=== PATIENT | male | born 1950 | race Caucasian/White ===

== ENCOUNTER 2016-10-26 15:52 | Inpatient (IN) | payer OTHER ==
[~2016-10-26] VITALS: Ht 170.2 cm; Wt 98.5 kg
--- NOTE | ~2016-10-26 | O ---
[facility] [place] [address] OPERATIVE REPORT Name: TREY LOWRY Room #: 239-P [facility] IN M.R.#: [id number] Admission: 10/26/16 Attend Phys: Trey Dunham MD Discharge: Date of : 50 Report #: [id number] THIS REPORT FOR: //name// CC: John HU DATE OF SERVICE: 11/04/2016 DATE OF OPERATION: 11/04/2016 PREOPERATIVE DIAGNOSES: 1. Mediastinal adenopathy. 2. Interstitial pneumonitis. POSTOPERATIVE DIAGNOSES: 1. Mediastinal adenopathy. 2. Interstitial pneumonitis. 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 OPERATIVE PROCEDURES PERFORMED: 1. Mediastinoscopy. 2. Left thoracotomy with decortication of left lower lobe. 3. Biopsy of left lower lobe. SURGEON: Dr. Trey Dunham. CURING BIN OPERATOR: RODOLFO Dueñas ANESTHESIA: General. OPERATIVE INDICATIONS: The patient is a 66-year-old male with a prolonged complex history. The patient underwent decortication on the right side with findings consistent with an old hematoma/fibrothorax on that side. The patient has been slow to recover and has experienced persistent dyspnea on exertion. Repeat CT imaging has demonstrated evidence of progressive enlargement of mediastinal lymph nodes as well as a diffuse interstitial type pneumonitis present. The patient is subsequently brought to the operating now for further evaluation of these findings. Informed consent was obtained prior to proceeding with this procedure. OPERATIVE SUMMARY: The patient was brought to the operating room and placed on the OR table in supine position. After anesthesia was induced via the general endotracheal route and monitoring lines have been positioned, the patient was prepped and draped in a sterile fashion with chlorhexidine. We first made the incision low in the midline neck. We dissected down through the platysma and [address] [address] OPERATIVE REPORT Name: TREY LOWRY Room #: 239-P [facility] IN M.R.#: [id number] Admission: 10/26/16 Attend Phys: Trey Dunham MD Discharge: Date of : 50 Report #: [id number] subcutaneous tissues. We found the midline raphae, incised it and retracted the strap muscles laterally. The pretracheal fascia was incised and I was able to easily dissect bluntly with a finger into the right paratracheal space. A mediastinoscope was introduced and multiple lymph nodes from this site were biopsied. Once adequate hemostasis was achieved, the mediastinoscope was removed and the wound was closed in multiple layers with absorbable suture. Sterile dressing was applied. Drapes were removed. The patient was then placed in the right lateral decubitus position and prepped and draped in a sterile fashion again. We then made a small incision in the left chest wall, the eighth intercostal space in the posterior axillary line. I attempted to gain access to the pleural space; however, it was apparent this would not be fruitful. I then extended this incision to perform a partial thoracotomy. As we entered the left pleural space with difficulty, we found that we had actually entered into the space of a fibrous old organized fibrothorax. We ran into a chronic hematoma at the base and debrided all of this material and irrigated it. Underlying it was a very thick fibrous coating. This coating was incised and then meticulously dissected off of the left lower lobe. We also dissected it off the diaphragm as best as could be managed. The dissection was quite tedious and required extending the incision into a standard posterolateral thoracotomy. We did enter the pleural space through the seventh intercostal space and then also through the fifth intercostal space to continue the dissection more cephalad. The upper lobe did not appear to be involved, primarily it was the left lower lobe that was compressed. At the completion of the decortication, we placed two 32-[place] chest tubes and a 24 Lev drain in the left pleural space bringing them all out through separate stab incisions. The ribs were reapproximated with #1 PDS. The muscular layers were closed with #1 Vicryl, the subcutaneous with 2-0 Vicryl and the skin with a 3-0 Monocryl. The procedure was completed and the patient was taken to the postanesthesia care unit in stable condition. The operative blood loss approximately 300 mL. It should be noted that frozen section analysis of the lymph nodes demonstrated evidence of acute and chronic inflammation only. It also should be noted that once dissection of the lung was completed, I used a 15 blade and made a pulmonotomy to excise a small wedge shape section of the left lower lobe posteriorly. The site was oversewn with a 0 chromic suture. Once the procedure was completed, the wounds were closed. The patient was taken directly to the Intensive Care Unit in stable condition. <ELECTRONICALLY SIGNED> By: Trey Dunham MD 11/07/16 0744 [id number] [id number] Trey Dunham MD /nt
--- NOTE | ~2016-10-26 | CNG ---
[facility] [place] [address] CYTO-NONGYN REPORT PROCEDURE Name: TREY LOWRY Room #: 239-P ADM IN M.R.#: [id number] Admission: 10/26/16 Date of : 50 Discharge: Report #: [id number] Path Case #: [id number] CYTOPATHOLOGY REPORT COLLECTION DATE: 11/10/2016 RECEIVED DATE: 11/10/2016 SUBMITTING PHYS: Dr. Trey Dunham OTHER PHYS: Dr. Ayaan Reza CLINICAL HISTORY: SOA SPECIMEN(S) RECEIVED: A.Sputum Cytology * * * * * * * * * * * * FINAL DIAGNOSIS: Sputum cytology: - Few atypical cells identified. - Few atypical squamous metaplastic cells identified amongst bronchial epithelial cells, alveolar macrophages, and squamous cells. COMMENT: Suggest clinical correlation and repeat evaluation if clinically indicated. (JASPAL:; d/t: 11/11/16) PATHOLOGIST: Polo Underwood M.D. REPORT ELECTRONICALLY SIGNED BY: Polo Underwood M.D. DATE/TIME: 11/11/2016 13:46 * * * * * * * * * * * * GROSS PATHOLOGY: A. Sputum Cytology: The specimen is submitted unfixed, labeled "Trey Lowry". Received by the Cytology Department is 0.5 mL of mucoid material. One ThinPrep slide was prepared. ([facility] 11.10.2016) FIRE EQUIPMENT INSPECTOR HELPER(S): DELLA Zavala(ASCP) INITIAL CPT CODE(S): A; 01190 Professional services performed by [facility] at [facility] [address], [place] [address] Technical services performed by [facility] at [address] [place] [address]., [address], [place] [address]. [facility] [address] [place] [address] CYTO-NONGYN REPORT PROCEDURE Name: TREY LOWRY Room #: 239-P ADM IN M.R.#: [id number] Admission: 10/26/16 Date of : 50 Discharge: Report #: [id number] Path Case #: [id number] [facility] [address] [place] [address], [address] [place] [address] PHONE: [phone] DIRECTOR: Cesar Hannon M.D. * * * END OF REPORT * * *
--- NOTE | ~2016-10-26 | HC ---
[facility] [place] [address] CONSULTATION Name: LAVERN LOWRY Room #: 448-P [facility] IN M.R.#: [id number] Admission: 10/26/16 Attend Phys: Anselmo Bahena MD Discharge: Date of : 50 Report #: [id number] THIS REPORT FOR: //name// CC: Anselmo HU REASON FOR CONSULTATION: Chronic kidney disease. REASON FOR PRESENTATION: Shortness of breath. HISTORY OF PRESENT ILLNESS: This is a 66-year-old male patient with known past medical history of coronary artery disease; diastolic dysfunction, grade 2 with nirm-ld-xluixcfa aortic stenosis. He also has mild mitral stenosis. He was discharged from the hospital in August after having a loculated pleural effusion with empyema and underwent a video-assisted thoracoscopy and thoracotomy along with decortication. He is known to have chronic kidney disease with a baseline creatinine anywhere from 1.6 to 1.8. He is maintained on Lasix 60 mg twice a day. He visited with his local hospital in [place] after he started to have shortness of breath. This has progressively worsened over the last few days. He is also maintained on home oxygen. He had to increase the amount of his home oxygen because of the shortness of breath that was progressively worsening, associated with dyspnea on exertion. He did not notice any change in his weight. There was not any chest pain. There was not any change in his medications. He is strict with his salt intake. He realized that his O2 sat was on the low side and decided to present with the outside facility that transferred him to our facility for further evaluation and management. He continues to make appropriate amount of urine. I was consulted to manage his chronic kidney disease and his creatinine seems to be at his baseline. PAST MEDICAL HISTORY: 1. Diastolic grade 2 heart failure with almost normal ejection fraction. 2. Coronary artery disease. Status post CABG. 3. Chronic kidney disease. 4. Hyperlipidemia. 5. Hypertension. 6. Multiple coronary artery stents. 7. Peripheral arterial disease post fem-pop bypass. 8. Right endarterectomy. 9. Recent thoracotomy for empyema and decortications. SOCIAL HISTORY: He smokes cigar. He quit in 1979. No drug or alcohol abuse. He works at an [employer] store. ALLERGIES: AVANDIA. REVIEW OF SYSTEMS: GENERAL: No fever or chills. [facility] [address] [place] [address] CONSULTATION Name: LAVERN LOWRY Room #: 448-P [facility] IN M.R.#: [id number] Admission: 10/26/16 Attend Phys: Anselmo Bahena MD Discharge: Date of : 50 Report #: [id number] CARDIOVASCULAR: As per the history of present illness. PULMONARY: No cough, but significant shortness of breath. GASTROINTESTINAL: No nausea or vomiting. GENITOURINARY: No frequency. No urgency. MEDICATIONS: The patient's home medications include the followin. Levothyroxine. 2. Aspirin. 3. Norvasc. 4. Clonidine p.r.n. 5. Furosemide 60 twice a day. 6. Losartan. 7. Metoprolol. 8. Gabapentin. PHYSICAL EXAMINATION: GENERAL: He is alert and oriented. He is on 5 liters of oxygen with an O2 sat of 95 by nasal. VITAL SIGNS: Blood pressure 138/59. HEAD AND NECK: No jugular venous distention, no bruit, no thyromegaly. CHEST: Decreased air entry bilaterally, with minimal crackles. CARDIOVASCULAR: Regular with no rub detected. There is a systolic murmur at the apical area. ABDOMEN: Soft, nontender with no hepatosplenomegaly. LOWER EXTREMITIES: Chronic venous stasis changes. LABORATORY DATA: Laboratory values reviewed. His creatinine is at baseline at 1.8. BNP is elevated. Blood gas showed CO2 retention. White blood cell count is mildly elevated. ASSESSMENT, IMPRESSION AND PLAN: 1. Chronic kidney disease, at baseline. 2. Pulmonary edema. 3. Hypertension. 4. Coronary artery disease. 5. Status post decortication due to empyema recently. 6. Seems to be stable from the renal perspective. I will increase his diuretic regimen. He is known to have diastolic dysfunction and aortic stenosis along with mitral stenosis. He is currently maintained on appropriate medications including losartan and metoprolol. 7. Blood pressure seems to be under well control. 8. Strict input and output. 9. Low-salt diet. 10. Pulmonary workup in progress. 11. Follow electrolytes. [address] [address] CONSULTATION Name: LAVERN LOWRY Room #: 448-P [facility] IN M.R.#: [id number] Admission: 10/26/16 Attend Phys: Anselmo Bahena MD Discharge: Date of : 50 Report #: [id number] 12. Follow urine output. 13. Optimize his heart condition. <ELECTRONICALLY SIGNED> By: Yasmine Rider MD 10/30/16 0934 0801 1548 Yasmine Rider MD /nt
--- NOTE | ~2016-10-26 | CNG ---
[facility] [place] [address] CYTO-NONGYN REPORT PROCEDURE Name: TREY LOWRY Room #: 239-P ADM IN M.R.#: [id number] Admission: 10/26/16 Date of : 50 Discharge: Report #: [id number] Path Case #: [id number] CYTOPATHOLOGY REPORT COLLECTION DATE: 11/04/2016 RECEIVED DATE: 11/08/2016 SUBMITTING PHYS: Dr. Shruthi Iglesias OTHER PHYS: Dr. Ayaan Elizabeth CLINICAL HISTORY: OPONC/ ostomy, SOA See also [id number] SPECIMEN(S) RECEIVED: A.Sputum * * * * * * * * * * * * FINAL DIAGNOSIS: A. Sputum: - No malignant cells identified. Alveolar macrophages, few bronchial cells and mucoid debris identified. PATHOLOGIST: Jaki Evans M.D. REPORT ELECTRONICALLY SIGNED BY: Jaki Evans M.D. DATE/TIME: 11/09/2016 15:22 * * * * * * * * * * * * GROSS PATHOLOGY: A. Sputum Cytology: The specimen is submitted unfixed, labeled "Trey Lowry". Received by the Cytology Department is 2 mL of red fluid. One ThinPrep slide was prepared. ([facility] 11.08.2016) RESIDENTIAL COLLECTIONS(S): DELLA Zavala(ASCP) INITIAL CPT CODE(S): A; 12718 Professional services performed by [facility] at [facility] [address], [place] [address] Technical services performed by [facility] at [address] [place] [address]., [address], [place] [address]. [facility] [address] [place] [address] CYTO-NONGYN REPORT PROCEDURE Name: TREY LOWRY Room #: 239-P ADM IN M.R.#: [id number] Admission: 10/26/16 Date of : 50 Discharge: Report #: [id number] Path Case #: [id number] [address] [facility], [address] [place] [address] PHONE: [phone] DIRECTOR: Cesar Hannon M.D. * * * END OF REPORT * * *
--- NOTE | ~2016-10-26 | S ---
[facility] [place] [address] SURGICAL PATH RPT PROCEDURE Name: LAVERN LOWRY Room #: 448-P ADM IN M.R.#: [id number] Admission: 10/26/16 Date of : 50 Discharge: Report #: [id number] Path Case #: [id number] PATHOLOGY REPORT COLLECTION DATE: 10/28/2016 RECEIVED DATE: 10/28/2016 SUBMITTING PHYS: Dr. Omaira Troncoso OTHER PHYS: Dr. Ayaan Rider SPECIMEN(S) RECEIVED: A.Peripheral smear * * * * * * * * * * * * FINAL DIAGNOSIS: Peripheral blood smear: - Moderate normocytic anemia. (see comment) COMMENT: Overall, the peripheral blood has moderate normocytic anemia. There is a slight suggestion of rouleaux. WBC and platelet counts are within the normal reference ranges. The etiology of the findings is unclear based entirely on slide review. Potential causes of normocytic anemia include anemia of chronic disease, treated and/or compensated vitamin and mineral deficiencies, acute blood loss, dilutional, and primary bone marrow disorders. Rouleaux can be seen in chronic inflammatory states and increased immunoglobulin production. Correlation with clinical history and additional laboratory data is recommended. (LEONEL:; d/t: 10/28/16) PATHOLOGIST: Anitha Landeros M.D. REPORT ELECTRONICALLY SIGNED BY: Anitha Landeros M.D. DATE/TIME: 10/28/2016 23:10 * * * * * * * * * * * * MICROSCOPIC DESCRIPTION: CBC Data (10/28/16): WBC 8,900 /uL, RBC 2.91, hemoglobin 8.4 g/dL, hematocrit 26.0%, MCV 89.2 fL, MCH 29.0 pg, MCHC 32.5 g/dL, RDW 17.0%, and platelet count 279,000 /uL. Automated white blood cell differential: 68.8% segs, 13.5% lymphs, 10.5% monos, 6.5% eos, and 0.7% basos. Peripheral Blood Smear: Cytomorphological examination of the Serna's stained peripheral blood smear confirms the provided data. Red blood cells show moderate to severe normocytic anemia with no significant [address] [address] SURGICAL PATH RPT PROCEDURE Name: LAVERN LOWRY Room #: 448-P ADM IN M.R.#: [id number] Admission: 10/26/16 Date of : 50 Discharge: Report #: [id number] Path Case #: [id number] anisopoikilocytosis. No schistocytes or microspherocytes are seen. There is a slight suggestion of rouleaux. White blood cells are predominantly segmented neutrophils and are without significant dyspoiesis or significant left shift. Lymphocytes are predominantly small, round, and mature appearing with condensed chromatin and scant cytoplasm with admixed large granular lymphocytes. Monocytes are mature. Platelets are adequate in number and mainly normal in morphology with rare larger platelets noted. CLINICAL HISTORY: 66 year-old man with anemia. Morphologic review of the peripheral blood smear is requested by the patient's physician. INITIAL CPT CODE(S): A; NC Professional services performed by [facility] at [facility] [address], [place] [address] Technical services performed by [facility] at [address] [place] [address], [address] [address]. [facility] [address] [place] [address] PHONE: [phone] DIRECTOR: Cesar Hannon M.D. * * * END OF REPORT * * *
--- NOTE | ~2016-10-26 | HC ---
[facility] [place] [address] CONSULTATION Name: LAVERN LOWRY Room #: 448-P ADM IN M.R.#: [id number] Admission: 10/26/16 Attend Phys: Luisa Spencer MD Discharge: Date of : 50 Report #: [id number] THIS REPORT FOR: //name// CC: Luisa HU HISTORY OF PRESENT ILLNESS: The patient was admitted on 10/26/2016 for shortness of breath. The patient consulted today. Admitting physician is Dr. Ng. We are being consulted today for increased size and mediastinal adenopathy. The patient is known to our service, had recently underwent a right thoracotomy with decortication for empyema on 09/15/[address] Levi Mcclendon. The patient is still complaining of some shortness of breath and dyspnea on exertion and orthopnea. PAST MEDICAL HISTORY: Diastolic congestive heart failure, unknown ejection fraction, coronary artery disease, chronic kidney disease stage III, diabetes type 2, hypertension, hyperlipidemia, hypothyroidism. PAST SURGICAL HISTORY: Right thoracotomy with decortication as previously stated, coronary artery bypass grafting x 1 in 2002 followed by coronary catheterization in 2014 with stent placement and has had previous right fem-pop as well as a right carotid endarterectomy with a great toe I and D. SOCIAL HISTORY: The patient currently lives at home. He quit smoking cigars in 1979. He occasionally drinks wine. The patient works in an [employer] store. FAMILY HISTORY: Mother and father are both . Mother was 80. Complications of diabetes. Father was 63, [place]. ALLERGIES: LATEX. HOME MEDICATIONS: As follows: Clonidine, Lasix 20 mg, losartan 50 mg, metoprolol 50 mg, NovoLog, levothyroxine 150 mcg, aspirin 81 mg, gabapentin 300 mg, atorvastatin 80 mg, and amlodipine 10 mg. REVIEW OF SYSTEMS: CONSTITUTIONAL: The patient does complain of some fatigue and difficulty sleeping. HEENT: Denies any headache, dizziness or hearing loss. RESPIRATORY: Does complain of shortness of breath, dyspnea on exertion with orthopnea. Denies any wheezing. Has occasional cough. CARDIOVASCULAR: Denies chest pain, jaw pain, arm pain or murmurs. SKIN: Denies any rashes, psoriasis or eczema. ENDOCRINE: Denies cold feet, night sweats, lack of concentration. GASTROINTESTINAL: Denies nausea, vomiting, diarrhea. Does have issues with constipation. GENITOURINARY: Denies any urinary frequency, hematuria or dysuria. [facility] [address] [place] [address] CONSULTATION Name: LAVERN LOWRY Room #: 448-P [facility] IN M.R.#: [id number] Admission: 10/26/16 Attend Phys: Luisa Spencer MD Discharge: Date of : 50 Report #: [id number] NEUROLOGIC: Denies seizures or neuropathy. PSYCHOLOGICAL: Denies hallucination, depression or anxiety. MUSCULOSKELETAL: Denies joint pain, stiffness, swelling or claudication. IMMUNOLOGIC: Denies lupus, rheumatoid arthritis or celiac disease. PHYSICAL EXAMINATION: VITAL SIGNS: Blood pressure is 119/55, pulse of 61, respirations 22, temperature is 36.2, O2 sat of 94% at 8-1/2 liters via nasal cannula. GENERAL: The patient is well developed, well nourished, mildly obese, has normal speech and mentation. HEENT: Eyes are PERRLA. He is normocephalic. Gaze appearing conjugate in all positions. No evidence of nystagmus. CARDIOVASCULAR: Shows regular rate and rhythm. S1, S2. LUNGS: Shows some fine crackles throughout, diminished to right lower lobe and coarseness to left lower lobe. ABDOMEN: Soft, nontender. Bowel sounds present in all 4 quadrants. SKIN: Shows normal color, normal turgor. MUSCULOSKELETAL: Has 5/5 strength in all muscle groups. NEUROLOGIC: Cranial nerves 2-12 are examined and intact. PSYCHIATRIC: The patient is alert and oriented x 3. LABORATORY DATA: Sodium is 140, potassium is 5.1, chloride 102, CO2 is 40, BUN is 75, creatinine is 2.2. White blood cell count is 10.5, hemoglobin is 8.7, hematocrit 16.2 and platelets are 211. ASSESSMENT: 1. Mediastinal adenopathy. 2. The patient's recent empyema, status post right thoracotomy with decortication on 09/15/[address] Levi Mcclendon. 3. Chronic kidney disease. 4. Hypertension. PLAN: We have discussed with myself the plan of potential mediastinoscopy for diagnostic tissue, will be in later today and discuss in more detail and give final recommendation and possible planning and scheduling this gentleman. By: [id number] 2315 RODOLFO Encarnacion /nt
--- NOTE | ~2016-10-26 | HC ---
[facility] [place] [address] CONSULTATION Name: TREY LOWRY Room #: 215-P [facility] IN M.R.#: [id number] Admission: 10/26/16 Attend Phys: Trey Dunham MD Discharge: Date of : 50 Report #: [id number] THIS REPORT FOR: //name// CC: Trey HU HISTORY OF PRESENT ILLNESS: This is a 66-year-old white male who was recently hospitalized here on 09/09/2016, noted to have a loculated pleural effusion and underwent bronchoscopy with a right video-assisted thoracoscopy and a right thoracotomy with decortication on 09/15/2016. He was treated for acute on chronic diastolic heart failure. He was discharged home. He was on a couple of liters nasal prong O2. He initially was doing well, but then began having worsening shortness of breath. He was readmitted with acute on chronic congestive heart failure. He had respiratory failure, cardiology and pulmonary have been closely involved and he warranted mechanical ventilation in the intensive care unit. He was able to be extubated on 11/11/2016. He has been on 4 liters nasal prong O2. Nephrology has been involved as well as hematology with his anemia. He does have anemia of chronic disease. He was noted to have significant weakness, had been on high dose methylprednisolone as well as electrolyte abnormalities, chronic kidney disease and the anemia. We are seeing him in rehabilitation medicine consultation. Apparently, a surgical biopsy that was undertaken of his lung [facility] with results pending. PAST MEDICAL HISTORY: Includes coronary artery bypass grafting times 1, fem-pop bypass of the right lower extremity, and right carotid endarterectomy. MEDICATIONS: Please see the full medication listing. SOCIAL HISTORY: Lives in [place], [place]; has been working in an [employer] store, lives in a house with a ramp. He was on nasal prong O2 a couple liters premorbidly. He has a daughter lives in [place] that assist him. He may be able to stay with the daughter as well. REVIEW OF SYSTEMS: Did not offer any current complaints of chest pain, shortness of breath or abdominal discomfort. He notes some shortness of breath with limited activities. Does complain of generalized weakness. No focal extremity pain complaints. PHYSICAL EXAMINATION: GENERAL: A 66-year-old white male, in no obvious distress. The patient is alert and oriented. VITAL SIGNS: Last recorded temperature 98.4, pulse 66, respirations 20, blood pressure 147/63. HEENT: Appeared to be benign. Cranial nerves are grossly intact. He is currently on 4 liters nasal prong O2. EXTREMITIES: Functional range of motion of both upper extremities. Strength is grade 3+ to 4-/5. DTRs are trace to 1. Lower extremities, no focal calf [facility] [address] [place] [address] CONSULTATION Name: TREY LOWRY Room #: 215-P ADM IN M.R.#: [id number] Admission: 10/26/16 Attend Phys: Trey Dunham MD Discharge: Date of : 50 Report #: [id number] swelling, functional range of motion with strength a grade 4-/5. DTRs are trace to 1. He has been mod assist with sit to stand and had been ambulating 4 steps min assist with 5 liters. ASSESSMENT: A 66-year-old white male with the following problem list: 1. Medical complexity with generalized debilitation. He may have a critical illness myopathy with the prolonged mechanical ventilation, ICU stay, IV methylprednisolone, electrolyte abnormalities, and metabolic abnormalities. 2. Respiratory failure, acute on chronic since extubated on nasal prong O2. 3. Acute on chronic congestive heart failure. 4. Mediastinal adenopathy status post video-assisted thoracoscopy with decortication and biopsy. 5. Moderate aortic stenosis. 6. Coronary artery disease with history of coronary artery bypass grafting and coronary angioplasty. 7. Hypertension. 8. Hypercholesterolemia. 9. Peripheral vascular disease with history of femoral popliteal bypass and right carotid endarterectomy. 10. Acute on chronic renal insufficiency. 11. Diabetes mellitus type 2. 12. Anemia. 13. Hyponatremia. 14. Moderate protein-calorie malnutrition. PLAN: Therapies are continuing to work with him. Insurance will need to be checked regarding a short acute in-hospital inpatient rehabilitation stay. We will see how he does and follow along with you. Thank you for asking us to assist in this patient's care. <ELECTRONICALLY SIGNED> By: Max Macdonald MD 11/14/16 1648 [id number] Max Macdonald MD /nt
--- NOTE | ~2016-10-26 | S ---
[facility] [place] [address] SURGICAL PATH RPT PROCEDURE Name: TREY LOWRY Room #: 215-P ADM IN M.R.#: [id number] Admission: 10/26/16 Date of : 50 Discharge: Report #: [id number] Path Case #: [id number] PATHOLOGY REPORT COLLECTION DATE: 11/04/2016 RECEIVED DATE: 11/04/2016 SUBMITTING PHYS: Dr. Trey Dunham OTHER PHYS: Dr. Ayaan Spencer ADDENDUM REPORT (Order Date: 11/10/2016 00:00) ADDENDUM DIAGNOSIS: Patient Name: Trey Lowry: [id number] Special [place] [address], on case [id number], labeled with their number [id number], dated 11/09/2016. Diagnosis: Lung, left lower lobe, wedge biopsy ([id number]; 11/04/2016): Pleural scarring and underlying lung tissue showing extensive hemorrhage, probably traumatic, and marked mural vascular thickening, probably secondary (see below). Diagnosis Comment: Dear Dr. Landeros, I have reviewed the slides of Trey Lowry along with the records you provided. Briefly this patient is a 66-year-old man who has bilateral loculated effusions with some changes raising the possibility of asbestos-related disease. He has a history of chronic congestive heart failure and some pulmonary infiltrates that were thought possibly to be related to pulmonary edema. He has a history of coronary artery bypass. He is a former smoker. He had a decortication in August and has come back with increased dyspnea and lung infiltrates and a lung biopsy was taken along with a right paratracheal lymph node. The right paratracheal lymph node was sent to us for a second opinion. Sections of the left lower lobe wedge biopsy were sent for a second opinion. I cannot make any specific diagnosis for an interstitial lung disease here and it is not clear we have a good sample of what is going on in his lung away from the regions of pleural scarring and atelectasis. There appears to have been significant adhesions based on the pleural scarring that is present and I suspect that explains the extensive fresh hemorrhage that is present in the lung tissue. I take the hemorrhage to be artifact. The lung tissue does show appreciable mural vascular thickening with some elastosis and adventitial fibrosis and some vessels showing myointimal thickening. I suspect these are probably all local changes related to chronic atelectasis and/or pleural scarring in this region. Some of the changes could also be due to cardiac disease. The [place] [address] SURGICAL PATH RPT PROCEDURE Name: TREY LOWRY Room #: 215-P [facility] IN M.R.#: [id number] Admission: 10/26/16 Date of : 50 Discharge: Report #: [id number] Path Case #: [id number] pulmonary vascular disease, but that would be best assessed clinically. In summary, I am not able to identify any definite underlying interstitial lung disease although this is a suboptimal biopsy based on the adhesions and hemorrhage to address such a possibility. Thank you for the opportunity to review this case. Sincerely, Rodolfo Espinoza M.D. Electronically signed Specimen(s): A:Lung, left lower lobe, biopsy-([id number]; 11/04/2016; 3 slides) A complete copy of the report is on file. Professional services performed by [address] [address]. Technical services performed by [facility] [address] [place] [address], [address], [place] [address]. ADDENDUM COMMENT: ELECTRONICALLY SIGNED BY: Jaki Evans M.D. for Anitha Landeros M.D. DATE/TIME:11/15/2016 10:54 SPECIMEN(S) RECEIVED: A.Right paratracheal lymp nodes B.Left lower lung lobe biopsy * * * * * * * * * * * * FINAL DIAGNOSIS: A. "Right paratracheal lymp nodes," incisional biopsy: - Lymph nodes with mildly atypical lymphoplasmacytic hyperplasia; no diagnostic evidence of lymphoma or metastatic carcinoma. (see comment) B. "Left lower lung lobe biopsy," wedge biopsy: - Pending outside consultation. (see comment) COMMENT: Within specimen A, sections show fragments of lymph node with overall retained but mildly distorted lymph node architecture. There are expanded sinuses with benign appearing histiocytes. Small scattered well formed germinal centers containing polarized mantle/marginal zones are identified. There is an interfollicular expansion by mature appearing plasma cells. The plasma cells are without marked [facility] [address] [place] [address] SURGICAL PATH RPT PROCEDURE Name: TREY LOWRY Room #: 215-P ADM IN M.R.#: [id number] Admission: 10/26/16 Date of : 50 Discharge: Report #: [id number] Path Case #: [id number] atypia. The lymphocytes are predominantly small, round, and mature appearing with condensed chromatin and scant cytoplasm with admixed larger lymphoid cells within the germinal centers. No markedly atypical lymphoid cells, including Eliazar-Shaggy cells, are identified. No granulomas or other infiltrative processes including metastatic carcinoma are identified. To highlight the lymph node architecture and to identify cells in a tissue architectural context, properly controlled immunohistochemical stains are performed. (Block A1) CD20: highlights B-cells primarily in follicles PAX-5: highlights B-cells primarily in follicles CD3: stains interfollicular T-cells CD5: stains interfollicular T-cells; no B-cell co-expression CD10: stains the germinal centers BCL-6: stains the germinal centers BCL-2: the germinal centers are non-reactive CD23: highlights follicular dendritic cell meshwork Cycl[place] D-1: lacks diffuse nuclear staining CD43: highlights the T-cells; no B-cell co-expression MUM-1: stains the numerous sinus plasma cells CD138: stains the numerous sinus plasma cells AE1/AE3: non-reactive [place] and lambda in situ hybridization: plasma cells are polyclonal The left lower lobe lung biopsy was sent for outside consultation to the [facility] in [place], [place]. The findings will be reported as an addendum when available. Overall, the lymph nodes show mildly atypical lymphoplasmacytic hyperplasia. There is no diagnostic evidence of lymphoma or metastatic carcinoma. The lung biopsy is pending outside consultation. Clinical and radiographic correlation is recommended. The case is discussed preliminarily with Dr. Omaira Troncoso on 11/09/16 at 11:15 AM. (CLW:; d/t: 11/09/16) PATHOLOGIST: Anitha Landeros M.D. REPORT ELECTRONICALLY SIGNED BY: Anitha Landeros M.D. DATE/TIME: 11/10/2016 17:10 * * * * * * * * * * * * GROSS PATHOLOGY: A. The specimen is received fresh from the OR labeled with the patient's name and "right paratracheal lymph node" and consists of red villasenor fragments of tissue measuring an aggregate of 2.0 x 1.5 x 0.5 cm. Submitted entirely for frozen section as FSA1 and subsequently submitted for permanent section as A1. (IUV:pete; d/t: 11/04/2016) [address] [address] SURGICAL PATH RPT PROCEDURE Name: TREY LOWRY Room #: 215-P ADM IN .R.#: [id number] Admission: 10/26/16 Date of : 50 Discharge: Report #: [id number] Path Case #: [id number]. The specimen is received in formalin labeled "Trey Lowry, left lower lobe lung biopsy". Received is a segment of red-brown lung tissue measuring 2.1 x 2.1 x 1.1 cm in greatest dimensions. The surgical margin cannot be grossly identified. The specimen is serially sectioned and entirely submitted in cassettes B1 through B3. (CAA; 11/04/2016) FROZEN SECTION DIAGNOSIS: (Jaki Evans M.D.) FSA1, right paratracheal lymph nodes, biopsy: - No definite carcinoma seen. These findings are discussed with Dr. Spencer in OR5 at [facility], and a written report is placed on the patient's chart. IUV:pete; d/t: 11/04/2016) Testing performed by [facility] at [place] [address] [place] [address] CLINICAL HISTORY: History of interstitial lung disease ?undergoing wedge biopsy currently along with mediastinoscopy to rule out lung cancer INITIAL CPT CODE(S): A; 30037, 52712, 62806, 82001, 92162, 37937, 66394, 28401, 03319, 63832, 30981, 38065, 67745, 23906, 99066, 41801, 65516 B; 56711 Professional services performed by [facility] at [facility] [address], [place] [address] Technical services performed by [facility] at [address] [place] [address], [address], [place] [address]. [facility] [address] [place] [address] PHONE: [phone] DIRECTOR: Cesar Hannon M.D. * * * END OF REPORT * * *
--- NOTE | ~2016-10-26 | 2DMMODE ---
[facility] [place] [address] 2 D/M-MODE ECHOCARDIOGRAM Name: LAVERN LOWRY Room #: 239-P ADM IN M.R.#: [id number] Admission: 10/26/16 Attend Phys: Lavern Dunham, Discharge: Date of : 50 Date of Service: 11/04/16 180 Report #: [id number] THIS REPORT FOR: //name// APPROVED REPORT Study performed: 11/04/2016 14:04:23 EXAM: Limited 2D, Doppler, and color-flow Echocardiogram Patient Location: Bedside/Room 239 Blood Pressure: 136/64 mmHg HR: 74 bpm Rhythm: NSR Other Information Study Quality: Adequate/Patient in ICU post op on vent. Indications Abbreviated echo for LV function, PHTN. Hx: CHF, CABG, HTN, DM. (Complete echo done 09/10/2016) 2D Dimensions RVDd: 37.32 mm Tricuspid Valve TR Peak Burak.: 3.97 m/s RAP Estimate: 10.00 mmHg TR Peak Gr.: 62.95 mmHg RVSP: 73.00 mmHg Left Ventricle The left ventricle is normal size. There is normal LV segmental wall motion. There is concentric left ventricular hypertrophy. Left ventricular systolic function is normal. LVEF is 55-60%. Right Ventricle The right ventricle is normal size. The right ventricular systolic function is normal. Atria Left atrium is dilated. The right atrium size is normal. Aortic Valve Aortic valve moderately calcified. No Doppler [facility] [address] [place] [address] 2 D/M-MODE ECHOCARDIOGRAM Name: LAVERN LOWRY Room #: 239-P ADM IN M.R.#: [id number] Admission: 10/26/16 Attend Phys: Lavern Dunham, Discharge: Date of : 50 Date of Service: 11/04/161806 Report #: [id number] Mitral Valve Severe mitral annular calcification. Thickened and calcified leaflets. Trace to mild mitral regurgitation. Tricuspid Valve The tricuspid valve is normal in structure. There is moderate tricuspid regurgitation. The right atrial pressure is estimated at 10 mmHg. There is severe pulmonary hypertension with an estimated PAP of 73mmHg. Great Vessels IVC is normal in size and collapses <50% with inspiration. Pericardium There is no pericardial effusion. <Conclusion> Left ventricular systolic function is normal. There is normal LV segmental wall motion. LVEF 55-60%. Left atrium is dilated. Aortic valve moderately calcified. No Doppler Severe mitral annular calcification. Thickened and calcified leaflets. No Doppler There is severe pulmonary hypertension with an estimated PAP of 73mmHg. There is no pericardial effusion. <ELECTRONICALLY SIGNED> By: Cain Wang MD, [facility] 11/04/161806 06 1807 Cain Wang MD, FACC /INF
[~2016-10-26 15:52] MED LIST: AMLODIPINE BESY10 MG PO; ASPIRIN81 M2 PO; ATORVASTATIN CA40 MG PO; BRILINTA90 MG PO; CENTRUM SILVER1 EAC4 PO; CLONIDINE0.1 PO; COZAAR 50 MG TA50 M2 PO; LASIX 20 MG TAB20 MG PO; LEVOTHYROXINE 0.15MG PO; LOPRESSOR50 PO; NEURONTIN 300300 M1 PO; NOVOLOG MI100 UNIT/M SC; NOVOLOG100 UNIT/1
[2016-10-26 21:05] VITALS: BP 147/59
[2016-10-26 21:37] LABS: HEMATOCRIT 26.1 % (42.0-52.0); HEMOGLOBIN 8.4 gm/dL (14.0-18.0); MCH 28.8 pg (26.0-34.0); MCHC 32.3 g/dL (28.0-37.0); MCV 89.2 fL (80.0-100.0); RBC 2.93 mil/uL (4.50-6.00); RDW 17.1 % (10.5-14.5); WBC 11.7 thou/uL (4.0-11.0)
[2016-10-26 21:44] LABS: ANION GAP 0 mmol/L (7-16); BUN 57 mg/dL (7-18); CALCIUM 9.5 mg/dL (8.5-10.1); CHLORIDE 98 mmol/L (98-107); CO2 39 mmol/L (21-32); CREATININE 1.8 mg/dL (0.6-1.3); GLUCOSE 201 mg/dL (70-99); SODIUM 137 mmol/L (136-145)
[2016-10-26 21:52] LABS: TROPONIN-I < 0.04 ng/mL (<0.04-0.07)
[2016-10-26 23:07] LABS: ABG SAMPLE TYPE ARTERIAL; BE(vivo) 12.7 mmol/L (-2 to +3); HCO3 38.2 mmol/L (22.0-26.0); LACTATE 1.12 mmol/L (0.5-2.0); O2(CT) 12.2 mL/dL (15.0-23.0); O2Hb 91.7 % (92.0-98.0); PCO2 55.5 mmHg (35.0-45.0); PO2 69.6 mmHg (80.0-100.0); STICK SITE RRA; pH 7.456 (7.360-7.450); sO2 94.4 % (92.0-98.0); tCO2 39.9 mmol/L (24.0-30.0)
[2016-10-26 23:20] VITALS: BP 149/68
[2016-10-27 00:02] VITALS: BP 142/74
[2016-10-27] MEDS ORDERED: NEURONTIN 300300 M1 PO (01:57)
[2016-10-27] MEDS ORDERED: CENTRUM SILVER1 EAC4 PO (01:58)
[2016-10-27 03:00] VITALS: BP 138/59
[2016-10-27 06:49] LABS: MAGNESIUM 2.3 mg/dL (1.8-2.4); NT-PRO BRAIN NAT PEPTIDE 3986 pg/mL (<300); TROPONIN-I < 0.04 ng/mL (<0.04-0.07)
[2016-10-27 08:00] VITALS: BP 143/64
[2016-10-27 08:25] LABS: HEMOGLOBIN 8.2 gm/dL (14.0-18.0)
[2016-10-27 08:29] LABS: HEMATOCRIT 24.8 % (42.0-52.0); MCH 29.3 pg (26.0-34.0); MCV 88.7 fL (80.0-100.0); PLATELET COUNT 261 thou/uL (150-400); RDW 17.3 % (10.5-14.5); WBC 10.4 thou/uL (4.0-11.0)
[2016-10-27 08:30] LABS: MANUAL DIFF YES
[2016-10-27 09:27] LABS: ABSOLUTE NEUTROPHILS 6.9 thou/uL (1.4-8.2); TOTAL CELL COUNT 100
[2016-10-27 09:29] LABS: ANISOCYTOSIS 1+; POLYCHROMASIA OCCASIONAL
[2016-10-27 11:20] LABS: % SATURATION 9 % (20-39); IRON 19 ug/dL (65-175); TIBC 212 ug/dL (250-450); UIBC 193 ug/dL
[2016-10-27 11:33] LABS: FOLIC ACID 31.7 ng/mL (8.6-58.9)
[2016-10-27 16:00] VITALS: BP 114/49
[2016-10-27 19:50] VITALS: BP 112/48
[2016-10-28 04:55] VITALS: BP 127/52
[2016-10-28 04:58] LABS: ALBUMIN 2.2 g/dL (3.4-5.0); CALCIUM 8.7 mg/dL (8.5-10.1); CREATININE 2.3 mg/dL (0.6-1.3); PHOSPHORUS 4.7 mg/dL (2.5-4.9); POTASSIUM 4.4 mmol/L (3.5-5.1)
[2016-10-28 08:01] VITALS: BP 133/48
[2016-10-28 09:04] LABS: ABSOLUTE NEUTROPHILS 6.1 thou/uL (1.4-8.2); ABSOLUTE RETIC COUNT 0.1219 10^6/uL; BASOPHILS 0.7 % (0.0-2.0); EOSINOPHILS 6.5 % (0.0-3.0); HEMOGLOBIN 8.4 gm/dL (14.0-18.0); LYMPHOCYTES 13.5 % (24.0-44.0); MCHC 32.5 g/dL (28.0-37.0); MCV 89.2 fL (80.0-100.0); MONOCYTES 10.5 % (1.0-8.0); OBSERVED RETIC COUNT 4.19 % (0.6-2.6); PLATELET COUNT 279 thou/uL (150-400); POLYS 68.8 % (36.0-66.0); RBC 2.91 mil/uL (4.50-6.00); WBC 8.9 thou/uL (4.0-11.0)
[2016-10-28 09:05] LABS: MANUAL DIFF NO
[2016-10-28 11:29] LABS: DIRECT BILIRUBIN 0.3 mg/dL (<0.1-0.3); TOTAL BILIRUBIN 0.8 mg/dL (<0.1-1.0)
[2016-10-28 11:53] VITALS: BP 106/44
[2016-10-28 14:11] LABS: TESTOSTERONE* 282 ng/dL (348-1197)
[2016-10-28 16:05] VITALS: BP 113/46
[2016-10-28 19:14] VITALS: BP 121/59
[2016-10-29 05:29] LABS: HEMATOCRIT 23.1 % (42.0-52.0); HEMOGLOBIN 7.5 gm/dL (14.0-18.0); MCH 29.1 pg (26.0-34.0); MCHC 32.6 g/dL (28.0-37.0); MCV 89.4 fL (80.0-100.0); RBC 2.58 mil/uL (4.50-6.00); WBC 8.8 thou/uL (4.0-11.0)
[2016-10-29 05:41] LABS: ALBUMIN 2.2 g/dL (3.4-5.0); ANION GAP < 0 mmol/L (7-16); BUN 63 mg/dL (7-18); CALCIUM 8.7 mg/dL (8.5-10.1); CHLORIDE 97 mmol/L (98-107); CO2 43 mmol/L (21-32); CREATININE 2.2 mg/dL (0.6-1.3); GLUCOSE 237 mg/dL (70-99); PHOSPHORUS 4.1 mg/dL (2.5-4.9); POTASSIUM 4.6 mmol/L (3.5-5.1); SODIUM 139 mmol/L (136-145)
[2016-10-29 08:00] VITALS: BP 148/73
[2016-10-29 12:00] VITALS: BP 118/58
[2016-10-29 16:00] VITALS: BP 119/58
[2016-10-29 20:00] VITALS: BP 119/56
[2016-10-30 04:07] VITALS: BP 118/56
[2016-10-30 08:00] VITALS: BP 126/52
[2016-10-30 12:44] LABS: ALBUMIN 2.2 g/dL (3.4-5.0); ALKALINE PHOSPHATASE 85 U/L (46-116); ANION GAP < 0 mmol/L (7-16); BUN 57 mg/dL (7-18); CALCIUM 8.7 mg/dL (8.5-10.1); CHLORIDE 97 mmol/L (98-107); CO2 42 mmol/L (21-32); GLUCOSE 283 mg/dL (70-99); POTASSIUM 4.6 mmol/L (3.5-5.1); SGOT 14 U/L (15-37); SGPT 14 U/L (30-65); SODIUM 138 mmol/L (136-145); TOTAL BILIRUBIN 0.6 mg/dL (<0.1-1.0); TOTAL PROTEIN 7.1 g/dL (6.4-8.2)
[2016-10-30 16:00] VITALS: BP 120/48
[2016-10-31 05:00] VITALS: BP 119/54
[2016-10-31 05:47] LABS: HEMATOCRIT 25.1 % (42.0-52.0); MCH 28.8 pg (26.0-34.0); MCV 90.1 fL (80.0-100.0); RBC 2.78 mil/uL (4.50-6.00); RDW 17.2 % (10.5-14.5); WBC 11.3 thou/uL (4.0-11.0)
[2016-10-31 06:00] LABS: ALBUMIN 2.5 g/dL (3.4-5.0); CALCIUM 9.2 mg/dL (8.5-10.1); CREATININE 2.5 mg/dL (0.6-1.3); PHOSPHORUS 4.5 mg/dL (2.5-4.9)
[2016-10-31 06:11] LABS: ABSOLUTE RETIC COUNT 0.1128 10^6/uL; OBSERVED RETIC COUNT 4.02 % (0.6-2.6)
[2016-10-31 09:04] VITALS: BP 133/61
[2016-10-31 12:40] VITALS: BP 117/55
[2016-10-31 16:57] VITALS: BP 112/57
[2016-10-31 18:07] LABS: A/G RATIO 0.8 (0.7-1.7); ALPHA 1 0.3 g/dL (0.0-0.4); ALPHA 2 0.9 g/dL (0.4-1.0); GAMMA 1.3 g/dL (0.4-1.8); M-SPIKE Not Observed g/dL (Not Observed)
[2016-10-31 19:57] VITALS: BP 125/61
[2016-11-01] VITALS (7 sets, daily range): BP systolic 116–144; BP diastolic 47–86
[2016-11-01 06:09] LABS: ALBUMIN 2.5 g/dL (3.4-5.0); CALCIUM 8.9 mg/dL (8.5-10.1); CREATININE 2.2 mg/dL (0.7-1.3); PHOSPHORUS 3.3 mg/dL (2.5-4.9)
[2016-11-01 06:50] LABS: ABG SAMPLE TYPE ARTERIAL; BE(vivo) 12.4 mmol/L (-2 to +3); HCO3 39.3 mmol/L (22.0-26.0); LACTATE 1.04 mmol/L (0.5-2.0); O2(CT) 10.6 mL/dL (15.0-23.0); O2Hb 89.7 % (92.0-98.0); PCO2 68.6 mmHg (35.0-45.0); PO2 65.5 mmHg (80.0-100.0); STICK SITE R.BRACHIAL; pH 7.376 (7.360-7.450); sO2 91.6 % (92.0-98.0); tCO2 41.4 mmol/L (24.0-30.0)
[2016-11-02 04:55] VITALS: BP 107/39
[2016-11-02 06:05] LABS: WBC 11.9 thou/uL (4.0-11.0)
[2016-11-02 06:08] LABS: HEMATOCRIT 20.1 % (42.0-52.0); MCH 29.4 pg (26.0-34.0); MCHC 32.8 g/dL (28.0-37.0); MCV 89.6 fL (80.0-100.0); PLATELET COUNT 221 thou/uL (150-400); RBC 2.24 mil/uL (4.50-6.00); RDW 17.5 % (10.5-14.5)
[2016-11-02 06:09] LABS: MANUAL DIFF YES
[2016-11-02 06:10] LABS: HEMOGLOBIN 6.6 gm/dL (14.0-18.0)
[2016-11-02 06:29] LABS: ALBUMIN 2.3 g/dL (3.4-5.0); ANION GAP < 0 mmol/L (7-16); BUN 71 mg/dL (7-18); CALCIUM 8.9 mg/dL (8.5-10.1); CHLORIDE 101 mmol/L (98-107); CO2 40 mmol/L (21-32); CREATININE 2.2 mg/dL (0.7-1.3); GLUCOSE 146 mg/dL (74-106); PHOSPHORUS 3.8 mg/dL (2.5-4.9); POTASSIUM 5.1 mmol/L (3.5-5.1); SODIUM 140 mmol/L (136-145)
[2016-11-02 07:06] LABS: POLYCHROMASIA SLIGHT; TOTAL CELL COUNT 100
[2016-11-02 07:07] LABS: ANISOCYTOSIS 1+
[2016-11-02 07:09] LABS: HYPOCHROMASIA 2+
[2016-11-02 08:00] VITALS: BP 126/53
[2016-11-02 09:19] VITALS: BP 114/41; BP 122/54
[2016-11-02 14:18] VITALS: BP 116/49; BP 119/50; BP 123/52
[2016-11-02 19:33] LABS: HEMATOCRIT 28.8 % (42.0-52.0)
[2016-11-02 19:46] LABS: HEMOGLOBIN 9.3 gm/dL (14.0-18.0)
[2016-11-02 20:01] VITALS: BP 144/57
[2016-11-03 03:29] VITALS: BP 126/46
[2016-11-03 06:34] LABS: HEMATOCRIT 26.2 % (42.0-52.0); HEMOGLOBIN 8.7 gm/dL (14.0-18.0); MCH 29.3 pg (26.0-34.0); MCV 88.7 fL (80.0-100.0); RBC 2.96 mil/uL (4.50-6.00); RDW 18.1 % (10.5-14.5); WBC 10.5 thou/uL (4.0-11.0)
[2016-11-03 07:05] LABS: ANION GAP < 0 mmol/L (7-16); BUN 75 mg/dL (7-18); CALCIUM 9.1 mg/dL (8.5-10.1); CHLORIDE 102 mmol/L (98-107); CO2 40 mmol/L (21-32); CREATININE 2.2 mg/dL (0.7-1.3); GLUCOSE 118 mg/dL (74-106); POTASSIUM 5.1 mmol/L (3.5-5.1); SODIUM 140 mmol/L (136-145)
[2016-11-03 08:00] VITALS: BP 119/55
[2016-11-03 09:06] LABS: NT-PRO BRAIN NAT PEPTIDE 2687 pg/mL (<300)
[2016-11-03 12:00] VITALS: BP 121/51
[2016-11-03 16:00] VITALS: BP 122/48
[2016-11-03 20:00] VITALS: BP 132/55
[2016-11-04 04:10] VITALS: BP 114/89
[2016-11-04 07:52] VITALS: BP 117/51
[2016-11-04 08:15] VITALS: BP 134/64
[2016-11-04 08:20] VITALS: BP 136/64
[2016-11-04 14:14] LABS: ABG SAMPLE TYPE ARTERIAL; BE(vivo) 7.8 mmol/L (-2 to +3); HCO3 34.5 mmol/L (22.0-26.0); LACTATE 1.16 mmol/L (0.5-2.0); O2(CT) 15.5 mL/dL (15.0-23.0); O2Hb 98.1 % (92.0-98.0); PCO2 59.6 mmHg (35.0-45.0); PO2 279.3 mmHg (80.0-100.0); STICK SITE LINE; sO2 99.6 % (92.0-98.0); tCO2 36.3 mmol/L (24.0-30.0)
[2016-11-04 14:15] LABS: TIDAL VOLUME 450 ml
[2016-11-04 18:04] LABS: HEMATOCRIT 27.8 % (42.0-52.0); HEMOGLOBIN 9.3 gm/dL (14.0-18.0); MCH 29.7 pg (26.0-34.0); MCHC 33.3 g/dL (28.0-37.0); RBC 3.12 mil/uL (4.50-6.00); RDW 16.6 % (10.5-14.5); WBC 10.5 thou/uL (4.0-11.0)
[2016-11-04 18:17] LABS: ALBUMIN 2.3 g/dL (3.4-5.0); MAGNESIUM 2.1 mg/dL (1.8-2.4); POTASSIUM 5.3 mmol/L (3.5-5.1); TOTAL BILIRUBIN 1.2 mg/dL (<0.1-1.0); TOTAL PROTEIN 6.3 g/dL (6.4-8.2)
[2016-11-05 04:54] LABS: ABG SAMPLE TYPE ARTERIAL; BE(vivo) 4.9 mmol/L (-2 to +3); HCO3 30.8 mmol/L (22.0-26.0); LACTATE 2.34 mmol/L (0.5-2.0); O2(CT) 12.5 mL/dL (15.0-23.0); O2Hb 94.8 % (92.0-98.0); PCO2 53.1 mmHg (35.0-45.0); PO2 91.4 mmHg (80.0-100.0); STICK SITE LINE; pH 7.381 (7.360-7.450); sO2 96.7 % (92.0-98.0); tCO2 32.4 mmol/L (24.0-30.0)
[2016-11-05 04:55] LABS: TIDAL VOLUME 450 ml
[2016-11-05 05:11] LABS: HEMATOCRIT 25.7 % (42.0-52.0); HEMOGLOBIN 8.5 gm/dL (14.0-18.0); MCH 29.8 pg (26.0-34.0); MCHC 33.1 g/dL (28.0-37.0); MCV 90.3 fL (80.0-100.0); PLATELET COUNT 150 thou/uL (150-400); RBC 2.84 mil/uL (4.50-6.00); RDW 17.4 % (10.5-14.5); WBC 9.8 thou/uL (4.0-11.0)
[2016-11-05 05:18] LABS: MANUAL DIFF YES
[2016-11-05 05:19] LABS: CALCIUM 8.1 mg/dL (8.5-10.1); CREATININE 2.1 mg/dL (0.7-1.3); TOTAL BILIRUBIN 0.7 mg/dL (<0.1-1.0); TOTAL PROTEIN 6.1 g/dL (6.4-8.2)
[2016-11-05 05:33] LABS: POTASSIUM 4.3 mmol/L (3.5-5.1)
[2016-11-05 08:24] LABS: ABSOLUTE NEUTROPHILS 9.2 thou/uL (1.4-8.2); TOTAL CELL COUNT 100
[2016-11-05 09:45] LABS: ABG SAMPLE TYPE ARTERIAL; BE(vivo) 3.2 mmol/L (-2 to +3); HCO3 31.3 mmol/L (22.0-26.0); LACTATE 1.37 mmol/L (0.5-2.0); O2(CT) 12.3 mL/dL (15.0-23.0); O2Hb 86.3 % (92.0-98.0); PO2 60.9 mmHg (80.0-100.0); sO2 87.2 % (92.0-98.0); tCO2 33.4 mmol/L (24.0-30.0)
[2016-11-05 09:46] LABS: PCO2 68.9 mmHg (35.0-45.0); Pressure Support 6 cm H20; STICK SITE LINE; pH 7.275 (7.360-7.450)
[2016-11-05 19:37] VITALS: BP 108/57
[2016-11-05 20:00] VITALS: BP 112/57
[2016-11-05 21:00] VITALS: BP 125/56
[2016-11-05 22:00] VITALS: BP 122/63
[2016-11-06] VITALS (12 sets, daily range): BP systolic 119–144; BP diastolic 51–68
[2016-11-06 05:09] LABS: ALBUMIN 1.9 g/dL (3.4-5.0); CALCIUM 8.3 mg/dL (8.5-10.1); CREATININE 1.6 mg/dL (0.7-1.3); PHOSPHORUS 3.3 mg/dL (2.5-4.9); POTASSIUM 4.8 mmol/L (3.5-5.1)
[2016-11-06 06:21] LABS: HEMOGLOBIN 8.6 gm/dL (14.0-18.0); MCH 29.3 pg (26.0-34.0); MCHC 31.9 g/dL (28.0-37.0); MCV 91.8 fL (80.0-100.0); RBC 2.94 mil/uL (4.50-6.00); RDW 18.5 % (10.5-14.5); WBC 11.5 thou/uL (4.0-11.0)
[2016-11-07 00:01] VITALS: BP 130/50
[2016-11-07 02:59] VITALS: BP 130/50
[2016-11-07 05:13] LABS: ALBUMIN 1.8 g/dL (3.4-5.0); CALCIUM 8.3 mg/dL (8.5-10.1); CREATININE 1.4 mg/dL (0.7-1.3); PHOSPHORUS 3.2 mg/dL (2.5-4.9); POTASSIUM 4.7 mmol/L (3.5-5.1)
[2016-11-07 08:00] VITALS: BP 126/51
[2016-11-07 16:00] VITALS: BP 123/55
[2016-11-07 17:01] LABS: ABG SAMPLE TYPE ARTERIAL; BE(vivo) 3.8 mmol/L (-2 to +3); HCO3 31.3 mmol/L (22.0-26.0); O2(CT) 10.2 mL/dL (15.0-23.0); O2Hb 74.3 % (92.0-98.0); PCO2 64.7 mmHg (35.0-45.0); PO2 43.3 mmHg (80.0-100.0); Pressure Support 10 cm H20; STICK SITE LINE; pH 7.302 (7.360-7.450); sO2 72.8 % (92.0-98.0); tCO2 33.3 mmol/L (24.0-30.0)
[2016-11-08 00:01] VITALS: BP 105/48
[2016-11-08 05:15] LABS: ABG SAMPLE TYPE ARTERIAL; BE(vivo) 2.1 mmol/L (-2 to +3); HCO3 28.8 mmol/L (22.0-26.0); LACTATE 1.03 mmol/L (0.5-2.0); O2(CT) 11.3 mL/dL (15.0-23.0); O2Hb 91.6 % (92.0-98.0); PCO2 57.5 mmHg (35.0-45.0); PO2 71.8 mmHg (80.0-100.0); sO2 92.8 % (92.0-98.0); tCO2 30.6 mmol/L (24.0-30.0)
[2016-11-08 05:17] LABS: STICK SITE LINE; TIDAL VOLUME 450 ml; pH 7.318 (7.360-7.450)
[2016-11-08 05:47] LABS: HEMATOCRIT 24.7 % (42.0-52.0); HEMOGLOBIN 7.9 gm/dL (14.0-18.0); MCH 29.6 pg (26.0-34.0); MCHC 31.8 g/dL (28.0-37.0); MCV 93.1 fL (80.0-100.0); RBC 2.65 mil/uL (4.50-6.00); RDW 17.7 % (10.5-14.5); WBC 6.9 thou/uL (4.0-11.0)
[2016-11-08 06:01] LABS: ALBUMIN 1.7 g/dL (3.4-5.0); CALCIUM 8.4 mg/dL (8.5-10.1); CREATININE 1.6 mg/dL (0.7-1.3); MAGNESIUM 2.4 mg/dL (1.8-2.4); PHOSPHORUS 4.2 mg/dL (2.5-4.9); POTASSIUM 5.1 mmol/L (3.5-5.1)
[2016-11-08 08:00] VITALS: BP 150/62
[2016-11-08 12:49] VITALS: BP 108/53
[2016-11-09 04:59] LABS: HEMATOCRIT 22.4 % (42.0-52.0); HEMOGLOBIN 7.2 gm/dL (14.0-18.0); MCHC 32.3 g/dL (28.0-37.0); WBC 6.1 thou/uL (4.0-11.0)
[2016-11-09 05:00] LABS: MCH 29.7 pg (26.0-34.0); RBC 2.44 mil/uL (4.50-6.00); RDW 17.8 % (10.5-14.5)
[2016-11-09 05:10] LABS: ALBUMIN 1.6 g/dL (3.4-5.0); CALCIUM 8.6 mg/dL (8.5-10.1); CREATININE 1.6 mg/dL (0.7-1.3); PHOSPHORUS 3.3 mg/dL (2.5-4.9); POTASSIUM 4.5 mmol/L (3.5-5.1)
[2016-11-09 09:22] LABS: ABG SAMPLE TYPE ARTERIAL; BE(vivo) 0.8 mmol/L (-2 to +3); HCO3 27.7 mmol/L (22.0-26.0); O2(CT) 10.8 mL/dL (15.0-23.0); O2Hb 90.4 % (92.0-98.0); PCO2 57.6 mmHg (35.0-45.0); Pressure Support 8 cm H20; STICK SITE LINE; sO2 92.3 % (92.0-98.0); tCO2 29.5 mmol/L (24.0-30.0)
[2016-11-09 11:14] VITALS: BP 108/64; BP 137/43
[2016-11-09 14:27] VITALS: BP 144/81; BP 151/53; BP 159/53
[2016-11-09 18:18] VITALS: BP 149/61
[2016-11-09 23:45] VITALS: BP 127/59
[2016-11-10] VITALS (24 sets, daily range): BP systolic 100–165; BP diastolic 44–108
[2016-11-10 04:26] LABS: HEMATOCRIT 29.7 % (42.0-52.0); MCHC 32.5 g/dL (28.0-37.0); MCV 89.2 fL (80.0-100.0); PLATELET COUNT 242 thou/uL (150-400); RBC 3.33 mil/uL (4.50-6.00); RDW 18.6 % (10.5-14.5); WBC 5.9 thou/uL (4.0-11.0)
[2016-11-10 04:50] LABS: ALBUMIN 1.8 g/dL (3.4-5.0); CALCIUM 8.5 mg/dL (8.5-10.1); CREATININE 1.5 mg/dL (0.7-1.3); MAGNESIUM 2.3 mg/dL (1.8-2.4); POTASSIUM 4.9 mmol/L (3.5-5.1); TOTAL BILIRUBIN 1.1 mg/dL (<0.1-1.0); TOTAL PROTEIN 6.5 g/dL (6.4-8.2)
[2016-11-10 04:52] LABS: HEMOGLOBIN 9.6 gm/dL (14.0-18.0); MANUAL DIFF YES
[2016-11-10 05:26] LABS: ABG SAMPLE TYPE ARTERIAL; BE(vivo) 4.7 mmol/L (-2 to +3); HCO3 33.7 mmol/L (22.0-26.0); LACTATE 1.08 mmol/L (0.5-2.0); O2(CT) 14.6 mL/dL (15.0-23.0); O2Hb 94.7 % (92.0-98.0); PCO2 77.2 mmHg (35.0-45.0); PO2 89.9 mmHg (80.0-100.0); STICK SITE LINE; pH 7.258 (7.360-7.450); sO2 95.2 % (92.0-98.0); tCO2 36.1 mmol/L (24.0-30.0)
[2016-11-10 05:27] LABS: TIDAL VOLUME 450 ml
[2016-11-10 06:00] LABS: ABSOLUTE NEUTROPHILS 5.4 thou/uL (1.4-8.2); ANISOCYTOSIS 2+; MACROCYTES 1+; MICROCYTES 1+; POLYCHROMASIA OCCASIONAL; TOTAL CELL COUNT 100
[2016-11-10 07:13] LABS: ABG SAMPLE TYPE ARTERIAL; BE(vivo) 3.3 mmol/L (-2 to +3); HCO3 30.1 mmol/L (22.0-26.0); LACTATE 1.14 mmol/L (0.5-2.0); O2(CT) 14.6 mL/dL (15.0-23.0); O2Hb 97.2 % (92.0-98.0); PCO2 57.6 mmHg (35.0-45.0); PO2 118.5 mmHg (80.0-100.0); pH 7.336 (7.360-7.450); tCO2 31.9 mmol/L (24.0-30.0)
[2016-11-10 07:14] LABS: STICK SITE LINE; TIDAL VOLUME 450 ml
[2016-11-10 10:14] LABS: ABG SAMPLE TYPE ARTERIAL; LACTATE 1.17 mmol/L (0.5-2.0); O2(CT) 13.2 mL/dL (15.0-23.0); O2Hb 85.2 % (92.0-98.0); PCO2 68.9 mmHg (35.0-45.0); PO2 51.9 mmHg (80.0-100.0); pH 7.311 (7.360-7.450); sO2 82.2 % (92.0-98.0); tCO2 36.1 mmol/L (24.0-30.0)
[2016-11-10 10:15] LABS: Pressure Support 8 cm H20; STICK SITE LINE
[2016-11-11] VITALS (21 sets, daily range): BP systolic 98–146; BP diastolic 52–101
[2016-11-11 04:37] LABS: HEMATOCRIT 30.8 % (42.0-52.0); MCHC 32.5 g/dL (28.0-37.0); MCV 89.3 fL (80.0-100.0); RBC 3.44 mil/uL (4.50-6.00); RDW 17.8 % (10.5-14.5); WBC 10.5 thou/uL (4.0-11.0)
[2016-11-11 04:58] LABS: CALCIUM 8.9 mg/dL (8.5-10.1); CREATININE 1.6 mg/dL (0.7-1.3); PHOSPHORUS 2.1 mg/dL (2.5-4.9); POTASSIUM 4.5 mmol/L (3.5-5.1)
[2016-11-11 09:19] LABS: ABG SAMPLE TYPE ARTERIAL; BE(vivo) 8.7 mmol/L (-2 to +3); HCO3 36.3 mmol/L (22.0-26.0); LACTATE 1.45 mmol/L (0.5-2.0); O2(CT) 14.3 mL/dL (15.0-23.0); O2Hb 88.6 % (92.0-98.0); PO2 58.7 mmHg (80.0-100.0); pH 7.357 (7.360-7.450); sO2 88.4 % (92.0-98.0); tCO2 38.3 mmol/L (24.0-30.0)
[2016-11-11 09:20] LABS: PCO2 66.1 mmHg (35.0-45.0); Pressure Support 8 cm H20; STICK SITE R.RADIAL
[2016-11-12] VITALS (14 sets, daily range): BP systolic 131–159; BP diastolic 50–105
[2016-11-12 04:05] LABS: HEMATOCRIT 29.2 % (42.0-52.0); HEMOGLOBIN 9.4 gm/dL (14.0-18.0); MCH 28.5 pg (26.0-34.0); MCHC 32.1 g/dL (28.0-37.0); MCV 88.7 fL (80.0-100.0); RBC 3.29 mil/uL (4.50-6.00); RDW 17.7 % (10.5-14.5)
[2016-11-12 04:15] LABS: ALBUMIN 1.9 g/dL (3.4-5.0); CALCIUM 8.6 mg/dL (8.5-10.1); CREATININE 1.4 mg/dL (0.7-1.3); PHOSPHORUS 2.2 mg/dL (2.5-4.9); POTASSIUM 3.7 mmol/L (3.5-5.1)
[2016-11-12 05:08] LABS: ABG SAMPLE TYPE ARTERIAL; BE(vivo) 9.7 mmol/L (-2 to +3); HCO3 35.2 mmol/L (22.0-26.0); LACTATE 1.05 mmol/L (0.5-2.0); O2(CT) 13.4 mL/dL (15.0-23.0); O2Hb 88.8 % (92.0-98.0); PCO2 52.3 mmHg (35.0-45.0); PO2 56.7 mmHg (80.0-100.0); pH 7.446 (7.360-7.450); sO2 90.2 % (92.0-98.0); tCO2 36.8 mmol/L (24.0-30.0)
[2016-11-12 05:09] LABS: STICK SITE R.RADIAL
[2016-11-13 04:21] VITALS: BP 148/66
[2016-11-13 05:36] LABS: HEMATOCRIT 33.5 % (42.0-52.0); HEMOGLOBIN 10.7 gm/dL (14.0-18.0); MCH 28.5 pg (26.0-34.0); MCV 89.1 fL (80.0-100.0); RBC 3.76 mil/uL (4.50-6.00); RDW 17.6 % (10.5-14.5); WBC 14.2 thou/uL (4.0-11.0)
[2016-11-13 05:51] LABS: ALBUMIN 2.3 g/dL (3.4-5.0); CALCIUM 8.5 mg/dL (8.5-10.1); CREATININE 1.4 mg/dL (0.7-1.3); PHOSPHORUS 3.5 mg/dL (2.5-4.9)
[2016-11-13 07:25] VITALS: BP 173/76
[2016-11-13 11:25] VITALS: BP 126/51
[2016-11-13 15:15] VITALS: BP 140/61
[2016-11-13 19:51] VITALS: BP 147/61
[2016-11-14 03:58] VITALS: BP 136/64
[2016-11-14 04:37] LABS: HEMATOCRIT 29.4 % (42.0-52.0); HEMOGLOBIN 9.5 gm/dL (14.0-18.0); MCH 28.6 pg (26.0-34.0); MCHC 32.3 g/dL (28.0-37.0); MCV 88.4 fL (80.0-100.0); RBC 3.33 mil/uL (4.50-6.00); RDW 17.5 % (10.5-14.5); WBC 14.6 thou/uL (4.0-11.0)
[2016-11-14 04:50] LABS: ALBUMIN 1.9 g/dL (3.4-5.0); CALCIUM 7.9 mg/dL (8.5-10.1); CREATININE 1.2 mg/dL (0.7-1.3); PHOSPHORUS 2.7 mg/dL (2.5-4.9); POTASSIUM 3.9 mmol/L (3.5-5.1)
[2016-11-14 07:30] VITALS: BP 147/63
[2016-11-14 11:30] VITALS: BP 143/50; BP 161/62
[2016-11-14 15:40] VITALS: BP 129/55
[2016-11-14 19:36] VITALS: BP 155/62
[2016-11-15 04:01] VITALS: BP 138/54
[2016-11-15 04:49] LABS: CALCIUM 8.1 mg/dL (8.5-10.1); CREATININE 1.2 mg/dL (0.7-1.3); PHOSPHORUS 3.1 mg/dL (2.5-4.9); POTASSIUM 3.9 mmol/L (3.5-5.1)
[2016-11-15 08:21] VITALS: BP 135/62
[2016-11-15 11:05] VITALS: BP 130/59
[2016-11-15] MEDS ORDERED: AMBIEN 10 MG TA10 MG PO (12:42)
[2016-11-15] MEDS ORDERED: PREDNISONE 20 M20 M1 PO (12:42)
[2016-11-15] MEDS ORDERED: MIRALAX17 GM PO (12:42)
[2016-11-15] MEDS ORDERED: TORSEMIDE5 MG PO (12:42)
[2016-11-15] MEDS ORDERED: LANTUS100 UNIT/M SUBQ (12:44)
[2016-11-15] MEDS ORDERED: HUMALOG100 UNIT/1 SUBQ ×2 (12:44)
[2016-11-15 16:27] VITALS: BP 119/52
== END 2016-11-15 19:03 | DRG 163 ==
LOC: 4S 15:52 → ICU 15:52 → 4S 11-02 09:21 → ICU 11-04 13:45 → 2N 11-12 16:46
PROVIDERS: Family Medicine; Hospitalist; Internal Medicine Hematology & Oncology; Internal Medicine Nephrology; Internal Medicine Pulmonary Disease; Nurse Practitioner; Nurse Practitioner Acute Care; Physician Assistant; Thoracic Surgery (Cardiothoracic Vascular Surgery)
PROC: 5A1955Z Respiratory Ventilation, Greater than 96 Consecutive Hours (ICD-10-PCS; principal; 2016-11-04)
PROC: 0BBJ4ZX Excision of Left Lower Lung Lobe, Percutaneous Endoscopic Approach, Diagnostic (ICD-10-PCS; 2016-11-04)
PROC: 0BDP0ZZ Extraction of Left Pleura, Open Approach (ICD-10-PCS; 2016-11-04)
PROC: 02HV33Z Insertion of Infusion Device into Superior Vena Cava, Percutaneous Approach (ICD-10-PCS; 2016-11-09)
PROC: B548ZZA Ultrasonography of Superior Vena Cava, Guidance (ICD-10-PCS; 2016-11-09)
PROC: 5A09357 Assistance with Respiratory Ventilation, Less than 24 Consecutive Hours, Continuous Positive Airway Pressure (ICD-10-PCS; 2016-11-15)
DX: J96.21 Acute and chronic respiratory failure with hypoxia (principal); I50.33 Acute on chronic diastolic (congestive) heart failure; I13.0 Hypertensive heart and chronic kidney disease with heart failure and stage 1 through stage 4 chronic kidney disease, or unspecified chronic kidney disease; N17.9 Acute kidney failure, unspecified; E44.0 Moderate protein-calorie malnutrition; E87.0 Hyperosmolality and hypernatremia; J96.22 Acute and chronic respiratory failure with hypercapnia; N18.3 Chronic kidney disease, stage 3 (moderate); I25.10 Atherosclerotic heart disease of native coronary artery without angina pectoris; I35.0 Nonrheumatic aortic (valve) stenosis; E78.00 Pure hypercholesterolemia, unspecified; R59.0 Localized enlarged lymph nodes; J84.89 Other specified interstitial pulmonary diseases; G47.33 Obstructive sleep apnea (adult) (pediatric); E11.22 Type 2 diabetes mellitus with diabetic chronic kidney disease; D63.8 Anemia in other chronic diseases classified elsewhere; E11.51 Type 2 diabetes mellitus with diabetic peripheral angiopathy without gangrene; E11.65 Type 2 diabetes mellitus with hyperglycemia; E83.39 Other disorders of phosphorus metabolism; Z95.1 Presence of aortocoronary bypass graft; Z95.5 Presence of coronary angioplasty implant and graft; Z79.899 Other long term (current) drug therapy; Z79.82 Long term (current) use of aspirin; Z68.34 Body mass index [BMI] 34.0-34.9, adult
CPT/HCPCS: 10078; 10081; 10100; 27000; 47405; 50011; 50101; 50386; 50403; 50417; 50455; 50497; 50662; 51301; 51467; 52265; 54118; 56524; 56525; 56526; 56527; 56531; 56805; 62110; 62900; 65105; 83006; 85076

== ENCOUNTER 2016-11-15 12:45 | Inpatient (IN) | payer OTHER ==
[~2016-11-15] VITALS: Ht 170.2 cm; Wt 98.3 kg
--- NOTE | ~2016-11-15 | H ---
[facility] [place] [address] HISTORY AND PHYSICAL Name: LAVERN LOWRY Room #: 510-P [facility] IN M.R.#: [id number] Admission: 11/15/16 Attend Phys: Max Macdonald MD Discharge: 11/25/16 Date of : 50 Report #: [id number] THIS REPORT FOR: //name// CC: Max HU DATE OF SERVICE: 11/16/2016 HISTORY OF PRESENT ILLNESS: The patient is a 66-year-old white male, recently hospitalized, 09/09/2016, with a loculated pleural effusion and underwent colonoscopy with video-assisted thoracoscopy and a right thoracotomy with decortication, 09/15/2016. He was treated for cmlke-ay-rimjepq diastolic heart failure. He was discharged home. He was on a couple of liters nasal prong O2. Initially, he was doing well, but then he began having worsening shortness of breath. He was readmitted to the acute hospital with mxhyd-zf-nubnybf congestive heart failure. He had respiratory failure. Cardiology and pulmonary were closely involved and he warranted mechanical ventilation in the intensive care unit. He was able to be extubated on 11/11/2016. Nephrology was involved as well as hematology with his anemia. He does have anemia of chronic disease. He was noted to have significant weakness, had been on high doses of methylprednisolone as well as electrolyte abnormalities, chronic kidney disease and anemia. He was noted to have significant generalized weakness and diagnostically, he was felt to meet criteria for critical illness myopathy. He has now been admitted for acute in-hospital inpatient rehabilitation. PAST MEDICAL HISTORY: Includes coronary artery bypass grafting times 1, fem-pop bypass of the right lower extremity and right carotid endarterectomy. MEDICATIONS: Please see the full medication listing. SOCIAL HISTORY: He lives in [place], [place]. 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 Lives in a house with a ramp. He was on nasal prong O2 a couple liters premorbidly. His daughter lives in [place] as well and she assists him. He may be able to stay with the daughter as well. REVIEW OF SYSTEMS: No current complaints of chest pain, shortness of breath or abdominal discomfort. Some generalized shortness of breath with limited activities. Complains of generalized weakness, upper and lower body. No focal extremity pain complaints. PHYSICAL EXAMINATION: GENERAL: A 66-year-old white male, in no obvious distress. He is alert and oriented. VITAL SIGNS: Last recorded temperature 97.7, pulse 54, respirations 20 and blood pressure 118/54. He is alert, pleasant. HEENT: Appear to be benign. [address] [address] HISTORY AND PHYSICAL Name: LAVERN LOWRY Room #: 510-P [facility] IN M.R.#: [id number] Admission: 11/15/16 Attend Phys: Max Macdonald MD Discharge: 11/25/16 Date of : 50 Report #: [id number] NEUROLOGIC: Cranial nerves are grossly intact. Facies are symmetric. CHEST: Some diffuse decreased breath sounds throughout. Dressing in place over a prior surgical site. CARDIAC EXAMINATION: Sounded regular rate and rhythm. ABDOMEN: Obese. Bowel sounds positive. Nontender. GENITOURINARY AND RECTAL EXAMINATION: Deferred. EXTREMITIES: He has functional range of motion of both upper extremities with strength to grade 4-/5. DTRs are trace to 1. Lower extremities, no focal calf swelling. Functional range of motion with strength to grade 4-/5. DTRs are trace to 1. He is needing assistance with basic functional mobility skills, standby assistance with basic transfers. He is ambulating short distances. He is needing assistance with basic dressing activities. He is continuing on a nectar-thickened liquid diet per speech therapy. ASSESSMENT: 1. Critical illness myopathy. He had prolonged mechanical ventilation, ICU stay, IV methylprednisolone, electrolyte abnormalities and metabolic abnormalities. 2. Medical complexity with generalized debilitation. 3. Respiratory failure, acute on chronic. 4. Fpctp-pw-qttsxiy congestive heart failure. 5. Mediastinal adenopathy, status post video-assisted thoracoscopy with decortication and biopsy. 6. Moderate aortic stenosis. 7. Coronary artery disease with history of coronary artery bypass grafting and coronary angioplasty. 8. Hypertension. 9. Hypercholesterolemia. 10. Peripheral vascular disease with history of fem-pop bypass and right carotid endarterectomy. 11. Cedks-em-lsqcbjo renal insufficiency. 12. Diabetes mellitus type 2. 13. Exogenous obesity. PLAN: The patient is admitted for acute in-hospital inpatient rehabilitation. From a post-admission physician evaluation perspective, there are no relevant changes since the pre-admission screening. Please see the above review of prior and current medical and functional conditions and comorbidities. Please see the patient's prior and current functional status. As far as risk of complications, he does have multiple medical comorbidities as noted above. Initial plan of care involves the interdisciplinary acute inpatient rehabilitation program with a goal of maximizing his functional independence so that he can hopefully return back to his prior living situation. The goal would be either to return to the prior living situation or possibly to move in with his daughter. Prognosis is reasonably good with estimated length of stay probably fairly short as he is [facility] [address] [place] [address] HISTORY AND PHYSICAL Name: LAVERN LOWRY Room #: 510-P [facility] IN M.R.#: [id number] Admission: 11/15/16 Attend Phys: Max Macdonald MD Discharge: 11/25/16 Date of : 50 Report #: [id number] progressing. Potential barriers would include his multiple medical comorbidities and decreased functional status. <ELECTRONICALLY SIGNED> By: Max Macdonald MD 11/29/16 1518 0851 1023 Max Macdonald MD /nt
--- NOTE | ~2016-11-15 | PLAN ---
[facility] [place] [address] REHAB UNIT PLAN OF CARE Name: LAVERN LOWRY Room #: 510-P DIS IN M.R.#: [id number] Admission: 11/15/16 Attend Phys: Max Macdonald MD Discharge: 11/25/16 Date of : 50 Report #: [id number] THIS REPORT FOR: //name// CC: Max CORTEZ The patient is seen back today in followup. He is in no distress. Last recorded temperature 36.9, pulse 63, respirations 12, and blood pressure 122/49. The patient is alert and pleasant. HEENT Appeared to be benign. Cranial nerves are grossly intact. Facies are symmetric. No focal calf swelling. Transfers are contact guard. Gait contact guard 250 feet without a device. In occupational therapy, lower body dressing is min assist. Upper body dressing is setup. In speech therapy, he has mild comprehensive deficits, mild expressive deficits. He does have evidence of dysphagia and is on a mechanical soft nectar thickened liquid diet. As far as pulmonary, he is currently on 3.5 liters. ASSESSMENT: 1. Critical illness myopathy. 2. Medical complexity with generalized debilitation. 3. Respiratory failure, acute on chronic. 4. Acute on chronic congestive heart failure. 5. Mediastinal adenopathy status post video-assisted thoracoscopy with decortication and biopsy. 6. Moderate aortic stenosis. 7. Coronary artery disease with history of coronary artery bypass grafting and coronary angioplasty. 8. Hypertension. 9. Hypercholesterolemia. 10. Peripheral vascular disease with history of fem-pop bypass and right carotid endarterectomy. 11. Acute on chronic renal insufficiency. 12. Diabetes mellitus type 2. PLAN: The overall plan of care is based on the preadmission screen, post-admission physician evaluation and information garnered from therapy assessments. 1. Estimated length of stay should be fairly short. He indicated he premorbidly was on nasal prong O2 at night. 2. Medical prognosis is reasonably good. 3. Anticipated interventions includes the interdisciplinary acute inpatient rehabilitation program. 4. Anticipated functional outcomes would be for the patient to become modified independent with transfers, mobility and ADLs and to improve as far as his swallowing and cognition, so that he can return back to the home setting. 5. Discharge destination would be back to the home setting. He may be able to stay with his daughter post-discharge. 6. Expected therapy by discipline includes PT and OT and speech 1 [place] [address] REHAB UNIT PLAN OF CARE Name: LAVERN LOWRY Room #: 510-P DIS IN M.R.#: [id number] Admission: 11/15/16 Attend Phys: Max Macdonald MD Discharge: 11/25/16 Date of : 50 Report #: [id number] each five days a week throughout the duration of the acute inpatient rehabilitation stay. <ELECTRONICALLY SIGNED> By: Max Macdonald MD 11/29/16 1523 0834 1202 Max Macdonald MD /inge
--- NOTE | ~2016-11-15 | HC ---
[facility] [place] [address] CONSULTATION Name: LAVERN LOWRY Room #: 510-P [facility] IN M.R.#: [id number] Admission: 11/15/16 Attend Phys: Max Macdonald MD Discharge: 11/25/16 Date of : 50 Report #: [id number] THIS REPORT FOR: //name// CC: Max HU DATE OF SERVICE: 11/19/2016 neurobehavioral status exam. ATTENDING PHYSICIAN: Max Macdonald M.D. OPERATING TABLE ASSEMBLER: Oscar Watts, PhD. CLINICAL PRESENTATION: The patient is a 66-year-old male admitted to the rehabilitation unit at [facility] for evaluation and treatment of a pleural effusion. He underwent a colonoscopy with a video-assisted thoracoscopy with a right thoracotomy and decortication on 09/15/2016. He was initially treated for fsvoj-xj-kpxmcxk diastolic heart failure. He was discharged home on 2 liters of oxygen and doing well before an exacerbation of his congestive heart failure leading to his shortness of breath that required hospitalization. He required mechanical ventilation and was monitored in intensive care until 11/11/2016. His assessment on admission to rehab was critical illness myopathy, medical complexity with generalized debilitation, respiratory failure qalav-at-zrceywd, tishl-tx-ymkbswx congestive heart failure, mediastinal adenopathy status post video-assisted thoracoscopy with a decortication and biopsy, moderate aortic stenosis, coronary artery disease with history of coronary artery bypass grafting and coronary angioplasty, hypertension, hypercholesterolemia, peripheral vascular disease with history of fem-pop bypass and right carotid endarterectomy, bxznc-as-vwbsfkz renal insufficiency, diabetes mellitus type 2 and exogenous obesity. A complete description of his medical condition and history can be found in his medical record. Neuropsychological consultation was requested to provide assistance in the assessment of cognitive and emotional status and to provide recommendations and services. Prior to this most recent admission, the patient was living independently in his own home. He has had assistance from his daughter and son in law, who live nearby. The patient is from his second marriage. He was for 38 years. She in 06/2015. The patient is a high school graduate. He had been employed in selling automotive parts prior to this most recent deterioration in his medical condition. The patient has 4 children. TECHNIQUES UTILIZED: Clinical interview, review of medical records, staff [address] [address] CONSULTATION Name: LAVERN LOWRY Room #: 510-P [facility] IN M.R.#: [id number] Admission: 11/15/16 Attend Phys: Max Macdonald MD Discharge: 11/25/16 Date of : 50 Report #: [id number] consultation and behavioral observation, mini mental status exam 2 standard version, family interview - daughter and son-in-law, clock drawing and a calibrated ideational fluency assessment (letter and category). EXAMINATION FINDINGS: The patient was alert and cooperative with the assessment. He accurately described events surrounding his admission. It was a complicated initial hospitalization, but he was able to identify the barton elements to problems requiring treatment. He does not present with aphasia. There is no report of auditory or visual hallucinations. His thoughts are logical and goal oriented. He reports his symptoms to include sleep disturbance, tiredness and fatigue and difficulty with breathing. Subtle difficulty with memory is described. There are no reported problems with appetite or word finding. His performance on the MMSE 2 brief version is within normal limits with a raw score of 14/16 and a T score of 43. Performance on the standard version of the MMSE 2 is within normal limits with a raw score of 29/30 and a T score of 57. Letter fluency is in the fzoe-cn-coisaidx range of impairment with a raw score of 11 and a T score of 32. Category fluency is within normal limits with a raw score of 38 and a T of 47. Overall, verbal fluency is in the pixb-aw-gyjggsfj range of impairment with a T score of 56. Impairment in letter and total verbal fluency often suggests a higher level executive dysfunction. Difficulty in generative speech that requires active organization of information. While his performance in a brief mental status exam is within normal limits, he did have difficulty with immediate recall remembering only 1 of 3 items. Suggested is a deficit in immediate recall that would require increased assessment. DIAGNOSTIC IMPRESSION: Neurocognitive disorder, due to medical etiology, extent to be determined, likely in the mild range. RECOMMENDATIONS: The patient would benefit from a more thorough neuropsych assessment upon discharge to clarify the severity of cognitive deficits. At this time, he should have increased assistance from his daughter, both to provide help with the management of medication as well as nutrition. Driving should be delayed following a more thorough assessment of neurocognitive functioning. His mood is positive and euthymic. However, he has diminished insight into the severity of cognitive deficits. At discharge, continued help with planning and problem solving will be necessary. [facility] [address] [place] [address] CONSULTATION Name: LAVERN LOWRY Room #: 510-P DIS IN M.R.#: [id number] Admission: 11/15/16 Attend Phys: Max Macdonald MD Discharge: 11/25/16 Date of : 50 Report #: [id number] Thank you very much for allowing me to provide the consultation on this patient. <ELECTRONICALLY SIGNED> By: Oscar Watts, PhD 11/26/16 1543 1540 0037 Oscar Watts, PhD /nt
[~2016-11-15 12:45] MED LIST changes: +AMBIEN 10 MG TA10 MG PO; +HUMALOG100 UNIT/1 SUBQ; +LANTUS100 UNIT/M SUBQ; +MIRALAX17 GM PO; +PREDNISONE 20 M20 M1 PO; +TORSEMIDE5 MG PO
[2016-11-15 18:55] VITALS: BP 141/68
[2016-11-15 21:00] VITALS: BP 134/55
[2016-11-16 05:08] LABS: HEMOGLOBIN 9.6 gm/dL (14.0-18.0); MCH 28.7 pg (26.0-34.0); MCHC 32.1 g/dL (28.0-37.0); MCV 89.6 fL (80.0-100.0); RBC 3.35 mil/uL (4.50-6.00); RDW 17.5 % (10.5-14.5); WBC 18.1 thou/uL (4.0-11.0)
[2016-11-16 05:28] LABS: CALCIUM 8.2 mg/dL (8.5-10.1); CREATININE 1.5 mg/dL (0.7-1.3); PHOSPHORUS 3.6 mg/dL (2.5-4.9); POTASSIUM 4.3 mmol/L (3.5-5.1)
[2016-11-16 05:32] VITALS: BP 118/54
[2016-11-16 07:32] VITALS: BP 138/63
[2016-11-16 08:00] VITALS: BP 125/65
[2016-11-16 11:30] VITALS: BP 135/65
[2016-11-16 15:36] VITALS: BP 135/55
[2016-11-16 20:00] VITALS: BP 146/63
[2016-11-17 06:03] VITALS: BP 123/51
[2016-11-17 12:12] VITALS: BP 150/54
[2016-11-17 16:00] VITALS: BP 144/50
[2016-11-17 21:00] VITALS: BP 148/65
[2016-11-18 03:20] VITALS: BP 122/49
[2016-11-18 06:19] LABS: HEMATOCRIT 28.8 % (42.0-52.0); HEMOGLOBIN 9.4 gm/dL (14.0-18.0); MCH 29.3 pg (26.0-34.0); MCHC 32.5 g/dL (28.0-37.0); MCV 90.3 fL (80.0-100.0); RBC 3.19 mil/uL (4.50-6.00); RDW 18.8 % (10.5-14.5); WBC 18.2 thou/uL (4.0-11.0)
[2016-11-18 06:31] LABS: ALBUMIN 1.9 g/dL (3.4-5.0); CALCIUM 7.9 mg/dL (8.5-10.1); CREATININE 1.4 mg/dL (0.7-1.3); PHOSPHORUS 3.1 mg/dL (2.5-4.9); POTASSIUM 4.8 mmol/L (3.5-5.1)
[2016-11-18 15:52] VITALS: BP 134/53
[2016-11-18 21:08] VITALS: BP 138/58
[2016-11-19 05:34] VITALS: BP 137/57
[2016-11-19 05:56] LABS: ALBUMIN 2.2 g/dL (3.4-5.0); CALCIUM 7.6 mg/dL (8.5-10.1); CREATININE 1.3 mg/dL (0.7-1.3); PHOSPHORUS 3.2 mg/dL (2.5-4.9)
[2016-11-19 08:00] VITALS: BP 154/59
[2016-11-19 16:00] VITALS: BP 147/58
[2016-11-19 21:02] VITALS: BP 141/48; BP 141/58
[2016-11-20 04:30] VITALS: BP 155/56
[2016-11-20 08:53] VITALS: BP 137/64
[2016-11-20 16:15] VITALS: BP 147/62
[2016-11-20 20:40] VITALS: BP 147/65
[2016-11-21 03:51] VITALS: BP 151/60
[2016-11-21 04:09] LABS: HEMATOCRIT 34.6 % (42.0-52.0); HEMOGLOBIN 10.9 gm/dL (14.0-18.0); MCH 28.8 pg (26.0-34.0); MCHC 31.5 g/dL (28.0-37.0); MCV 91.6 fL (80.0-100.0); RBC 3.78 mil/uL (4.50-6.00); RDW 22.4 % (10.5-14.5); WBC 17.7 thou/uL (4.0-11.0)
[2016-11-21 04:17] LABS: ALBUMIN 2.3 g/dL (3.4-5.0); CALCIUM 8.1 mg/dL (8.5-10.1); CREATININE 1.3 mg/dL (0.7-1.3); PHOSPHORUS 3.1 mg/dL (2.5-4.9); POTASSIUM 4.7 mmol/L (3.5-5.1)
[2016-11-21 16:00] VITALS: BP 117/57
[2016-11-21 19:55] VITALS: BP 158/73
[2016-11-22 02:55] VITALS: BP 134/56
[2016-11-22 06:30] VITALS: BP 132/64
[2016-11-22 12:07] VITALS: BP 128/60
[2016-11-22 15:37] VITALS: BP 126/62
[2016-11-22 20:33] VITALS: BP 127/46
[2016-11-23 04:21] VITALS: BP 137/68
[2016-11-23 07:10] LABS: HEMATOCRIT 36.8 % (42.0-52.0); HEMOGLOBIN 11.8 gm/dL (14.0-18.0); MCH 29.6 pg (26.0-34.0); MCHC 32.2 g/dL (28.0-37.0); MCV 91.9 fL (80.0-100.0); RDW 23.7 % (10.5-14.5); WBC 14.9 thou/uL (4.0-11.0)
[2016-11-23 07:21] LABS: CALCIUM 7.8 mg/dL (8.5-10.1); CREATININE 1.4 mg/dL (0.7-1.3); POTASSIUM 4.6 mmol/L (3.5-5.1)
[2016-11-23 09:35] VITALS: BP 154/65
[2016-11-23 16:06] VITALS: BP 128/61
[2016-11-24 05:26] VITALS: BP 168/70
[2016-11-24 06:35] LABS: ALBUMIN 2.3 g/dL (3.4-5.0); CALCIUM 7.7 mg/dL (8.5-10.1); CREATININE 1.4 mg/dL (0.7-1.3); PHOSPHORUS 4.3 mg/dL (2.5-4.9); POTASSIUM 4.4 mmol/L (3.5-5.1)
[2016-11-24] MEDS ORDERED: LOPRESSOR50 PO (11:25)
[2016-11-24] MEDS ORDERED: PAIN & FEVER325 MG PO (11:25)
[2016-11-24] MEDS ORDERED: DUONEB 2.5-0.5 M3 ML INH (11:25)
[2016-11-24] MEDS ORDERED: MIRALAX17 GM PO (11:25)
[2016-11-24] MEDS ORDERED: NEURONTIN 300300 M1 PO (11:25)
[2016-11-24] MEDS ORDERED: AMLODIPINE BESY10 MG PO (11:25)
[2016-11-24] MEDS ORDERED: LANTUS100 UNIT/M SUBQ (11:25)
[2016-11-24] MEDS ORDERED: FLONASE 0.05%50 MCG NASAL (11:25)
[2016-11-24] MEDS ORDERED: HUMALOG100 UNIT/1 SUBQ (11:25)
[2016-11-24] MEDS ORDERED: PEPCID20 MG PO (11:25)
[2016-11-24] MEDS ORDERED: ALDACTONE25 MG PO (11:30)
[2016-11-24 16:00] VITALS: BP 124/45
[2016-11-24 16:04] VITALS: BP 168/70
[2016-11-24 21:40] VITALS: BP 130/54
[2016-11-25 06:07] LABS: ALBUMIN 2.2 g/dL (3.4-5.0); CALCIUM 7.9 mg/dL (8.5-10.1); CREATININE 1.4 mg/dL (0.7-1.3); PHOSPHORUS 3.4 mg/dL (2.5-4.9); POTASSIUM 4.8 mmol/L (3.5-5.1)
[2016-11-25 06:33] VITALS: BP 144/66
[2016-11-25] MEDS ORDERED: ALDACTONE25 MG PO (10:20)
[2016-11-25] MEDS ORDERED: LASIX 40 MG TAB40 M2 PO (10:21)
[2016-11-25] MEDS ORDERED: PREDNISONE 10 M10 MG PO (11:22)
[2016-11-25] MEDS ORDERED: NOVOLOG MI100 UNIT/M SC (11:51)
[2016-11-25 15:25] VITALS: BP 168/70
[2016-11-25 16:13] VITALS: BP 136/61
== END 2016-11-25 20:35 | disposition home health service (06) | DRG 91 ==
PROVIDERS: Hospitalist; Internal Medicine Hematology & Oncology; Internal Medicine Pulmonary Disease; Physical Medicine & Rehabilitation
DX: G72.81 Critical illness myopathy (principal); I50.33 Acute on chronic diastolic (congestive) heart failure; J96.21 Acute and chronic respiratory failure with hypoxia; J96.22 Acute and chronic respiratory failure with hypercapnia; N17.9 Acute kidney failure, unspecified; I13.0 Hypertensive heart and chronic kidney disease with heart failure and stage 1 through stage 4 chronic kidney disease, or unspecified chronic kidney disease; E87.0 Hyperosmolality and hypernatremia; E44.0 Moderate protein-calorie malnutrition; R53.81 Other malaise; I35.0 Nonrheumatic aortic (valve) stenosis; I25.10 Atherosclerotic heart disease of native coronary artery without angina pectoris; E78.00 Pure hypercholesterolemia, unspecified; N18.9 Chronic kidney disease, unspecified; E11.22 Type 2 diabetes mellitus with diabetic chronic kidney disease; G31.84 Mild cognitive impairment of uncertain or unknown etiology; R59.0 Localized enlarged lymph nodes; E66.09 Other obesity due to excess calories; D64.9 Anemia, unspecified; K12.1 Other forms of stomatitis; E11.51 Type 2 diabetes mellitus with diabetic peripheral angiopathy without gangrene; G47.33 Obstructive sleep apnea (adult) (pediatric); K05.10 Chronic gingivitis, plaque induced; D72.829 Elevated white blood cell count, unspecified; K59.00 Constipation, unspecified; Z95.5 Presence of coronary angioplasty implant and graft; Z68.33 Body mass index [BMI] 33.0-33.9, adult; Z95.1 Presence of aortocoronary bypass graft
CPT/HCPCS: 10112

== ENCOUNTER 2016-12-01 11:19 | Inpatient (IN) | payer OTHER ==
[~2016-12-01] VITALS: Ht 170.2 cm; Wt 97.6 kg
--- NOTE | ~2016-12-01 | HC ---
[facility] [place] [address] CONSULTATION Name: LAVERN LOWRY Room #: 306-P ADM IN M.R.#: [id number] Admission: 12/01/16 Attend Phys: Levi Mcclendon MD Discharge: Date of : 50 Report #: [id number] THIS REPORT FOR: //name// CC: Levi HU DATE OF SERVICE: 12/02/2016 INFECTIOUS DISEASE CONSULTATION DATE OF ADMISSION: 12/01/2016 DATE OF CONSULTATION: 12/02/2016 ATTENDING PHYSICIAN: Dr. Levi Mcclendon. CONSULTING PHYSICIAN: Dr. Tu Iglesias. REASON FOR EVALUATION: Left-sided thoracotomy wound dehiscence. HISTORY OF PRESENT ILLNESS: Chart reviewed, patient examined. This is a 66-year-old white male with fairly extensive medical history, does have known diabetes mellitus complicated by vasculopathy, has known coronary artery disease, has cardiomyopathy and hypertension who was admitted in transfer was found to have wound dehiscence of note, August 2016 and markedly a pleural effusion, possible empyema, underwent thoracoscopy, did have a biopsy as well, which was otherwise nondiagnostic. Did undergo decortication later in the month as well. He had experienced some increasing dyspnea. He noted in spite of fairly good appetite has lost up to 30 pounds as well. He is seen postop. He underwent operative debridement of the site. He then has bilateral wound VACs in place. He has been empirically started on vancomycin as well as cefepime. He is not encephalopathic. Denies significant amount of pain at this point. ALLERGIES: Listed to AVYAWIA. CURRENT MEDICATIONS: Include prednisone, famotidine, hydrocodone, fentanyl, insulin, nicardipine, ondansetron, losartan, aspirin, spironolactone, amlodipine, vancomycin, gabapentin, furosemide, metoprolol, cefepime, p.r.n. analgesics, antiemetics, zolpidem. PAST MEDICAL HISTORY: Diabetes mellitus complicated by vasculopathy included peripheral vascular disease, coronary artery disease, carotid disease, hypertension, and hypothyroidism. SOCIAL HISTORY: Former smoker. No ethanol. [address] [address] CONSULTATION Name: LAVERN LOWRY Room #: 306-P [facility] IN M.R.#: [id number] Admission: 12/01/16 Attend Phys: Levi Mcclendon MD Discharge: Date of : 50 Report #: [id number] FAMILY HISTORY: Noncontributory. REVIEW OF SYSTEMS: As above. PHYSICAL EXAMINATION: GENERAL: Pleasant, alert, cooperative, in mild distress, appears somewhat chronically ill, undernourished. He is not encephalopathic. VITAL SIGNS: Temperature 97.8, pulse 50, respirations 20 and blood pressure 130/63. SKIN: Warm, dry, no rashes. HEENT: Otherwise unremarkable, nasal cannula oxygen in place. NECK: Supple. LUNGS: Diminished breath sounds. HEART: Regular. Borderline bradycardic, I do not appreciate a murmur. ABDOMEN: Soft, nontender, nondistended. EXTREMITIES: No cyanosis. GENITOURINARY: Deferred. RECTAL: Deferred. LABORATORY DATA: Urinalysis unremarkable. Operative cultures pending. Did have few gram-positive cocci, many PMN. Electrolytes: Sodium 138, potassium 4.2, chloride 101, bicarbonate is 34, BUN and creatinine 65 and 1.4. LFTs unremarkable. Albumin of 25, total protein 5.5. Estimated GFR of 51. Chest x-ray ____ thickening lower hemithoraces. CBC: White count of 11.3, H and H 12.7 and 38.9, platelets of 128. ASSESSMENT AND PLAN: Post thoracotomy wound dehiscence suspected complicated infection does have gram-positive cocci on Gram stain. We will continue broad-spectrum antimicrobial empiric therapy pending the results. Does have bilateral wound VAC in place at this point, not overtly toxic. We will monitor expectantly. Certainly at risk for nosocomial related infectious complications including pneumonitis. At this point he should have adequate antibacterial coverage. We will monitor expectantly. <ELECTRONICALLY SIGNED> By: Bigg Casillas MD 12/04/16 0737 1558 2227 Bigg Casillas MD /nt
--- NOTE | ~2016-12-01 | EKG ---
[place] [address] [facility] [place] [address] ELECTROCARDIOGRAM REPORT Name: LAVERN LOWRY Room #: 459-P ADM IN M.R.#: [id number] Admission: 12/01/16 Attend Phys: Ayaan Ng Discharge: Date of : 50 Report #: [id number] THIS REPORT FOR: //name// [facility] Test Date: 2016-12-01 Test Time: 14:41:27 Pat Name: LAVERN LOWRY Department: Room: 459 P Gender: M Fly Winder: ANURADHA : 1950 Requested By: Trista Norris Order Number: [id number] MD: Cain Wang Measurements Intervals [place] Rate: 49 P: 20 GA: 126 QRS: -14 QRSD: 95 T: 33 QT: 487 QTc: 440 Interpretive Statements Sinus bradycardia Abnormal R-wave progression, early transition Nonspecific T abnormalities Baseline wander in lead(s) V3 No previous ECG available for comparison Electronically Signed On 12-02-2016 8:01:57 CDT by Cain Wang [email or web address] <ELECTRONICALLY SIGNED> By: Cain Wang MD, [facility] 12/02/16 0801 1441 144 Cain Wang MD, [facility] /EPI
--- NOTE | ~2016-12-01 | HC ---
[facility] [place] [address] CONSULTATION Name: LAVERN LOWRY Room #: 306-P ADM IN M.R.#: [id number] Admission: 12/01/16 Attend Phys: Levi Mcclendon MD Discharge: Date of : 50 Report #: [id number] THIS REPORT FOR: //name// CC: Levi HU DATE OF SERVICE: 12/02/2016 PERSONAL PHYSICIAN: Dr. Mcclendon. CHIEF COMPLAINT: Left thoracic dehiscent wound. HISTORY OF PRESENT ILLNESS: This is a 66-year-old white male who was transferred from [facility] to [facility] after he had a left thoracotomy wound dehiscence. The patient had the thoracotomy performed recently and then was discharged approximately 25 of November with home health. Patient's daughter states that home health nurses have been coming out on a regular basis and never noticed any type of dehiscence. They have also visited the wound care center in [place] and had not been noticed any dehiscence as well. It was until yesterday morning she changed the dressing and noticed there was a very large open wound in the left scapular region, she called the hospital and they recommend they go to the Emergency Department. The patient was then transferred to [facility] for further care. The patient's daughter also noticed that the drainage tubes on the left lower region have also been having increased amount of drainage. We have been asked to assist in the care of the wound at this time. The plan for now according to the daughter is the patient is going to go back to surgery with Dr. Mcclendon later today for debridement and possible wound VAC placement. PAST MEDICAL HISTORY: Congestive heart failure with an EF of approximately 60%. History of coronary artery disease, chronic kidney disease, generalized debility, hyperlipidemia, hypothyroidism, recurrent pleural effusions. PAST SURGICAL HISTORY: The patient had coronary artery bypass grafting x 1 vessel in 2002, cardiac catheterization in 2014 with a stent placement, bilateral thoracotomies, previous right carotid endarterectomy and a right fem-pop bypass. CURRENT MEDICATIONS: Multiple, I reviewed the patient's medication list. DRUG ALLERGIES: AVANDIA. SOCIAL HISTORY: The patient has a remote history of smoking, quit back in 1979. The patient still lives independently with his daughter. FAMILY HISTORY: Not pertinent to current medical condition. [address] [address] CONSULTATION Name: LAVERN LOWRY Room #: 306-P [facility] IN M.R.#: [id number] Admission: 12/01/16 Attend Phys: Levi Mcclendon MD Discharge: Date of : 50 Report #: [id number] REVIEW OF SYSTEMS: CONSTITUTIONAL: The patient denies fevers or chills. NEUROLOGIC: The patient overall generalized weakness, but no isolated weakness in arms or legs. EYES: No complaints. ENT: No complaints. CARDIAC: The patient denies chest pain, palpitations or peripheral edema. RESPIRATORY: Patient denies shortness breath, cough or wheezes. GASTROINTESTINAL: The patient denies nausea, vomiting, abdominal pain. GENITOURINARY: The patient denies urgency or frequency. MUSCULOSKELETAL: No complaints. SKIN: The patient has a dehiscent left scapula surgical thoracotomy wound with three drainage tube site wounds. PHYSICAL EXAMINATION: VITAL SIGNS: Stable. The patient is afebrile. GENERAL: This is an alert and oriented x 3, slightly pale white male who appears chronically ill. HEENT: Normocephalic, atraumatic. Mucous membranes are dry. Pupils are round. Sclerae white. NECK: Without JVD or masses. LUNGS: Slight diminished breath sounds heard throughout. On the back, there is a large surgical wound dehiscent in the left scapula region. Please see a wound care nurses notes for exact measurements, is fairly clean and granulating, has a moderate amount of serosanguineous drainage, there is no significant odor. In the left lower flank area, there are 3 separate drain sites, which track approximately spanning anywhere from 7-10 cm superiorly with a moderate amount of serosanguineous drainage also without odor. The periwound site is intact without significant erythema, warmth or signs of cellulitis. HEART: Regular, without murmur. ABDOMEN: Soft, otherwise nontender. EXTREMITIES: The patient moves all extremities without difficulty. NEUROLOGIC: Cranial nerves 2-12 are grossly intact. Motor and sensory grossly intact. LABORATORY DATA: White count 11.3, hemoglobin 12.7. Albumin is low at 1.7. IMPRESSION: 1. Dehiscent left thoracotomy surgical wound. 2. Surgical drain tube sites x3, left lower flank. 3. Severe protein calorie malnutrition with albumin of 1.7. 4. Generalized debility. PLAN: Dr. Mcclendon will take the patient back to surgery today with the hopes of being able to place the wound VAC over this site, possibly in the lower site as [facility] [address] [place] [address] CONSULTATION Name: LAVERN LOWRY Room #: 306-P ADM IN M.R.#: [id number] Admission: 12/01/16 Attend Phys: Levi Mcclendon MD Discharge: Date of : 50 Report #: [id number] well. We will continue to follow the patient for his wound. Also make sure the patient gets adequate physical and occupational therapy for his strengthening. Also make sure, we maximize the patient's oral supplementation of protein and other supplements for healing. I appreciate the ability to consult. We will continue to follow him. <ELECTRONICALLY SIGNED> By: Aidan Bueno MD 12/07/16 0825 1026 0026 Aidan Bueno MD /nt
--- NOTE | ~2016-12-01 | O ---
[facility] [place] [address] OPERATIVE REPORT Name: LAVERN LOWRY Room #: 306-P [facility] IN M.R.#: [id number] Admission: 12/01/16 Attend Phys: Levi Mcclendon MD Discharge: 12/08/16 Date of : 50 Report #: [id number] THIS REPORT FOR: //name// CC: Levi HU DATE OF SERVICE: 12/02/2016 PREOPERATIVE DIAGNOSIS: Infected left thoracotomy incision. OPERATION: Irrigation and debridement of left chest wound with placement of wound VAC. SURGEON: Levi Mcclendon MD [employer]: [employer]ose[employer]. ANESTHESIA: General. INDICATION: The patient is a 66-year-old known to me from previous hospitalization. 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 I performed the right side several months ago and Dr. Dunham performed the left side, approximately 1 month prior to reexploration. Unfortunately, the patient has developed cellulitis and drainage from the left thoracotomy incision and it appeared in the office that this would be best explored and debrided under general anesthesia. FINDINGS AND TECHNIQUE: After general anesthesia was established, the patient was positioned with left side up. Exposure was obtained by opening the left thoracotomy wound. The extent of the wound was opened in length, approximately 12 cm ultimately and with the wound was approximately 3 cm wide and debridement was done sharply with scalpel to include skin edges, subcutaneous fat and fascia. The wound was irrigated after sharp debridement with a Pulsavac. The wound extended down to the chest wall and in fact there were some areas where there was exposed lung. No area of the intrathoracic chest was debrided to any significant degree, however. There were also 3 chest tube sites that were separate. I thought the best way to handle the cellulitis related to these wounds was to connect them. This created an incision approximately 8 cm long and 1.5 cm wide. This incision extended through skin and subcutaneous fat and fascia and there was sharp debridement done of the wound edges that were necrotic or infected. [address] [address] OPERATIVE REPORT Name: LAVERN LOWRY Room #: 306-P [facility] IN M.R.#: [id number] Admission: 12/01/16 Attend Phys: Levi Mcclendon MD Discharge: 12/08/16 Date of : 50 Report #: [id number] This area was also irrigated with a Pulsavac. When all of the areas were cleansed, a wound VAC was applied. Each of the areas received its own black sponge and Y connector was sought to allow us to use only one suction device. The Y connector was not available and 2 suction devices were used. The patient tolerated the procedure well and was taken to the recovery area in good condition with the expectation that he would be discharged when the wound VAC was organized properly. By: [id number] Levi Mcclendon MD /nt
[~2016-12-01 11:19] MED LIST changes: +ALDACTONE25 MG PO; +DUONEB 2.5-0.5 M3 ML INH; +FLONASE 0.05%50 MCG NASAL; +LASIX 40 MG TAB40 M2 PO; +PAIN & FEVER325 MG PO; +PEPCID20 MG PO; +PREDNISONE 10 M10 MG PO
[2016-12-01 14:50] LABS: HEMATOCRIT 38.9 % (42.0-52.0); HEMOGLOBIN 12.7 gm/dL (14.0-18.0); MCH 30.3 pg (26.0-34.0); MCHC 32.5 g/dL (28.0-37.0); MCV 93.1 fL (80.0-100.0); PLATELET COUNT 128 thou/uL (150-400); RBC 4.18 mil/uL (4.50-6.00); RDW 24.6 % (10.5-14.5); WBC 11.3 thou/uL (4.0-11.0)
[2016-12-01 14:56] LABS: MANUAL DIFF YES
[2016-12-01 14:58] LABS: CALCIUM 8.1 mg/dL (8.5-10.1); CREATININE 1.4 mg/dL (0.7-1.3)
[2016-12-01 15:01] LABS: PROTIME 10.4 Seconds (9.3-11.4)
[2016-12-01 15:09] LABS: ALBUMIN 2.7 g/dL (3.4-5.0); TOTAL BILIRUBIN 0.6 mg/dL (<0.1-1.0); TOTAL PROTEIN 6.1 g/dL (6.4-8.2); TROPONIN-I 0.06 ng/mL (<0.04-0.07)
[2016-12-01 15:19] LABS: ABSOLUTE NEUTROPHILS 10.2 thou/uL (1.4-8.2); ANISOCYTOSIS 2+; POLYCHROMASIA OCCASIONAL; TOTAL CELL COUNT 100
[2016-12-01 19:38] VITALS: BP 130/61
[2016-12-02] VITALS (8 sets, daily range): BP systolic 105–152; BP diastolic 47–63
[2016-12-02 06:23] LABS: ALBUMIN 2.5 g/dL (3.4-5.0); CALCIUM 7.9 mg/dL (8.5-10.1); CREATININE 1.4 mg/dL (0.7-1.3); MAGNESIUM 2.4 mg/dL (1.8-2.4); POTASSIUM 4.2 mmol/L (3.5-5.1); TOTAL BILIRUBIN 0.6 mg/dL (<0.1-1.0); TOTAL PROTEIN 5.5 g/dL (6.4-8.2)
[2016-12-02 13:23] LABS: URINE BILIRUBIN NEGATIVE (Negative); URINE BLOOD NEGATIVE (Negative); URINE COLOR YELLOW; URINE GLUCOSE-RANDOM* TRACE (Negative); URINE KETONES NEGATIVE (Negative); URINE LEUKOCYTES-REFLEX NEGATIVE (Negative); URINE PROTEIN (DIPSTICK) NEGATIVE (Negative); URINE UROBILINOGEN 0.2 E.U./dl (0.2-1.0)
[2016-12-03] VITALS (19 sets, daily range): BP systolic 101–124; BP diastolic 45–96
[2016-12-03 04:20] LABS: HEMATOCRIT 31.2 % (42.0-52.0); MCH 30.8 pg (26.0-34.0); MCHC 32.8 g/dL (28.0-37.0); PLATELET COUNT 78 thou/uL (150-400); RBC 3.32 mil/uL (4.50-6.00); RDW 23.6 % (10.5-14.5); WBC 6.9 thou/uL (4.0-11.0)
[2016-12-03 04:21] LABS: HEMOGLOBIN 10.2 gm/dL (14.0-18.0); MANUAL DIFF YES
[2016-12-03 04:32] LABS: ALBUMIN 1.7 g/dL (3.4-5.0); CALCIUM 7.4 mg/dL (8.5-10.1); CREATININE 1.2 mg/dL (0.7-1.3); PHOSPHORUS 3.3 mg/dL (2.5-4.9); POTASSIUM 4.6 mmol/L (3.5-5.1)
[2016-12-03 04:37] LABS: ABSOLUTE NEUTROPHILS 6.4 thou/uL (1.4-8.2); TOTAL CELL COUNT 100
[2016-12-03 04:38] LABS: ANISOCYTOSIS 2+; LARGE PLATELETS FEW; MACROCYTES 1+; MICROCYTES 1+
[2016-12-04 00:06] VITALS: BP 123/52
[2016-12-04 04:05] VITALS: BP 122/51
[2016-12-04 05:12] LABS: HEMATOCRIT 31.7 % (42.0-52.0); HEMOGLOBIN 10.5 gm/dL (14.0-18.0); MCV 93.9 fL (80.0-100.0); RBC 3.38 mil/uL (4.50-6.00); RDW 23.8 % (10.5-14.5); WBC 6.3 thou/uL (4.0-11.0)
[2016-12-04 07:29] VITALS: BP 130/49
[2016-12-04 16:44] VITALS: BP 119/51
[2016-12-04 19:35] VITALS: BP 135/56
[2016-12-05 04:06] VITALS: BP 118/50
[2016-12-05 07:39] VITALS: BP 145/70
[2016-12-05 08:03] VITALS: BP 135/57
[2016-12-05 17:45] VITALS: BP 154/59
[2016-12-05 20:00] VITALS: BP 127/60
[2016-12-06 04:00] VITALS: BP 112/56
[2016-12-06 07:51] VITALS: BP 132/67
[2016-12-06 07:56] VITALS: BP 100/59
[2016-12-06 11:16] LABS: HEMATOCRIT 34.2 % (42.0-52.0); HEMOGLOBIN 11.4 gm/dL (14.0-18.0); MCH 30.8 pg (26.0-34.0); MCHC 33.3 g/dL (28.0-37.0); MCV 92.6 fL (80.0-100.0); RBC 3.7 mil/uL (4.50-6.00); RDW 23.4 % (10.5-14.5)
[2016-12-06 16:35] VITALS: BP 97/44
[2016-12-06 20:00] VITALS: BP 86/46
[2016-12-07 04:00] VITALS: BP 130/59
[2016-12-07 07:45] VITALS: BP 93/58
[2016-12-07 16:06] VITALS: BP 104/48
[2016-12-07 19:30] VITALS: BP 113/54
[2016-12-08 04:21] VITALS: BP 126/59
[2016-12-08 08:11] VITALS: BP 120/48
[2016-12-08] MEDS ORDERED: ROCEPHIN 11 GM/1001 IV (09:22)
[2016-12-08 11:46] VITALS: BP 120/48
[2016-12-08 12:30] VITALS: BP 120/48
[2016-12-08 15:56] VITALS: BP 108/46
== END 2016-12-08 18:03 | disposition home health service (06) | DRG 901 ==
LOC: 4W 11:19 → 3N 12:41 → 4W 14:24 → ICU 12-02 15:04 → 3N 12-03 18:29
PROVIDERS: Hospitalist; Nurse Practitioner; Physician Assistant
PROC: 0JB60ZZ Excision of Chest Subcutaneous Tissue and Fascia, Open Approach (ICD-10-PCS; principal; 2016-12-02)
PROC: 02H633Z Insertion of Infusion Device into Right Atrium, Percutaneous Approach (ICD-10-PCS; 2016-12-02)
PROC: B244ZZZ Ultrasonography of Right Heart (ICD-10-PCS; 2016-12-02)
DX: T81.30XA Disruption of wound, unspecified, initial encounter (principal); E43 Unspecified severe protein-calorie malnutrition; I13.0 Hypertensive heart and chronic kidney disease with heart failure and stage 1 through stage 4 chronic kidney disease, or unspecified chronic kidney disease; I50.30 Unspecified diastolic (congestive) heart failure; J90 Pleural effusion, not elsewhere classified; E11.51 Type 2 diabetes mellitus with diabetic peripheral angiopathy without gangrene; I25.10 Atherosclerotic heart disease of native coronary artery without angina pectoris; E03.9 Hypothyroidism, unspecified; E78.5 Hyperlipidemia, unspecified; K21.9 Gastro-esophageal reflux disease without esophagitis; R53.81 Other malaise; J44.9 Chronic obstructive pulmonary disease, unspecified; G47.33 Obstructive sleep apnea (adult) (pediatric); N18.3 Chronic kidney disease, stage 3 (moderate); E11.22 Type 2 diabetes mellitus with diabetic chronic kidney disease; Z82.49 Family history of ischemic heart disease and other diseases of the circulatory system; Z68.33 Body mass index [BMI] 33.0-33.9, adult; Z95.1 Presence of aortocoronary bypass graft; Z87.891 Personal history of nicotine dependence; Z88.8 Allergy status to other drugs, medicaments and biological substances; Z83.3 Family history of diabetes mellitus
CPT/HCPCS: 10045; 10078; 10096; 27000; 47405; 50010; 50101; 50366; 50417; 50643; 53078; 62110; 62900; 70005

== ENCOUNTER → 2016-12-19 | Outpatient (CLI) | payer OTHER ==
[~2016-12-19] MED LIST changes: +ROCEPHIN 11 GM/1001 IV
== END ==
LOC: HYPER 07:08
DX: T81.31XA Disruption of external operation (surgical) wound, not elsewhere classified, initial encounter (principal); E11.22 Type 2 diabetes mellitus with diabetic chronic kidney disease; I13.0 Hypertensive heart and chronic kidney disease with heart failure and stage 1 through stage 4 chronic kidney disease, or unspecified chronic kidney disease; N18.9 Chronic kidney disease, unspecified; I50.9 Heart failure, unspecified; I25.10 Atherosclerotic heart disease of native coronary artery without angina pectoris; E78.5 Hyperlipidemia, unspecified; E03.9 Hypothyroidism, unspecified; K21.9 Gastro-esophageal reflux disease without esophagitis; J44.9 Chronic obstructive pulmonary disease, unspecified; Z79.4 Long term (current) use of insulin; Z87.891 Personal history of nicotine dependence; Z72.89 Other problems related to lifestyle; Y83.8 Other surgical procedures as the cause of abnormal reaction of the patient, or of later complication, without mention of misadventure at the time of the procedure; Y92.89 Other specified places as the place of occurrence of the external cause

== ENCOUNTER 2016-12-24 19:41 | Inpatient (IN) | payer OTHER ==
[~2016-12-24] VITALS: Ht 167.6 cm; Wt 99.7 kg
--- NOTE | ~2016-12-24 | EKG ---
[address] [place] [address] ELECTROCARDIOGRAM REPORT Name: LAVERN LOWRY Room #: 453-P ADM IN M.R.#: [id number] Admission: 12/24/16 Attend Phys: Marlon Villaseñor MD Discharge: Date of : 50 Report #: [id number] THIS REPORT FOR: //name// [facility] Test Date: 2016-12-25 Test Time: 02:32:08 Pat Name: LAVERN LOWRY Department: Room: 453 P Gender: M Director Hair: hever : 1950 Requested By: Rika Troncoso Order Number: [id number] MD: Cain Wang Measurements Intervals [place] Rate: 84 P: 52 SC: 117 QRS: -8 QRSD: 82 T: 118 QT: 349 QTc: 413 Interpretive Statements Sinus rhythm Borderline short SC interval LVH with secondary repolarization abnormality Compared to ECG 12/01/2016 14:41:27 No significant change was found Electronically Signed On 12-25-2016 14:05:43 CDT by Cain Wang [email or web address] <ELECTRONICALLY SIGNED> By: Cain Wang MD, [facility] 12/25/16 1405 1 1 Cain Wang MD, [facility] /EPI
--- NOTE | ~2016-12-24 | HC ---
[facility] [place] [address] CONSULTATION Name: LAVERN LOWRY Room #: 453-P [facility] IN M.R.#: [id number] Admission: 12/24/16 Attend Phys: Marlon Villaseñor MD Discharge: 12/27/16 Date of : 50 Report #: [id number] THIS REPORT FOR: //name// CC: Marlon HU DATE OF SERVICE: 12/25/2016 TYPE OF REPORT: Infectious disease consultation. ATTENDING PHYSICIAN: Marlon Villaseñor M.D. REASON FOR CONSULTATION: Follow up left chest wound, my antibiotic management. HISTORY OF PRESENT ILLNESS: The patient is a 66-year-old white man readmitted to [facility] with increasing shortness of breath and fluid retention and worsening renal function. The patient usually requiring 2 liters of oxygen at home and here up lately requiring 4. At present, he is having cough and moving bronchial secretions. No nausea, vomiting or diarrhea. PAST MEDICAL HISTORY: 1. Peripheral vascular disease requiring bypass grafting and carotid endarterectomy. 2. Congestive heart failure, diastolic dysfunction. 3. Coronary artery disease. 4. Diabetes mellitus. 5. Hypothyroidism. 6. History of right thoracotomy decortication in August 2016 and left thoracotomy decortication in October 2016. 7. Dehiscent left chest wound requiring vacuum device, on treatment with Rocephin 1 g daily. SOCIAL HISTORY: See H and P. FAMILY HISTORY: See H and P. REVIEW OF SYSTEMS: As above and see H and P. PHYSICAL EXAMINATION: GENERAL: Obese man, not toxic looking, with cough and moving bronchial secretions. VITAL SIGNS: Temperature 98.9, pulse 88, respirations 18, BP 174/64, height 5 feet 6 inches, weight 210 pounds and O2 saturation 94% on 2 liters nasal cannula. HEENMT: Within range. NECK: Supple. No thyromegaly. [facility] [address] [place] [address] CONSULTATION Name: LAVERN LOWRY Room #: 453-P [facility] IN ..#: [id number] Admission: 12/24/16 Attend Phys: Marlon Villaseñor MD Discharge: 12/27/16 Date of : 50 Report #: [id number] LUNGS: Few rhonchi. Left chest wound with a vacuum device. HEART: S1 and S2. No gallop or murmur. ABDOMEN: Obese and soft. No masses or megaly. EXTREMITIES: Mild pretibial edema. GENITALIA: Deferred. RECTAL: Deferred. LABORATORY DATA: Sodium 140, potassium 5.6, BUN 89 and creatinine 1.7. Note is made, the patient has chronic kidney disease with creatinine between 53 and 72 mg/dL. Prior to this admission, creatinine 1.7 mg/dL. During last hospitalization on December 03, the creatinine was 1.2. WBC 13.4; hemoglobin 9.2 and platelets decreased at 140,000. Note is made that the patient was thrombocytopenic on November 23 through December 06 before. The white blood cell count differential reveals 78% segmented neutrophils. Urinalysis essentially negative. During previous hospitalization, cultures were obtained of chest, sputum and incision and they all revealed skin kevin are pending are essentially of no significant pathogens isolated. MEDICATIONS: The patient is currently on treatment with famotidine, polyethylene glycol, aspirin, amlodipine, metoprolol, atorvastatin, subcutaneous heparin, hydrocodone, furosemide, Atrovent inhalation treatments, Rocephin 1 g IV daily, glucose p.r.n., ondansetron p.r.n. and has received sodium polystyrene sulfonate one time. ASSESSMENT: 1. Nonhealing left chest wound with vacuum device. 2. History of left thoracotomy for loculated pleural effusion and history of wound infection requiring irrigation and debridement of chest wound and placement of vacuum device on 12/01/2016. 3. Diabetes mellitus. 4. Congestive heart failure. 5. Acute kidney injury, on chronic kidney disease. 6. Hyperkalemia. 7. Thrombocytopenia, question etiology. SUGGESTIONS: Recommend sputum culture, ESR and CRP. Discontinue Rocephin. Meropenem 500 IV every [address] Villaseñor, thank you for requesting our suggestions in the care of your patient. <ELECTRONICALLY SIGNED> By: Cl Swan MD 12/28/16 1122 [id number] 02 Cl Swan MD /nt
--- NOTE | ~2016-12-24 | HC ---
[facility] [place] [address] CONSULTATION Name: LAVERN LOWRY Room #: 453-P [facility] IN ..#: [id number] Admission: 12/24/16 Attend Phys: Marlon Villaseñor MD Discharge: 12/27/16 Date of : 50 Report #: [id number] THIS REPORT FOR: //name// CC: Marlon HU DATE OF SERVICE: 12/27/2016 PERSONAL PHYSICIAN: Marlon Villaseñor MD CHIEF COMPLAINT: Left thoracotomy and flank wounds. HISTORY OF PRESENT ILLNESS: This is a 66-year-old white male who was recently hospitalized for persistent pneumothorax and need for surgical debridement of the left thoracotomy wound. This has been done and the patient was placed on a wound VAC treatment, of which the patient was doing well. However, the patient was at his nursing facility, in the past couple of days he was having increasing weight again, shortness of breath and increasing lower extremity edema. The patient was brought back to the hospital and was admitted for IV diuresis. I have been asked to assist in the care of his surgical wounds at this time. The patient states he has been tolerating the wound VAC therapy to the wounds without difficulty. The patient denies any other associated complaints. PAST MEDICAL HISTORY: Significant for recurrent congestive heart failure, renal failure, hyperkalemia, the previous thoracotomy, coronary artery disease with previous bypass grafting, and stent placement. CURRENT MEDICATIONS: Multiple, I reviewed the patient's medication list. DRUG ALLERGIES: AVANDIA. SOCIAL HISTORY: The patient does not smoke; however, history of smoking cigars several years ago. The patient does not do drugs or alcohol. FAMILY HISTORY: The patient resides with his daughter. REVIEW OF SYSTEMS: CONSTITUTIONAL: The patient denies fevers or chills. NEUROLOGIC: The patient has overall generalized weakness, but no isolated weakness in arms or legs. EYES: No complaints. ENT: No complaints. CARDIAC: The patient denies chest pain, palpitations, but does have increased peripheral edema, which is improved over the past 24 hours. RESPIRATORY: The patient had dyspnea on exertion and some cough, but this is improved. [facility] [address] [address] CONSULTATION Name: LAVERN LOWRY Room #: 453-P [facility] IN M.R.#: [id number] Admission: 12/24/16 Attend Phys: Marlon Villaseñor MD Discharge: 12/27/16 Date of : 50 Report #: [id number] GASTROINTESTINAL: The patient denies nausea, vomiting, abdominal pain or diarrhea. GENITOURINARY: The patient denies urgency or frequency. MUSCULOSKELETAL: No complaints. SKIN: There is a left thoracotomy incision as well as left flank chest tube wound. PHYSICAL EXAMINATION: VITAL SIGNS: Stable. The patient is afebrile. GENERAL: This is an alert and oriented x3 pleasant white male, who is absolutely in no distress. HEENT: Normocephalic, atraumatic. Mucous membranes are moist. Pupils are round. Sclerae are white. NECK: Without JVD or masses. LUNGS: Diminished breath sounds heard throughout, more diminished on the left than the right, occasional scattered wheeze. EXTREMITIES: On the back, left thoracotomy wound is fairly clean, granulating approximately 70% granulation tissue, 30% yellowish slough. The area of previous exposure of the pleural cavity is markedly diminished. There is minimal serosanguineous drainage without odor, no signs of cellulitis or periwound infection. Evaluation of left lower flank chest tube wounds are clean, granulating without signs of infection. There is minimal serosanguineous drainage without odor. Periwound is otherwise intact. There is no tunneling, tracking or undermining. HEART: Regular, without murmur. ABDOMEN: Soft, otherwise nontender. EXTREMITIES: The patient has trace to 1+ edema with distal neurovascular is intact. Bilateral heels are intact. NEUROLOGIC: Cranial nerves 2-12 are grossly intact. Motor and sensory grossly intact. LABORATORY VALUES: White count 9.4 and hemoglobin 8.8. IMPRESSION: 1. Left thoracotomy wound, overall improving. 2. Left flank chest tube wounds, overall improving. 3. Diabetes mellitus with elevated glucose. 4. Acute exacerbation of chronic congestive heart failure. 5. Hypertension. PLAN: At this time, I think the patient is responding well to the wound VAC therapy. We will continue this in his rehab facility, which is approximately [address] of [place]. The patient has followup appointment to see me in 2 weeks. We will continue the wound VAC until that time with home health nurses following the patient. I have encouraged the patient to maximize his oral supplementation of protein for maximizing his healing. Also, encouraged the [address] [place] [address] CONSULTATION Name: LAVERN LOWRY Room #: 453-P [facility] IN M.R.#: [id number] Admission: 12/24/16 Attend Phys: Marlon Villaseñor MD Discharge: 12/27/16 Date of : 50 Report #: [id number] patient to maximize his physical and occupational therapy at his rehab facility for strengthening. We will continue the patient's all other current medications. I appreciate the ability to consult. <ELECTRONICALLY SIGNED> By: Aidan Bueno MD 12/28/16 1826 [id number] [id number] Aidan Bueno MD /nt
[2016-12-25 01:12] LABS: POTASSIUM 5.4 mmol/L (3.5-5.1)
[2016-12-25 01:46] LABS: TROPONIN-I 0.07 ng/mL (<0.04-0.07)
[2016-12-25 03:59] LABS: URINE BILIRUBIN NEGATIVE (Negative); URINE BLOOD NEGATIVE (Negative); URINE COLOR YELLOW; URINE GLUCOSE-RANDOM* NEGATIVE (Negative); URINE KETONES NEGATIVE (Negative); URINE NITRITE NEGATIVE (Negative); URINE PROTEIN (DIPSTICK) NEGATIVE (Negative); URINE UROBILINOGEN 0.2 E.U./dl (0.2-1.0)
[2016-12-25 04:00] VITALS: BP 172/64
[2016-12-25 06:44] LABS: ABSOLUTE NEUTROPHILS 10.4 thou/uL (1.4-8.2); BASOPHILS 0.3 % (0.0-2.0); EOSINOPHILS 0.2 % (0.0-3.0); HEMATOCRIT 27.9 % (42.0-52.0); HEMOGLOBIN 9.2 gm/dL (14.0-18.0); LYMPHOCYTES 11.8 % (24.0-44.0); MCHC 33.1 g/dL (28.0-37.0); MCV 93.6 fL (80.0-100.0); MONOCYTES 9.6 % (1.0-8.0); PLATELET COUNT 140 thou/uL (150-400); POLYS 78.1 % (36.0-66.0); RBC 2.98 mil/uL (4.50-6.00); RDW 21.1 % (10.5-14.5); WBC 13.4 thou/uL (4.0-11.0)
[2016-12-25 06:48] LABS: MANUAL DIFF NO
[2016-12-25 06:59] LABS: CALCIUM 8.8 mg/dL (8.5-10.1); CREATININE 1.7 mg/dL (0.7-1.3); POTASSIUM 5.6 mmol/L (3.5-5.1); TROPONIN-I 0.07 ng/mL (<0.04-0.07)
[2016-12-25 08:25] VITALS: BP 116/65
[2016-12-25 11:46] VITALS: BP 137/55
[2016-12-25 15:11] VITALS: BP 130/55
[2016-12-25 18:47] LABS: TROPONIN-I 0.07 ng/mL (<0.04-0.07)
[2016-12-25 19:53] VITALS: BP 134/51
[2016-12-26 04:35] VITALS: BP 122/49
[2016-12-26 05:23] LABS: HEMOGLOBIN 9.4 gm/dL (14.0-18.0); MCH 31.2 pg (26.0-34.0); MCHC 33.6 g/dL (28.0-37.0); MCV 92.9 fL (80.0-100.0); RBC 3.01 mil/uL (4.50-6.00); RDW 21.6 % (10.5-14.5); WBC 9.9 thou/uL (4.0-11.0)
[2016-12-26 05:38] LABS: ALBUMIN 2.1 g/dL (3.4-5.0); CALCIUM 8.2 mg/dL (8.5-10.1); CREATININE 1.6 mg/dL (0.7-1.3); TOTAL BILIRUBIN 0.4 mg/dL (<0.1-1.0); TOTAL PROTEIN 5.7 g/dL (6.4-8.2)
[2016-12-26 05:41] LABS: POTASSIUM 6.2 mmol/L (3.5-5.1)
[2016-12-26 07:53] VITALS: BP 114/55
[2016-12-26 12:24] VITALS: BP 121/51
[2016-12-26 15:43] VITALS: BP 125/49
[2016-12-26 19:40] VITALS: BP 120/50
[2016-12-27 03:35] VITALS: BP 132/55
[2016-12-27 07:22] LABS: HEMATOCRIT 26.1 % (42.0-52.0); HEMOGLOBIN 8.8 gm/dL (14.0-18.0); MCH 31.5 pg (26.0-34.0); MCHC 33.6 g/dL (28.0-37.0); MCV 93.6 fL (80.0-100.0); RBC 2.79 mil/uL (4.50-6.00); RDW 21.8 % (10.5-14.5); WBC 9.4 thou/uL (4.0-11.0)
[2016-12-27 07:30] LABS: CALCIUM 7.6 mg/dL (8.5-10.1); CREATININE 1.7 mg/dL (0.7-1.3)
[2016-12-27 07:42] VITALS: BP 121/52
[2016-12-27 10:38] VITALS: BP 121/52
[2016-12-27 12:19] VITALS: BP 105/48
[2016-12-27] MEDS ORDERED: KEFLEX500 MG PO (13:35)
[2016-12-27 17:07] VITALS: BP 121/52
[2016-12-27] MEDS ORDERED: PREDNISONE10 MG PO (17:32)
== END 2016-12-27 18:10 | disposition home health service (06) | DRG 871 ==
LOC: 4W 19:41
PROVIDERS: Hospitalist; Nurse Practitioner Family
DX: A41.9 Sepsis, unspecified organism (principal); I50.33 Acute on chronic diastolic (congestive) heart failure; J96.21 Acute and chronic respiratory failure with hypoxia; I13.0 Hypertensive heart and chronic kidney disease with heart failure and stage 1 through stage 4 chronic kidney disease, or unspecified chronic kidney disease; N17.9 Acute kidney failure, unspecified; T81.89XA Other complications of procedures, not elsewhere classified, initial encounter; I25.10 Atherosclerotic heart disease of native coronary artery without angina pectoris; E03.9 Hypothyroidism, unspecified; E87.5 Hyperkalemia; D69.6 Thrombocytopenia, unspecified; E78.5 Hyperlipidemia, unspecified; I35.0 Nonrheumatic aortic (valve) stenosis; D72.829 Elevated white blood cell count, unspecified; E11.51 Type 2 diabetes mellitus with diabetic peripheral angiopathy without gangrene; E78.00 Pure hypercholesterolemia, unspecified; I27.2 Other secondary pulmonary hypertension; D64.9 Anemia, unspecified; E11.22 Type 2 diabetes mellitus with diabetic chronic kidney disease; N18.9 Chronic kidney disease, unspecified; Z95.1 Presence of aortocoronary bypass graft; Z98.62 Peripheral vascular angioplasty status; Z88.1 Allergy status to other antibiotic agents; Z87.891 Personal history of nicotine dependence; Z79.4 Long term (current) use of insulin; Z79.82 Long term (current) use of aspirin; Z79.899 Other long term (current) drug therapy; Z91.19 Patient's noncompliance with other medical treatment and regimen
CPT/HCPCS: 10047

== ENCOUNTER 2016-12-31 16:57 | Inpatient (IN) | payer OTHER ==
[~2016-12-31] VITALS: Ht 170.2 cm; Wt 100.8 kg
--- NOTE | ~2016-12-31 | HC ---
[facility] [place] [address] CONSULTATION Name: LAVERN LOWRY Room #: 246-P [facility] IN M.R.#: [id number] Admission: 12/31/16 Attend Phys: Ayaan Ng Discharge: Date of : 50 Report #: [id number] THIS REPORT FOR: //name// CC: SELENA Hampton DATE OF SERVICE: 01/01/2017 NEPHROLOGY CONSULTATION REASON FOR CONSULTATION: Elevated creatinine and elevated potassium. HISTORY OF PRESENT ILLNESS: This is a 66-year-old male who is admitted to [facility] for the sixth time so far this year. In fact, he was just discharged home 4 days ago after his most recent hospitalization. All those hospitalizations are very well documented in numerous notes. We have seen him on a couple of those hospitalizations for his chronic kidney disease and volume management. His main problems have been chronic dyspnea and progressive pulmonary issues. He has had bilateral thoracotomies. He has had mediastinoscopy, decortication of his lungs, he has had lung biopsies. Volume has always been a difficult problem. He tends to get easily volume overloaded. We have progressively worked on getting him diuresed. His volume status continues to be very tenuous. He has had times when he has gone home, rapidly gained a large amount of fluid back again and required increasing amounts of diuresis. From a kidney standpoint, he runs a baseline creatinine of about 1.4-1.6, sometimes higher than that. He has had several episodes of acute kidney injury where his creatinine level has gone up over 2. At this time, his creatinine has gone up over 3. He has had extensive renal workup. He has had an extensive immunologic workup, which has been negative for ANCA, QUEENIE and anti-GBM. He has shown no evidence of paraprotein disorders. He has [id number]-[id number] proteinuria. He has longstanding diabetes and hypertension, which have required recurring treatments. At this point, he states he has had no difficulty voiding urine, his urine has looked its normal self, he denies hematuria. He says his weight at home has actually gone down about 4 pounds since he got discharged to home. He has been somewhat weak. He has had increasing dyspnea. The main thing that drove this admission is that he said his oxygen heater at home ran low or ran out and he was unable to get enough oxygen, which he wears chronically at home anyway. He states he has been taking his medications as ordered. He denies taking any nonsteroidals. PAST MEDICAL HISTORY: Longstanding diabetes and hypertension. He has chronic kidney disease with creatinine level of 1.4-1.6. He has coronary artery disease. He had previous coronary artery bypass graft surgery in 2003, stent in 2014. He has had previous right carotid endarterectomy and right fem-pop [facility] [address] [place] [address] CONSULTATION Name: LAVERN LOWRY Room #: 246-P [facility] IN M.R.#: [id number] Admission: 12/31/16 Attend Phys: Ayaan Ng Discharge: Date of : 50 Report #: [id number] bypass. He has had the thoracotomies and decortications. He has had a wound on the left chest after one of the thoracotomies and he has had ongoing therapy for that including wound VAC. That wound VAC is still in place. MEDICATIONS ON ADMISSION: Include losartan 50 mg daily, furosemide 40 mg b.i.d., spironolactone 25 mg daily, amlodipine 10 mg daily, metoprolol 50 mg b.i.d., aspirin 81 mg daily, atorvastatin 40 mg daily, cephalexin 500 mg b.i.d., famotidine 20 mg b.i.d., fluticasone inhaler, gabapentin 300 mg t.i.d., 70/30 insulin, DuoNeb inhaler, levothyroxine 0.15 mg daily, multivitamin daily, MiraLax, prednisone 10 mg daily and Ambien 5 mg at bedtime. ALLERGIES AND ADVERSE REACTIONS: INCLUDE AVANDIA. FAMILY HISTORY: Is positive for diabetes and heart disease, no renal disease. SOCIAL HISTORY: The patient is a . He lives in [place], [place]. He is retired. Most recently he has been living in the home of his daughter in between his numerous hospitalizations. Former smoker, currently a nonsmoker. REVIEW OF SYSTEMS: Chronically dyspneic. Chronic cough. Again, he still has the wound VAC in place. He denies chest pain. Unaware of palpitations. He says he brings up some sputum, not particularly purulent. He is unaware of fevers, chills or sweats. Denies nausea or vomiting. No recent change in bowel habits. Again, no difficulty voiding urine, no hematuria. No dysuria. He has chronic lower extremity edema but it has been better. Again, his weight has been down about 4-6 pounds since he got discharged a few days ago. He is unaware of lightheadedness or dizziness. Unaware of fevers, chills or sweats. PHYSICAL EXAMINATION: GENERAL: Chronically, ill-appearing male, awake, alert and responsive at this time. VITAL SIGNS: Blood pressure is 134/60, heart rate is 64, respiratory rate 24, oxygen saturation 97%, temperature 97.8 degrees Fahrenheit. HEENT: Shows pupils are equal and reactive. Sclerae nonicteric. Oral mucosa is somewhat dry. NECK: Shows no JVD, no bruits are audible. CHEST: Shows rhonchi bilaterally with very shallow respirations. CARDIOVASCULAR: Has a regular rate and rhythm. ABDOMEN: Mildly protuberant, bowel sounds are present, no abdominal wall edema. I cannot palpate organomegaly or masses, no tenderness. EXTREMITIES: Show 1+ bilateral lower extremity edema with numerous old skin changes and appear to be from chronic edema venous stasis changes. No upper extremity edema. LABORATORY DATA: Sodium 136, potassium 5.4, chloride 97, bicarbonate 32, BUN 163, creatinine 3.3, glucose 386, total bilirubin 0.3, calcium 8.5, total [facility] [address] [place] [address] CONSULTATION Name: LAVERN LOWRY Room #: 246-P [facility] IN ..#: [id number] Admission: 12/31/16 Attend Phys: Ayaan Ng Discharge: Date of : 50 Report #: [id number] protein 6.2, albumin 2.3. White count 6.7, hemoglobin 8.6, hematocrit 26.6, platelets 130,000. No urinalysis drawn. Blood gas, pH 7.36, pCO2 of 54 and pO2 of 74. ASSESSMENT: 1. Acute kidney injury on top of chronic kidney disease. The acute changes are due to volume depletion. He has gotten some normal saline bag. Blood pressure is good at this point. He chronically has such a narrow window of volume status. I am going to back off his additional IV fluids at this time. We will hold his diuretics and his losartan at the moment. Eventually we will want to get him back on those for long-term management, although he may require some dosage adjustment. Labs are clearly prerenal at this time. We will get urine studies to confirm. 2. Chronic kidney disease, stage 3, baseline creatinine level of 1.4-1.6. I expect him to get back to that range, extensive previous renal workup, none of that needs to be repeated. 3. Hyperkalemia mild. Again, we will hold losartan and spironolactone at this time. This should correct fairly readily. 4. Chronic respiratory failure with chronic hypoxemia, multiple recent thoracotomies, lung decortications. 5. Coronary artery disease, previous bypass, previous stents, no current symptoms related to that. 6. Diabetes mellitus, longstanding. Sugars are high and they need to come down. Some of his potassium changes will correct once that is accomplished. 7. Chronic anemia. PLAN: 1. He has already gotten some IV fluid. I will stop the additional fluids at this time. 2. Continue to hold furosemide, spironolactone and losartan. Again, we will restart these in some combination once things stabilize. 3. Repeat labs in the morning. 4. Improve glycemic control. 5. We will follow along in the care of this patient. <ELECTRONICALLY SIGNED> By: Will Weaver MD 01/02/17 1011 [id number] Pepe William MD /nt
--- NOTE | ~2016-12-31 | HC ---
[facility] [place] [address] CONSULTATION Name: LAVERN LOWRY Room #: 236-P [facility] IN M.R.#: [id number] Admission: 12/31/16 Attend Phys: Ayaan Ng Discharge: Date of : 50 Report #: [id number] THIS REPORT FOR: //name// CC: SELENA Hampton MD DATE OF SERVICE: 01/01/2017 DATE OF SERVICE: 01/01/2017. REFERRING PROVIDER: Mark Hampton M.D. REASON FOR CONSULTATION: Pulmonary infiltrates hypoxemic respiratory failure. CHIEF COMPLAINT: Shortness of breath and hypoxemia. HISTORY OF PRESENT ILLNESS: Our group was asked to see the patient in consultation while hospitalized at [facility] recently discharged and had a prolonged hospital stay for persistent pulmonary infiltrates, pleural effusions, felt to be partly related to congestive heart failure; however, he underwent a left thoracotomy and surgical lung biopsy that was nondiagnostic in September and has had some ongoing wound dehiscence with poor wound healing on the left side chest and currently has a wound VAC in place. Recently hospitalized for worsening similar complaints, was discharged home on antibiotics and diuresis. The patient has increasing shortness of breath, checked his oximetry at home and noted on his 2 liters nasal cannula, oxygen saturation is were in the 80s, presented to [facility] and subsequently placed on BiPAP, for refractory hypoxemia and respiratory failure and transferred here for further management. Of note, he was also hypercapnic with a PaCO2 in the 60s, but appeared decompensated on BiPAP at that time, chest x-ray, there again showed the bilateral chronic pleural effusions and some diffuse infiltrates. CT scan was not performed, most recent CT was done in the early October at [facility], which revealed mediastinal lymphadenopathy and some chronic loculated bilateral pleural effusions that were small. Currently he has had some ongoing as mentioned, cough, unable to clear sputum. ALLERGIES: Include AVANDIA. PAST MEDICAL HISTORY: 1. History of persistent ground glass pulmonary infiltrates and pleural effusions status post left thoracotomy with surgical lung biopsy as described in HPI September of this year that is nondiagnostic after review by [facility], may have been due to inadequate specimen by the report. 2. Persistent mediastinal lymphadenopathy. 3. History of diastolic congestive heart failure. [address] [address] CONSULTATION Name: LAVERN LOWRY Room #: 236-P [facility] IN .R.#: [id number] Admission: 12/31/16 Attend Phys: Ayaan Ng Discharge: Date of : 50 Report #: [id number] 4. Atherosclerotic coronary artery disease. 5. Diabetes mellitus type 2. 6. Hypertension. 7. Hypothyroidism. 8. Hyperlipidemia. 9. Peripheral vascular disease status post right leg femoral popliteal artery bypass. 10. History of right carotid endarterectomy. SOCIAL HISTORY: The patient is an ex-smoker. No significant alcohol consumption. Has been living independently. FAMILY HISTORY: Negative for any significant pulmonary disease. OUTPATIENT MEDICATIONS: 1. Include prednisone 10 mg daily. 2. Keflex. 3. Ambien p.r.n. 4. DuoNeb q. 6 hours. 5. Tylenol p.r.n. 6. Flonase, Pepcid 20 mg twice daily, metoprolol 50 mg twice daily, amlodipine 10 mg daily, gabapentin 300 mg t.i.d. REVIEW OF SYSTEMS: CONSTITUTIONAL: Denies any fevers, chills or sweats. ENT: No upper respiratory congestion, rhinorrhea or dysphagia noted. CARDIOVASCULAR: Known history of coronary artery disease and peripheral vascular disease. Denies any chest pain or palpitations. GASTROINTESTINAL: Denies any nausea, vomiting, diarrhea, constipation or abdominal pain, hematemesis, hematochezia. GENITOURINARY: No dysuria, no frequency or hematuria. INTEGUMENT: Denies any new rash. MUSCULOSKELETAL: Has some increased lower extremity edema reported. No new arthralgias reported. PHYSICAL EXAMINATION: VITAL SIGNS: Afebrile, pulse 60, respiratory rate 20, blood pressure 119/48, oxygen saturation 99% on 6 liters nasal cannula at this time. GENERAL: This is an elderly male, alert, speaking full sentences, in no distress. HEENT: Somewhat dry oropharynx, some dental loss, Mallampati 2 airway. NECK: Supple. No lymphadenopathy. Jugular venous pressure does not appear significantly elevated. LUNGS: diffuse coarse expiratory rhonchi noted throughout with some scattered inspiratory crackles. CARDIOVASCULAR: Heart was regular, I could not appreciate any murmurs or [facility] [address] [place] [address] CONSULTATION Name: LAVERN LOWRY Room #: 236-P [facility] IN M..#: [id number] Admission: 12/31/16 Attend Phys: Ayaan Ng Discharge: Date of : 50 Report #: [id number] gallops. ABDOMEN: Soft, nontender. There are no masses or hepatolienomegaly appreciated. EXTREMITIES: Revealed some chronic venous stasis changes of the lower extremities with 2+ left greater than right, bilateral lower extremity edema with only minimal upper extremity edema. Peripheral pulses were strong in the radial artery somewhat diminished in the dorsalis pedis and posterior tibial pulses. LABORATORY DATA: White blood cell count 6.7, hemoglobin 8.6, hematocrit 27, platelet count 130. Sodium 136, potassium 5.4, chloride 97, bicarbonate 32, BUN is 163, creatinine 3.3, glucose 386, albumin 2.3. Liver enzymes normal. Arterial blood gases at this institution not performed. IMAGING STUDIES: Here not performed yet. IMPRESSION: 1. Persistent pulmonary infiltrates of unclear etiology, has had elevated CRP in the past, most recent sedimentation rate normal, failing outpatient therapy with antibiotics given his congestive cough, would be concerned about a lower respiratory infection, consider further imaging with CT and compared to prior may require further workup again with possible fiberoptic bronchoscopy with biopsies, possibly even an endobronchial ultrasound to sample mediastinal lymph nodes, would collect sputum for cultures and blood cultures at this time and ask infectious disease service to reevaluate patient from either from Dr. Cristian Hopson. 2. Hypoxemic respiratory failure, acute on chronic, seems to be doing better with current therapy. 3. Acute on chronic hypercapnic respiratory failure. The patient is not on any nocturnal positive pressure ventilation, might consider nocturnal BiPAP for further evaluation to see should be of benefit. 4. Acute renal failure appears to be prerenal based on laboratories last infection, Nephrology to further evaluate. 5. Coronary artery disease. 6. History of hypertension. 7. Diabetes mellitus type 2. 8. Anemia. SUGGESTIONS: As outlined above, sputum and blood cultures. We will add IPV for airway clearance in addition a flutter valve. CT imaging of the chest. No contrast, lower extremity venous Dopplers, consider repeat echocardiogram to evaluate for any signs of right ventricular dysfunction associated with possible acute pulmonary embolism, patient not eligible for IV conscious for CT of the chest at this time due to acute renal failure, but consider ventilation perfusion scan. Additional recommendations to follow. [facility] [address] [place] [address] CONSULTATION Name: LAVERN LOWRY Room #: 236-P ADM IN M.R.#: [id number] Admission: 12/31/16 Attend Phys: Ayaan Ng Discharge: Date of : 50 Report #: [id number] Total critical care time 40 minutes, not including procedures. Discussed with the patient and respiratory therapy, and nursing. <ELECTRONICALLY SIGNED> By: Jake Jackson MD 01/05/17 1133 0747 1021 Jake Jackson MD /nt
--- NOTE | ~2016-12-31 | HC ---
[facility] [place] [address] CONSULTATION Name: LAVERN LOWRY Room #: 246-P [facility] IN M.R.#: [id number] Admission: 12/31/16 Attend Phys: Ayaan Ng Discharge: Date of : 50 Report #: [id number] THIS REPORT FOR: //name// CC: SELENA Hampton REASON FOR CONSULTATION: I was asked to evaluate concerning cough and left chest wound. HISTORY OF PRESENT ILLNESS: The patient is a 66-year-old with presentation of cough and shortness of breath that occurred relatively quickly in the last 24 hours. He has had cough with minimal sputum production. He has been treated for recurrent congestive heart failure. Evaluated in August where he had a loculated pleural effusion on the left. This was suspected organizing hemothorax. He underwent a right thoracotomy with decortication. Subsequently, developed infection at that site, which required further irrigation and debridement of the left chest wound. The wound was left open with a Hemovac in place. Cultures remain negative. He was treated with broad antibiotic coverage including ceftriaxone for an extended period of time. He has been hospitalized subsequently with respiratory compromise and edema. Was actually dismissed on 12/27 where his cultures had revealed normal kevin. He was on cephalexin prior to his acute presentation now. No fever, chills or sweats. No nausea, vomiting, diarrhea, dysuria or frequency. REVIEW OF SYSTEMS: Otherwise, unremarkable. ALLERGIES: AVANDIA. MEDICATIONS: As noted on his SEP, which were reviewed. Now off antibiotics. PAST MEDICAL HISTORY, FAMILY HISTORY AND SOCIAL HISTORY: Unchanged from his previous consultations. PHYSICAL EXAMINATION: VITAL SIGNS: He is afebrile, hemodynamically stable. GENERAL: He was alert and cooperative, on 6 liters of oxygen per nasal cannula. He had intermittent nonproductive cough. HEENT: Unremarkable. CHEST: Coarse throughout. Left chest wound with a wound VAC in place. HEART: Regular. ABDOMEN: Soft and nontender. EXTREMITIES: Minimal peripheral edema. LABORATORY STUDIES: BNP was 1612. Ultrasound of the lower extremities was negative for DVT. Hemoglobin 8.6, white count 6.7 and platelet count 130,000. Differential unremarkable. Sodium 136, potassium 5.4, bicarbonate of 32 and creatinine 3.3. [address] [address] CONSULTATION Name: LAVERN LOWRY Room #: 246-P [facility] IN .R.#: [id number] Admission: 12/31/16 Attend Phys: Ayaan Ng Discharge: Date of : 50 Report #: [id number] Liver function tests normal. ABG on 6 liters showed a pO2 of 73, pCO2 of 53, pH 7.36 and lactate 1.2. IMPRESSION AND PLAN: 1. Acute renal failure with pulmonary edema: He has a bronchitic cough, but I do not think this is pneumonia with no fever and no leukocytosis. His chest x-ray performed at the outside hospital showed bilateral pleural effusions and pulmonary vascular congestion. I would recommend observation off antibiotics pending cultures. Obtain sputum culture and continue with diuresis as outlined by Nephrology. Follow his creatinine. We will reevaluate his left chest wound at the time of his next dressing change. <ELECTRONICALLY SIGNED> By: Cristian Hopson MD 01/02/17 0807 1127 0059 Cristian Hopson MD /nt
--- NOTE | ~2016-12-31 | HC ---
[facility] [place] [address] CONSULTATION Name: LAVERN LOWRY Room #: 236-P [facility] IN M.R.#: [id number] Admission: 12/31/16 Attend Phys: Ayaan Ng Discharge: Date of : 50 Report #: [id number] THIS REPORT FOR: //name// CC: Ayaan HU DATE OF SERVICE: 01/02/2017 HISTORY OF PRESENT ILLNESS: This is a 66-year-old male patient whom we have followed on the wound care service in the past. He has a history of surgical wound to the left posterior chest wall secondary to previous thoracotomy and tube thoracostomies. He has been recently readmitted with increasing shortness of breath. We have been asked to see him with regard to ongoing wound care. The patient is sitting up in a chair. He is conversant and appears to be in no acute distress at this time. The patient's past medical history with acute renal failure, history of previous thoracotomy, previous pleural effusion that led to pleurodesis and subsequent thoracotomy and chest tube placement. He has been managed with a wound VAC in the past, had developed some increasing slough and was managed with topical Dakin solution recently. He denies any significant pain in those areas at this time. PAST MEDICAL HISTORY: Positive for acute renal failure, hyperkalemia, history of thoracotomy. ALLERGIES: Include AVANDIA. MEDICATIONS: Include cephalexin, zolpidem, prednisone, DuoNeb, Flonase nasal spray, Pepcid, Lopressor, amlodipine, Neurontin, insulin, Lasix, spironolactone, losartan. FAMILY HISTORY: Positive for heart disease and diabetes. SOCIAL HISTORY: The patient is a former smoker. REVIEW OF SYSTEMS: CONSTITUTIONAL: The patient denies fevers or chills. ENT: The patient . CARDIOVASCULAR: The patient complains of mild shortness of breath. Denies cough, sputum production. GASTROINTESTINAL: Denies nausea and abdominal pain. ORTHOPEDIC AND SKIN: The patient is aware of the surgical wounds to his left hemithorax. Other systems are negative. PHYSICAL EXAMINATION: VITAL SIGNS: At this time include temperature 97.9, pulse 56, respiration is 16, blood pressure 120/55. [facility] [address] [place] [address] CONSULTATION Name: LAVERN LOWRY Room #: 236-P [facility] IN [facility].#: [id number] Admission: 12/31/16 Attend Phys: Ayaan Ng Discharge: Date of : 50 Report #: [id number] GENERAL: This is a chronically ill-appearing male patient who appears to be in no distress. HEENT: Head normocephalic. NECK: Supple. LUNGS: Diminished. ABDOMEN: Obese, nontender. Examination of the left posterior and lateral thorax demonstrates two distinct surgical wounds, the most inferior of which is horizontally opposed with minimal undermining. Please see wound care nursing notes for specific measurements. The base is relatively clean and granulating. There is a little bit of serous drainage noted at this time. He does not appear to be overtly infected. The larger surgical wound more towards midline and superior to the other surgical wound is a bit larger. There is undermining and tunneling. I am able to see into the pleural space at the very depth. There is a mix of fibrin and granulation tissue with approximately 30% of the wound surface being covered with fibrin. There is ____ serous drainage, no odor and does not overtly infected. CLINICAL IMPRESSION: Surgical wounds to the left posterior and lateral chest wall, status post thoracotomy. RECOMMENDATION: At this point in time, we will resume wound VAC. We will use a silver foam based dressing were placed at 125 mmHg on continuous setting. We will place a Vaseline gauze in the area that were ____ able to be seen in the depth of the larger wound in order to protect those areas from the foam itself. We will change the dressing Monday, Monday, Monday and as needed. We will continue to follow the patient here in the hospital. I appreciate being asked to see him in consultation. <ELECTRONICALLY SIGNED> By: Donaldo Thibodeaux MD 01/04/17 1756 1152 2328 Donaldo Thibodeaux MD /nt
--- NOTE | ~2016-12-31 | O ---
[facility] [place] [address] OPERATIVE REPORT Name: LAVERN LOWRY Room #: 236-P [facility] IN M.R.#: [id number] Admission: 12/31/16 Attend Phys: Ayaan Ng Discharge: Date of : 50 Report #: [id number] THIS REPORT FOR: //name// CC: Ayaan HU CLINICAL HISTORY: This 66-year-old white male who was admitted with pneumonia and respiratory failure. The patient now is more obtunded, hypoxic in need for emergent intubation. DESCRIPTION OF PROCEDURE: The patient was given Diprivan for sedation. A GlideScope was utilized to evaluate the upper airway. The vocal cords were seen. A 7.5 ET tube was then introduced through the vocal cords. There was some resistance. GlideScope and ET tube was then withdrawn. The patient was then again bagged to maintain adequate saturation with each bagging, saturation did improve to low 90%. Then, a curved blade laryngoscope was then used. The vocal cords were again visualized. ET tube was then placed above the vocal cords. I again experienced resistance. Laryngoscope and ET tube was then withdrawn and patient was again bagged. A flexible fiberoptic bronchoscope was then introduced to the right naris without difficulty. The vocal cords were visualized. The upper airway appears to be patent without evidence of tracheal stenosis or granulation tissue. A third attempt with a MAC curved blade was used. The ET tube was then introduced with some resistance. The ET tube was secured at approximately 23 cm at the lip. The Capnograph suggests ET tube in the airway. Portable chest x-ray is pending. Flexible Bronchoscopy CLINICAL HISTORY: A 66-year-old white male with acute respiratory failure. Attempts to intubate was difficult with some resistance right below the vocal cord when the ET tube was introduced. A emergent bronchoscopy was performed. DESCRIPTION OF PROCEDURE: Flexible fiberoptic bronchoscope was introduced to the right naris without difficulty. The vocal cords were visualized. The trachea and distal trachea was grossly unremarkable other than mucus secretions seen in the distal trachea. Sidra was unremarkable. The right and left main stem bronchus were grossly unremarkable. No biopsy or suction was performed as this was emergent bronchoscope to examine the airway to rule out endobronchial obstruction. Vital signs and saturation were adequate with saturation in the low 90s or 80% [address] [address] OPERATIVE REPORT Name: LOWRYLAVERN Room #: 236-P [facility] IN ..#: [id number] Admission: 12/31/16 Attend Phys: Ayaan Ng Discharge: Date of : 50 Report #: [id number] with bagging in between the procedures. POSTOPERATIVE DIAGNOSIS: Normal airways. No evidence of tracheal obstruction. No complications noted. <ELECTRONICALLY SIGNED> By: Eriberto Manuel MD 01/05/17 1638 0902 1328 Eriberto Manuel MD /inge
--- NOTE | ~2016-12-31 | EKG ---
[address] [address] ELECTROCARDIOGRAM REPORT Name: LAVERN LOWRY Room #: 236-P ADM IN M.R.#: [id number] Admission: 12/31/16 Attend Phys: Ayaan Ng Discharge: Date of : 50 Report #: [id number] THIS REPORT FOR: //name// [facility] Test Date: 2017-01-05 Test Time: 10:26:37 Pat Name: LAVERN LOWRY Department: Room: 236 P Gender: M Tamper Operator: Usman AUGUST : 1950 Requested By: Eriberto Manuel Order Number: [id number] MD: Miguel Swan Measurements Intervals [place] Rate: 49 P: 26 AK: 130 QRS: 16 QRSD: 94 T: 70 QT: 487 QTc: 440 Interpretive Statements Sinus bradycardia Compared to ECG 12/25/2016 02:32:08 Sinus rhythm no longer present Left ventricular hypertrophy no longer present Early repolarization no longer present Electronically Signed On 01-05-2017 14:40:28 CDT by Miguel Swan [email or web address] <ELECTRONICALLY SIGNED> By: Miguel Swan MD 01/05/17 1440 1026 1026 Miguel Swan MD /TIARA
[~2016-12-31 16:57] MED LIST changes: +KEFLEX500 MG PO; +PREDNISONE10 MG PO
[2017-01-01] VITALS (23 sets, daily range): BP systolic 99–142; BP diastolic 48–64
[2017-01-01] MEDS ORDERED: ALDACTONE50 MG PO (01:34)
[2017-01-01 01:47] LABS: ABSOLUTE NEUTROPHILS 4.6 thou/uL (1.4-8.2); BASOPHILS 0.2 % (0.0-2.0); EOSINOPHILS 0.1 % (0.0-3.0); HEMATOCRIT 26.6 % (42.0-52.0); HEMOGLOBIN 8.6 gm/dL (14.0-18.0); LYMPHOCYTES 22.6 % (24.0-44.0); MCHC 32.6 g/dL (28.0-37.0); MCV 95.1 fL (80.0-100.0); MONOCYTES 7.7 % (1.0-8.0); PLATELET COUNT 130 thou/uL (150-400); POLYS 69.4 % (36.0-66.0); RBC 2.79 mil/uL (4.50-6.00); RDW 20.8 % (10.5-14.5); WBC 6.7 thou/uL (4.0-11.0)
[2017-01-01 01:51] LABS: MANUAL DIFF NO
[2017-01-01 02:00] LABS: ALBUMIN 2.3 g/dL (3.4-5.0); CALCIUM 8.5 mg/dL (8.5-10.1); CREATININE 3.3 mg/dL (0.7-1.3); POTASSIUM 5.4 mmol/L (3.5-5.1); TOTAL BILIRUBIN 0.3 mg/dL (<0.1-1.0); TOTAL PROTEIN 6.2 g/dL (6.4-8.2); TROPONIN-I 0.04 ng/mL (<0.04-0.07)
[2017-01-01 07:53] LABS: ABG SAMPLE TYPE ARTERIAL; BE(vivo) 3.6 mmol/L (-2 to +3); HCO3 29.8 mmol/L (22.0-26.0); LACTATE 1.24 mmol/L (0.5-2.0); O2(CT) 12.7 mL/dL (15.0-23.0); O2Hb 91.7 % (92.0-98.0); PCO2 53.8 mmHg (35.0-45.0); PO2 73.7 mmHg (80.0-100.0); pH 7.361 (7.360-7.450); sO2 94.1 % (92.0-98.0); tCO2 31.4 mmol/L (24.0-30.0)
[2017-01-01 07:54] LABS: STICK SITE R.RADIAL
[2017-01-01 12:10] LABS: URINE BILIRUBIN NEGATIVE (Negative); URINE BLOOD TRACE (Negative); URINE COLOR YELLOW; URINE GLUCOSE-RANDOM* NEGATIVE (Negative); URINE KETONES NEGATIVE (Negative); URINE LEUKOCYTES-REFLEX NEGATIVE (Negative); URINE PROTEIN (DIPSTICK) NEGATIVE (Negative); URINE SPECIFIC GRAVITY <= 1.005 (1.003-1.035); URINE UROBILINOGEN 0.2 E.U./dl (0.2-1.0)
[2017-01-02] VITALS (18 sets, daily range): BP systolic 110–137; BP diastolic 53–96
[2017-01-02 05:32] LABS: ABG SAMPLE TYPE ARTERIAL; HCO3 37.2 mmol/L (22.0-26.0); LACTATE 0.62 mmol/L (0.5-2.0); O2(CT) 13.2 mL/dL (15.0-23.0); O2Hb 96.4 % (92.0-98.0); PCO2 76.5 mmHg (35.0-45.0); PO2 115.6 mmHg (80.0-100.0); STICK SITE L.BRACHIAL; pH 7.305 (7.360-7.450); sO2 97.6 % (92.0-98.0); tCO2 39.6 mmol/L (24.0-30.0)
[2017-01-02 05:55] LABS: ABSOLUTE NEUTROPHILS 2.7 thou/uL (1.4-8.2); BASOPHILS 0.9 % (0.0-2.0); EOSINOPHILS 1.5 % (0.0-3.0); HEMATOCRIT 24.6 % (42.0-52.0); HEMOGLOBIN 8.2 gm/dL (14.0-18.0); MCH 31.2 pg (26.0-34.0); MCHC 33.5 g/dL (28.0-37.0); MCV 93.2 fL (80.0-100.0); MONOCYTES 8.7 % (1.0-8.0); PLATELET COUNT 124 thou/uL (150-400); POLYS 60.9 % (36.0-66.0); RBC 2.63 mil/uL (4.50-6.00); RDW 21.1 % (10.5-14.5); WBC 4.5 thou/uL (4.0-11.0)
[2017-01-02 05:56] LABS: MANUAL DIFF NO
[2017-01-02 06:17] LABS: ALBUMIN 1.9 g/dL (3.4-5.0); CALCIUM 8.5 mg/dL (8.5-10.1); PHOSPHORUS 3.9 mg/dL (2.5-4.9); POTASSIUM 4.9 mmol/L (3.5-5.1)
[2017-01-02 06:19] LABS: CREATININE 1.7 mg/dL (0.7-1.3)
[2017-01-02 08:08] LABS: ABG SAMPLE TYPE ARTERIAL; BE(vivo) 8.6 mmol/L (-2 to +3); HCO3 35.7 mmol/L (22.0-26.0); LACTATE 0.66 mmol/L (0.5-2.0); O2Hb 93.9 % (92.0-98.0); PO2 84.8 mmHg (80.0-100.0); pH 7.346 (7.360-7.450); sO2 95.5 % (92.0-98.0); tCO2 37.8 mmol/L (24.0-30.0)
[2017-01-02 08:09] LABS: PCO2 66.8 mmHg (35.0-45.0); Pressure Support 6 cm H20; STICK SITE R.RADIAL
[2017-01-02 11:11] LABS: URINE CREATININE-RANDOM* 35.6 mg/dL (Not Estab.)
[2017-01-03] VITALS (17 sets, daily range): BP systolic 83–198; BP diastolic 30–150
[2017-01-03 05:33] LABS: HEMATOCRIT 24.5 % (42.0-52.0); HEMOGLOBIN 8.1 gm/dL (14.0-18.0); MCH 31.4 pg (26.0-34.0); MCHC 33.1 g/dL (28.0-37.0); RBC 2.58 mil/uL (4.50-6.00); RDW 20.9 % (10.5-14.5); WBC 5.3 thou/uL (4.0-11.0)
[2017-01-03 05:44] LABS: CALCIUM 8.5 mg/dL (8.5-10.1); CREATININE 1.8 mg/dL (0.7-1.3); PHOSPHORUS 3.4 mg/dL (2.5-4.9); POTASSIUM 5.8 mmol/L (3.5-5.1)
[2017-01-03 17:37] LABS: ANION GAP < 0 mmol/L (7-16); BUN 78 mg/dL (7-18); CHLORIDE 103 mmol/L (98-107); CO2 37 mmol/L (21-32); CREATININE 1.9 mg/dL (0.7-1.3); GLUCOSE 243 mg/dL (74-106); POTASSIUM 5.5 mmol/L (3.5-5.1); SODIUM 139 mmol/L (136-145)
[2017-01-04] VITALS (47 sets, daily range): BP systolic 100–160; BP diastolic 47–114
[2017-01-04 03:14] LABS: HEMATOCRIT 22.2 % (42.0-52.0); HEMOGLOBIN 7.3 gm/dL (14.0-18.0); MCH 31.3 pg (26.0-34.0); MCHC 32.9 g/dL (28.0-37.0); RBC 2.34 mil/uL (4.50-6.00); RDW 21.1 % (10.5-14.5); WBC 5.1 thou/uL (4.0-11.0)
[2017-01-04 03:31] LABS: ALBUMIN 1.9 g/dL (3.4-5.0); CREATININE 2.1 mg/dL (0.7-1.3); POTASSIUM 5.2 mmol/L (3.5-5.1)
[2017-01-04 05:32] LABS: ABG SAMPLE TYPE ARTERIAL; BE(vivo) 6.7 mmol/L (-2 to +3); HCO3 36.6 mmol/L (22.0-26.0); LACTATE 0.67 mmol/L (0.5-2.0); O2(CT) 11.1 mL/dL (15.0-23.0); O2Hb 93.5 % (92.0-98.0); PO2 90.6 mmHg (80.0-100.0); sO2 94.1 % (92.0-98.0); tCO2 39.7 mmol/L (24.0-30.0)
[2017-01-04 05:36] LABS: PCO2 99.5 mmHg (35.0-45.0); pH 7.184 (7.360-7.450)
[2017-01-04 07:40] LABS: ABG SAMPLE TYPE ARTERIAL; BE(vivo) 9.5 mmol/L (-2 to +3); HCO3 37.7 mmol/L (22.0-26.0); LACTATE 0.69 mmol/L (0.5-2.0); O2Hb 85.2 % (92.0-98.0); PCO2 79.8 mmHg (35.0-45.0); PO2 55.4 mmHg (80.0-100.0); STICK SITE R.RADIAL; pH 7.292 (7.360-7.450); sO2 83.7 % (92.0-98.0); tCO2 40.1 mmol/L (24.0-30.0)
[2017-01-04 07:41] LABS: ABG COMMENT BIPAP 16/6 R20
[2017-01-04 16:21] LABS: HEMATOCRIT 22.4 % (42.0-52.0); HEMOGLOBIN 7.4 gm/dL (14.0-18.0); MCH 31.3 pg (26.0-34.0); MCHC 33.2 g/dL (28.0-37.0); MCV 94.2 fL (80.0-100.0); RBC 2.38 mil/uL (4.50-6.00); RDW 20.5 % (10.5-14.5); WBC 5.7 thou/uL (4.0-11.0)
[2017-01-04 16:28] LABS: CALCIUM 8.7 mg/dL (8.5-10.1); CREATININE 1.8 mg/dL (0.7-1.3); POTASSIUM 4.8 mmol/L (3.5-5.1)
[2017-01-05] VITALS (93 sets, daily range): BP systolic 60–160; BP diastolic 17–120
[2017-01-05 03:14] LABS: ABG SAMPLE TYPE ARTERIAL; BE(vivo) 4.9 mmol/L (-2 to +3); O2(CT) 10.1 mL/dL (15.0-23.0); O2Hb 85.7 % (92.0-98.0); PCO2 85.9 mmHg (35.0-45.0); PO2 61.8 mmHg (80.0-100.0); STICK SITE LRA; pH 7.215 (7.360-7.450); sO2 85.2 % (92.0-98.0); tCO2 36.6 mmol/L (24.0-30.0)
[2017-01-05 03:15] LABS: ABG COMMENT BIPAP 18/6 20 100%; Pressure Support 18 cm H20
[2017-01-05 04:09] LABS: HEMATOCRIT 21.7 % (42.0-52.0); MCH 31.1 pg (26.0-34.0); MCHC 32.3 g/dL (28.0-37.0); MCV 96.3 fL (80.0-100.0); RBC 2.25 mil/uL (4.50-6.00); RDW 20.6 % (10.5-14.5)
[2017-01-05 04:19] LABS: ALBUMIN 1.8 g/dL (3.4-5.0); CALCIUM 8.6 mg/dL (8.5-10.1); CREATININE 1.8 mg/dL (0.7-1.3); POTASSIUM 5.1 mmol/L (3.5-5.1)
[2017-01-05 07:15] LABS: ABG SAMPLE TYPE ARTERIAL; BE(vivo) 2.9 mmol/L (-2 to +3); HCO3 32.4 mmol/L (22.0-26.0); LACTATE 2.17 mmol/L (0.5-2.0); O2(CT) 9.6 mL/dL (15.0-23.0); PO2 61.1 mmHg (80.0-100.0); tCO2 35.2 mmol/L (24.0-30.0)
[2017-01-05 07:16] LABS: O2Hb 84.9 % (92.0-98.0); PCO2 90.9 mmHg (35.0-45.0); Pressure Support 18 cm H20; STICK SITE R.RADIAL
[2017-01-05 09:27] LABS: ABG SAMPLE TYPE ARTERIAL; BE(vivo) 0.6 mmol/L (-2 to +3); LACTATE 2.42 mmol/L (0.5-2.0); O2(CT) 11.6 mL/dL (15.0-23.0); PCO2 85.4 mmHg (35.0-45.0); PO2 224.6 mmHg (80.0-100.0); pH 7.163 (7.360-7.450); sO2 99.2 % (92.0-98.0); tCO2 32.6 mmol/L (24.0-30.0)
[2017-01-05 09:28] LABS: STICK SITE R.RADIAL; TIDAL VOLUME 650 ml
[2017-01-05 10:36] LABS: CREATININE 1.8 mg/dL (0.7-1.3); POTASSIUM 5.3 mmol/L (3.5-5.1)
[2017-01-05 10:44] LABS: MAGNESIUM 2.4 mg/dL (1.8-2.4); TROPONIN-I 0.07 ng/mL (<0.04-0.07)
[2017-01-05 11:18] LABS: ABG SAMPLE TYPE ARTERIAL; BE(vivo) 2.7 mmol/L (-2 to +3); HCO3 31.4 mmol/L (22.0-26.0); LACTATE 1.91 mmol/L (0.5-2.0); O2(CT) 12.3 mL/dL (15.0-23.0); O2Hb 98.4 % (92.0-98.0); PCO2 79.5 mmHg (35.0-45.0); PO2 311.9 mmHg (80.0-100.0); STICK SITE R.RADIAL; pH 7.215 (7.360-7.450); sO2 99.6 % (92.0-98.0); tCO2 33.9 mmol/L (24.0-30.0)
[2017-01-05 11:20] LABS: Pressure Support 22 cm H20
[2017-01-05 13:50] LABS: ABG SAMPLE TYPE ARTERIAL; BE(vivo) 3.5 mmol/L (-2 to +3); HCO3 31.1 mmol/L (22.0-26.0); O2(CT) 12.7 mL/dL (15.0-23.0); PO2 134.6 mmHg (80.0-100.0); STICK SITE R.RADIAL; pH 7.291 (7.360-7.450); sO2 98.3 % (92.0-98.0); tCO2 33.1 mmol/L (24.0-30.0)
[2017-01-05 13:51] LABS: Pressure Support 24 cm H20
[2017-01-06] VITALS (36 sets, daily range): BP systolic 79–145; BP diastolic 46–84
[2017-01-06 04:51] LABS: HEMATOCRIT 21.3 % (42.0-52.0); HEMOGLOBIN 7.3 gm/dL (14.0-18.0); MCH 31.2 pg (26.0-34.0); MCHC 34.2 g/dL (28.0-37.0); RBC 2.33 mil/uL (4.50-6.00); RDW 19.1 % (10.5-14.5); WBC 6.7 thou/uL (4.0-11.0)
[2017-01-06 04:57] LABS: MCV 91.3 fL (80.0-100.0)
[2017-01-06 05:00] LABS: ALBUMIN 1.5 g/dL (3.4-5.0); CALCIUM 8.4 mg/dL (8.5-10.1); CREATININE 1.7 mg/dL (0.7-1.3); PHOSPHORUS 3.2 mg/dL (2.5-4.9); POTASSIUM 4.1 mmol/L (3.5-5.1)
[2017-01-06 10:51] LABS: ABG SAMPLE TYPE ARTERIAL; BE(vivo) 9.5 mmol/L (-2 to +3); HCO3 33.8 mmol/L (22.0-26.0); LACTATE 1.02 mmol/L (0.5-2.0); O2(CT) 11.8 mL/dL (15.0-23.0); PCO2 45.7 mmHg (35.0-45.0); STICK SITE L.BRACHIAL; pH 7.487 (7.360-7.450); sO2 98.1 % (92.0-98.0); tCO2 35.2 mmol/L (24.0-30.0)
[2017-01-06 10:52] LABS: ABG COMMENT PC 30/8 F26; Pressure Support 22 cm H20
[2017-01-07] VITALS (26 sets, daily range): BP systolic 107–168; BP diastolic 48–81
[2017-01-07 05:35] LABS: ABG SAMPLE TYPE ARTERIAL; HCO3 34.6 mmol/L (22.0-26.0); LACTATE 1.28 mmol/L (0.5-2.0); O2(CT) 12.1 mL/dL (15.0-23.0); O2Hb 97.4 % (92.0-98.0); PCO2 47.6 mmHg (35.0-45.0); PO2 141.8 mmHg (80.0-100.0); pH 7.479 (7.360-7.450); sO2 98.9 % (92.0-98.0)
[2017-01-07 05:36] LABS: STICK SITE L.RADIAL; TIDAL VOLUME 400 ml
[2017-01-07 06:18] LABS: HEMOGLOBIN 7.5 gm/dL (14.0-18.0); MCH 31.5 pg (26.0-34.0); MCV 92.6 fL (80.0-100.0); PLATELET COUNT 157 thou/uL (150-400); RBC 2.37 mil/uL (4.50-6.00); WBC 4.9 thou/uL (4.0-11.0)
[2017-01-07 06:20] LABS: MANUAL DIFF YES
[2017-01-07 06:34] LABS: ALBUMIN 1.5 g/dL (3.4-5.0); CALCIUM 8.6 mg/dL (8.5-10.1); CREATININE 1.5 mg/dL (0.7-1.3); POTASSIUM 3.4 mmol/L (3.5-5.1); TOTAL BILIRUBIN 0.7 mg/dL (<0.1-1.0); TOTAL PROTEIN 5.3 g/dL (6.4-8.2)
[2017-01-07 08:59] LABS: ANISOCYTOSIS SLIGHT; MYELOCYTES 1 %; NUCLEATED RBCS 2 /100WBC; POIKILOCYTOSIS SLIGHT; TOTAL CELL COUNT 100
[2017-01-07 09:03] LABS: OVALOCYTES OCCASIONAL
[2017-01-08] VITALS (24 sets, daily range): BP systolic 97–160; BP diastolic 51–87
[2017-01-08 04:34] LABS: ALBUMIN 1.7 g/dL (3.4-5.0); CALCIUM 9.1 mg/dL (8.5-10.1); CREATININE 1.3 mg/dL (0.7-1.3); PHOSPHORUS 3.5 mg/dL (2.5-4.9)
[2017-01-08 04:52] LABS: POTASSIUM 4.6 mmol/L (3.5-5.1)
[2017-01-09] VITALS (24 sets, daily range): BP systolic 115–158; BP diastolic 55–87
[2017-01-09 06:10] LABS: HEMATOCRIT 23.4 % (42.0-52.0); MCH 31.1 pg (26.0-34.0); MCHC 34.1 g/dL (28.0-37.0); PLATELET COUNT 198 thou/uL (150-400); RBC 2.57 mil/uL (4.50-6.00); RDW 19.4 % (10.5-14.5); WBC 8.4 thou/uL (4.0-11.0)
[2017-01-09 06:19] LABS: ALBUMIN 1.7 g/dL (3.4-5.0); CALCIUM 8.4 mg/dL (8.5-10.1); CREATININE 1.4 mg/dL (0.7-1.3); MAGNESIUM 1.8 mg/dL (1.8-2.4); PHOSPHORUS 2.8 mg/dL (2.5-4.9); POTASSIUM 4.2 mmol/L (3.5-5.1)
[2017-01-09 06:20] LABS: MANUAL DIFF YES
[2017-01-09 08:01] LABS: ABSOLUTE NEUTROPHILS 5.8 thou/uL (1.4-8.2); ANISOCYTOSIS 2+; METAMYELOCYTES 2 %; MYELOCYTES 1 %; POLYCHROMASIA OCCASIONAL; TOTAL CELL COUNT 100
[2017-01-09 09:37] LABS: ABG SAMPLE TYPE ARTERIAL; BE(vivo) 11.2 mmol/L (-2 to +3); HCO3 36.6 mmol/L (22.0-26.0); O2(CT) 16.5 mL/dL (15.0-23.0); PCO2 51.3 mmHg (35.0-45.0); PO2 82.7 mmHg (80.0-100.0); pH 7.471 (7.360-7.450); sO2 96.6 % (92.0-98.0); tCO2 38.2 mmol/L (24.0-30.0)
[2017-01-09 09:39] LABS: Pressure Support 8 cm H20; STICK SITE R.RADIAL
[2017-01-10] VITALS (14 sets, daily range): BP systolic 112–161; BP diastolic 40–70
[2017-01-10 04:52] LABS: ALBUMIN 1.8 g/dL (3.4-5.0); CALCIUM 8.3 mg/dL (8.5-10.1); CREATININE 1.3 mg/dL (0.7-1.3); PHOSPHORUS 3.8 mg/dL (2.5-4.9); POTASSIUM 4.2 mmol/L (3.5-5.1)
[2017-01-11 03:12] VITALS: BP 143/65
[2017-01-11 06:34] LABS: HEMATOCRIT 28.7 % (42.0-52.0); HEMOGLOBIN 9.7 gm/dL (14.0-18.0); MCH 31.3 pg (26.0-34.0); MCHC 33.7 g/dL (28.0-37.0); RBC 3.08 mil/uL (4.50-6.00); RDW 20.1 % (10.5-14.5); WBC 8.9 thou/uL (4.0-11.0)
[2017-01-11 06:49] LABS: CALCIUM 8.2 mg/dL (8.5-10.1); CREATININE 1.5 mg/dL (0.7-1.3); PHOSPHORUS 3.8 mg/dL (2.5-4.9); POTASSIUM 3.7 mmol/L (3.5-5.1)
[2017-01-11 07:33] LABS: ABG SAMPLE TYPE ARTERIAL; BE(vivo) 9.7 mmol/L (-2 to +3); HCO3 35.5 mmol/L (22.0-26.0); LACTATE 0.94 mmol/L (0.5-2.0); O2(CT) 15.1 mL/dL (15.0-23.0); O2Hb 98.1 % (92.0-98.0); PCO2 54.8 mmHg (35.0-45.0); PO2 190.1 mmHg (80.0-100.0); pH 7.429 (7.360-7.450); sO2 99.3 % (92.0-98.0); tCO2 37.2 mmol/L (24.0-30.0)
[2017-01-11 07:34] LABS: STICK SITE R.BRACHIAL
[2017-01-11 08:00] VITALS: BP 137/53
[2017-01-11] MEDS ORDERED: TRANSDERM-SCO1 PATC1 TRANSDERM (12:03)
[2017-01-11] MEDS ORDERED: MERREM1 GM IV ×2 (12:03→12:43)
[2017-01-11] MEDS ORDERED: HEPARIN SO5000 UNIT/ SUBQ (12:03)
[2017-01-11] MEDS ORDERED: LANTUS100 UNIT/M SUBQ (12:03)
[2017-01-11] MEDS ORDERED: GLUTOSE GEL 1515 G1 PO (12:03)
[2017-01-11] MEDS ORDERED: LEVALBUTER1.25 MG/0. INH (12:03)
[2017-01-11] MEDS ORDERED: ONDANSETRON HCL4 M1 IV PUSH (12:03)
[2017-01-11] MEDS ORDERED: HUMALOG100 UNIT/1 SUBQ (12:03)
[2017-01-11] MEDS ORDERED: PREDNISONE10 MG PO (12:03)
[2017-01-11] MEDS ORDERED: GLUCAGON HCL1 MG IM (12:03)
[2017-01-11] MEDS ORDERED: AUGMENTIN 875875 MG PO (12:19)
[2017-01-11] MEDS ORDERED: PROBIOTIC1 EAC1 PO (12:20)
== END 2017-01-11 16:05 | DRG 207 ==
LOC: ICU 16:57 → 2N 01-03 12:23 → ICU 01-04 06:09 → 4W 01-10 13:27
PROVIDERS: Hospitalist; Internal Medicine; Internal Medicine Nephrology; Internal Medicine Pulmonary Disease; Nurse Practitioner Family
PROC: 5A09357 Assistance with Respiratory Ventilation, Less than 24 Consecutive Hours, Continuous Positive Airway Pressure (ICD-10-PCS; principal; 2017-01-01)
PROC: 02PYX3Z Removal of Infusion Device from Great Vessel, External Approach (ICD-10-PCS; 2017-01-02)
PROC: 02HV33Z Insertion of Infusion Device into Superior Vena Cava, Percutaneous Approach (ICD-10-PCS; 2017-01-04)
PROC: 30233N1 Transfusion of Nonautologous Red Blood Cells into Peripheral Vein, Percutaneous Approach (ICD-10-PCS; 2017-01-05)
PROC: 5A1955Z Respiratory Ventilation, Greater than 96 Consecutive Hours (ICD-10-PCS; 2017-01-05)
PROC: 0BJ08ZZ Inspection of Tracheobronchial Tree, Via Natural or Artificial Opening Endoscopic (ICD-10-PCS; 2017-01-05)
PROC: 0BH17EZ Insertion of Endotracheal Airway into Trachea, Via Natural or Artificial Opening (ICD-10-PCS; 2017-01-05)
DX: J69.0 Pneumonitis due to inhalation of food and vomit (principal); J96.22 Acute and chronic respiratory failure with hypercapnia; J96.21 Acute and chronic respiratory failure with hypoxia; G92 Toxic encephalopathy; N17.9 Acute kidney failure, unspecified; I42.9 Cardiomyopathy, unspecified; I13.0 Hypertensive heart and chronic kidney disease with heart failure and stage 1 through stage 4 chronic kidney disease, or unspecified chronic kidney disease; I50.30 Unspecified diastolic (congestive) heart failure; I25.10 Atherosclerotic heart disease of native coronary artery without angina pectoris; E03.9 Hypothyroidism, unspecified; E78.5 Hyperlipidemia, unspecified; E11.51 Type 2 diabetes mellitus with diabetic peripheral angiopathy without gangrene; E87.6 Hypokalemia; D63.8 Anemia in other chronic diseases classified elsewhere; J44.9 Chronic obstructive pulmonary disease, unspecified; G47.33 Obstructive sleep apnea (adult) (pediatric); R25.1 Tremor, unspecified; E11.22 Type 2 diabetes mellitus with diabetic chronic kidney disease; N18.3 Chronic kidney disease, stage 3 (moderate); Z88.8 Allergy status to other drugs, medicaments and biological substances; Z87.891 Personal history of nicotine dependence; Z95.1 Presence of aortocoronary bypass graft; Z82.49 Family history of ischemic heart disease and other diseases of the circulatory system; Z83.3 Family history of diabetes mellitus; Z79.4 Long term (current) use of insulin; Z79.82 Long term (current) use of aspirin; Z79.899 Other long term (current) drug therapy
CPT/HCPCS: 10045; 10078; 10081; 27000; 85076

== ENCOUNTER → 2017-02-02 | Outpatient (CLI) | payer OTHER ==
[~2017-02-02] MED LIST changes: +ALDACTONE50 MG PO; +AUGMENTIN 875875 MG PO; +GLUCAGON HCL1 MG IM; +GLUTOSE GEL 1515 G1 PO; +HEPARIN SO5000 UNIT/ SUBQ; +LEVALBUTER1.25 MG/0. INH; +MERREM1 GM IV; +ONDANSETRON HCL4 M1 IV PUSH; +PROBIOTIC1 EAC1 PO; +TRANSDERM-SCO1 PATC1 TRANSDERM
== END ==
LOC: CAT 08:10
DX: R51 Headache (principal); W19.XXXA Unspecified fall, initial encounter; Y93.89 Activity, other specified; Y92.89 Other specified places as the place of occurrence of the external cause; Y99.8 Other external cause status

== ENCOUNTER → 2017-03-28 | Outpatient (CLI) | payer OTHER | LOC: RAD 10:21 | DX: S22.43XA Multiple fractures of ribs, bilateral, initial encounter for closed fracture (principal); J90 Pleural effusion, not elsewhere classified; X58.XXXA Exposure to other specified factors, initial encounter; Y93.89 Activity, other specified; Y92.89 Other specified places as the place of occurrence of the external cause; Y99.8 Other external cause status ==

== ENCOUNTER → 2017-05-11 | Outpatient (CLI) | payer OTHER | LOC: RAD 10:26 | DX: J18.9 Pneumonia, unspecified organism (principal); J90 Pleural effusion, not elsewhere classified; I51.7 Cardiomegaly; K85.90 Acute pancreatitis without necrosis or infection, unspecified ==

== ENCOUNTER → 2018-01-01 | Outpatient (CLI) | payer OTHER | LOC: SLEEPLAB 19:06 | DX: G47.33 Obstructive sleep apnea (adult) (pediatric) (principal) ==

== ENCOUNTER → 2018-02-19 | Outpatient (CLI) | payer OTHER | LOC: RAD 16:12 | DX: J98.11 Atelectasis (principal); J90 Pleural effusion, not elsewhere classified; N18.3 Chronic kidney disease, stage 3 (moderate); I50.9 Heart failure, unspecified; Z87.891 Personal history of nicotine dependence; Z88.8 Allergy status to other drugs, medicaments and biological substances ==

== ENCOUNTER 2019-05-04 11:09 | Inpatient (IN) | payer OTHER ==
[~2019-05-04] VITALS: Ht 170.2 cm; Wt 99.5 kg
[2019-05-04 13:35] VITALS: BP 151/85
--- NOTE | 2019-05-04 14:05 | NUR ---
Admission NOTES-Pt was transferred from [facility] via cart by EMS crews. Pt alert, oriented x 4. Pt had C-PAP in place. Applied NC w/ 4L of O2, 98% then titrated to 3L due to sat was good. RT set the continous pulse ox at bedside. LS coarse. Murmur on ascultation. NSR on monitor. Traceable Edema on BLE. Reddish ulcer vs cellulitis on LE, old scar on RL molina. Pt stated that he walk w walker. Notified Dr. Roldan, hospitalist. Dr. Roldan came by bedside and assessed pt. BS 44. Rechecked 45. Will provide something to eat. Will continue to monitor
[2019-05-04 15:25] LABS: ABSOLUTE NEUTROPHILS 11.5 thou/uL (1.4-8.2); BASOPHILS 0.1 % (0.0-2.0); HEMATOCRIT 29.2 % (42.0-52.0); HEMOGLOBIN 9.4 gm/dL (14.0-18.0); LYMPHOCYTES 2.6 % (24.0-44.0); MCH 28.6 pg (26.0-34.0); MCHC 32.2 g/dL (28.0-37.0); MONOCYTES 0.7 % (1.0-8.0); PLATELET COUNT 232 thou/uL (150-400); POLYS 96.6 % (36.0-66.0); RBC 3.28 mil/uL (4.50-6.00); RDW 16.1 % (10.5-14.5); WBC 11.9 thou/uL (4.0-11.0)
[2019-05-04 15:46] LABS: ALBUMIN 2.7 g/dL (3.4-5.0); BUN 82 mg/dL (7-18); CALCIUM 9.1 mg/dL (8.5-10.1); GLUCOSE 201 mg/dL (74-106); MAGNESIUM 2.4 mg/dL (1.8-2.4); SGOT 29 U/L (15-37); SGPT 27 U/L (30-65); TOTAL BILIRUBIN 0.3 mg/dL (<0.1-1.0); TOTAL PROTEIN 7.4 g/dL (6.4-8.2); TROPONIN-I <0.06 ng/mL (<0.06)
[2019-05-04 15:53] LABS: ANION GAP 1 mmol/L (7-16); CHLORIDE 103 mmol/L (98-107); CO2 40 mmol/L (21-32); POTASSIUM 4.4 mmol/L (3.5-5.1); SODIUM 144 mmol/L (136-145)
[2019-05-04 15:59] LABS: BE(vivo) 9.7 mmol/L (-2 to +3); HCO3 38.6 mmol/L (22.0-26.0); PCO2 82.1 mmHg (35.0-45.0); PO2 116.2 mmHg (80.0-100.0); sO2 97.6 % (92.0-98.0)
[2019-05-04] MEDS ORDERED: DIAZEPAM2 MG PO (17:17)
[2019-05-04] MEDS ORDERED: PREDNISONE 5 MG5 M1 (17:18)
[2019-05-04] MEDS ORDERED: SPIRONOLACTONE25 M1 PO (17:19)
[2019-05-04 18:33] LABS: URINE BILIRUBIN NEGATIVE (Negative); URINE BLOOD NEGATIVE (Negative); URINE CLARITY CLEAR; URINE COLOR YELLOW; URINE GLUCOSE-RANDOM* TRACE (Negative); URINE KETONES NEGATIVE (Negative); URINE LEUKOCYTES-REFLEX NEGATIVE (Negative); URINE NITRITE-REFLEX NEGATIVE (Negative); URINE PROTEIN (DIPSTICK) NEGATIVE (Negative); URINE UROBILINOGEN 0.2 E.U./dl (0.2-1.0)
[2019-05-04 19:03] VITALS: BP 127/73
[2019-05-04 23:14] VITALS: BP 119/65
[2019-05-05 04:07] VITALS: BP 163/76
[2019-05-05 04:20] LABS: HEMATOCRIT 28.1 % (42.0-52.0); HEMOGLOBIN 8.9 gm/dL (14.0-18.0); MCHC 31.5 g/dL (28.0-37.0); MCV 88.7 fL (80.0-100.0); RBC 3.16 mil/uL (4.50-6.00); RDW 16.1 % (10.5-14.5); WBC 11.3 thou/uL (4.0-11.0)
[2019-05-05 04:56] LABS: ANION GAP 5 mmol/L (7-16); BUN 91 mg/dL (7-18); CALCIUM 8.6 mg/dL (8.5-10.1); CHLORIDE 100 mmol/L (98-107); CO2 38 mmol/L (21-32); CREATININE 2.2 mg/dL (0.7-1.3); GLUCOSE 241 mg/dL (74-106); MAGNESIUM 2.6 mg/dL (1.8-2.4); POTASSIUM 4.7 mmol/L (3.5-5.1); SODIUM 143 mmol/L (136-145); TROPONIN-I <0.06 ng/mL (<0.06)
--- NOTE | 2019-05-05 06:01 | NUR ---
Pt rested well through the night with stable VS and no c/o pain. SpO2 remain adequate on 3L of O2 and tolerated wearing BiPap for several hours. Am lab results pending, continue with POC.
[2019-05-05 07:41] VITALS: BP 124/58
--- NOTE | 2019-05-05 13:27 | EKG ---
[place] [address] [facility] [place] [employer] [address] ELECTROCARDIOGRAM REPORT Name: LAVERN LOWRY Room #: 350-P ADM IN M.R.#: [id number] Admission: 05/04/19 Attend Phys: Willard Roldan MD Discharge: Date of : 50 Report #: [id number] THIS REPORT FOR: //name// [facility] Test Date: 2019-05-04 Test Time: 14:58:20 Pat Name: LAVERN LOWRY Department: Room: 350 P Gender: M Watch Train Assembler: Geoff CALERO : 1950 Requested By: Willard Roldan Order Number: [id number] MD: Cain Wang Measurements Intervals [place] Rate: 78 P: 34 FL: 160 QRS: -23 QRSD: 105 T: 133 QT: 428 QTc: 488 Interpretive Statements Sinus rhythm Probable left atrial enlargement LVH with secondary repolarization abnormality Borderline prolonged QT interval Compared to ECG 01/05/2017 10:26:[address] segment abnormality is now present Electronically Signed On 05-05-2019 13:26:49 CDT by Cain Wang [email or web address] <ELECTRONICALLY SIGNED> By: Cain Wang MD, [facility] 05/05/19 1326 1458 1458 Cain Wang MD, [facility] /EPI
[2019-05-05 15:58] VITALS: BP 120/47
--- NOTE | 2019-05-05 18:41 | NUR ---
PT UP TO BATHROOM SEVERAL TIMES TODAY, SBA. VSS.
[2019-05-05 19:12] VITALS: BP 120/47
[2019-05-06 03:41] VITALS: BP 141/62
[2019-05-06 05:14] LABS: HEMATOCRIT 28.4 % (42.0-52.0); HEMOGLOBIN 9.2 gm/dL (14.0-18.0); MCHC 32.5 g/dL (28.0-37.0); MCV 89.2 fL (80.0-100.0); RBC 3.19 mil/uL (4.50-6.00); RDW 16.1 % (10.5-14.5); WBC 10.4 thou/uL (4.0-11.0)
[2019-05-06 05:28] LABS: ALBUMIN 2.6 g/dL (3.4-5.0); CALCIUM 8.8 mg/dL (8.5-10.1); CREATININE 2.3 mg/dL (0.7-1.3); PHOSPHORUS 4.4 mg/dL (2.5-4.9); POTASSIUM 4.7 mmol/L (3.5-5.1)
[2019-05-06 05:40] LABS: BE(vivo) 8.8 mmol/L (-2 to +3); PO2 79.2 mmHg (80.0-100.0); pH 7.357 (7.360-7.450); sO2 94.8 % (92.0-98.0)
[2019-05-06 05:41] LABS: PCO2 65.7 mmHg (35.0-45.0)
--- NOTE | 2019-05-06 06:03 | NUR ---
Pt. on 3L/NC then had BIPAP on at HS. Nocturnal desat study done. Pulmonary consult called last night. No respiratory distress though he stated he gets short of breath with exertion. Bed alarm on for safety. He calls appropriately if he needs assistance and gets up with min. to SB assist. Voided per urinal. Critical PCO2 on ABG called to [employer]OD TECHNOLOGY TEACHER this am. Will continue to monitor.
--- NOTE | 2019-05-06 06:47 | HC ---
[facility] [place] [address] CONSULTATION Name: LAVERN LOWRY Room #: 350-[facility] IN M.R.#: [id number] Admission: 05/04/19 Attend Phys: Willard Roldan MD Discharge: Date of : 50 Report #: [id number] THIS REPORT FOR: //name// CC: FAM unknown Willard HU DATE OF SERVICE: 05/05/2019 CONSULTING PHYSICIAN: Dr. Willard Roldan. REASON FOR CONSULTATION: Uncontrolled type 2 diabetes mellitus. HISTORY OF PRESENT ILLNESS: This is a 68-year-old male patient whose medical background is rather extensive and is noted for type 2 diabetes mellitus, hypothyroidism, congestive heart failure, chronic kidney disease, and COPD requiring chronic oxygen therapy. The patient was admitted at [facility] for the main issue of respiratory failure and then was transferred to [facility] for further care and monitoring. From the diabetes standpoint, the patient notes that he has had type 2 diabetes mellitus for nearly 20 years. He is currently maintained on a regimen of Humulin N insulin 26 units in the morning and 40 units in the evenings in addition to Novolin 70/30 with dosage that varies as per a sliding scale, but averages at about 5 units with breakfast, 10 units with lunch and 15 units with supper. The patient notes that his fasting blood glucose values have been well controlled, mostly with values running in the 80-120 mg/dL range. He notes that his blood sugars tend to spike around lunchtime to about 220 or 230 mg/dL. Hypoglycemia occurs only occasionally and is typically not severe. He notes that a hemoglobin A1c obtained a few weeks ago was at 7.2%. The patient is not known to have diabetic retinopathy, but does have cataracts, which he underwent surgery for just recently, he is known to have chronic kidney disease with a baseline creatinine of 2.4. He also notes that he has extensive vascular disease requiring the placement of stents in lower extremities as well as coronary arteries. He has an element of diabetic neuropathy, is on gabapentin therapy for this. The patient is also known to have had hypothyroidism for many years and is on a stable dose of levothyroxine 150 mcg daily. He does not note a dramatic change in his overall level of activity, body weights, skin or hair. He believes that his last thyroid function studies were acceptable, but he is unsure as to when those were done. [address] [address] CONSULTATION Name: ALENLAVERN THEODOREG Room #: 350-P [facility] IN M.R.#: [id number] Admission: 05/04/19 Attend Phys: Willard Roldan MD Discharge: Date of : 50 Report #: [id number] REVIEW OF SYSTEMS: CONSTITUTIONAL: Fatigue, tiredness, no weight changes, fever or chills. PULMONARY: Shortness of breath, chronic oxygen therapy. HEENT: Negative for sore throat, sinus pain, ear drainage. CARDIAC: Noted for lower extremity edema, intermittent palpitations, but no syncope or presyncope. No chest pain. GASTROINTESTINAL: Intermittent issues with abdominal distention, abdominal discomfort, nausea, but no vomiting. HEMATOLOGY: Negative for bleeding, but he does bruise somewhat easily. PSYCHIATRIC: Negative for hallucinations, delusions. NEUROLOGY: Negative for loss of consciousness or seizure activity. MUSCULOSKELETAL: The patient has difficulty ambulating and utilizes a walker for doing that. He has sporadic intermittent issues with muscle and joint aches, otherwise review of systems noncontributory other than those mentioned in HPI. PAST MEDICAL HISTORY: 1. Type 2 diabetes mellitus. 2. Cataracts. 3. Diabetic neuropathy. 4. Chronic kidney disease stage 3 to 4, GFR of 30-59 baseline. 5. Chronic obstructive pulmonary disease requiring chronic oxygen therapy, 24 hours, with overnight BiPAP therapy. 6. Obesity. 7. Hypertension. 8. History of pleural effusion. 9. Peripheral vascular disease. 10. Coronary artery disease. 11. Hyperlipidemia. 12. Hypothyroidism. PAST SURGICAL HISTORY: 1. Noted for CABG x 1. 2. Femoral-popliteal arterial bypass surgery to the right lower extremity. 3. Right carotid endarterectomy. 4. Stent placement in July. 5. Right thoracotomy with decortication in 2016. 6. Left thoracotomy with decortication in 2017 as well. ALLERGIES: ROSIGLITAZONE. OUTPATIENT MEDICATIONS: Include: 1. Humulin N insulin 26 units in a.m., 40 units in p.m. 2. Novolin 70/30 at doses 5, 10, 15 units for breakfast, lunch and supper respectively. 3. Levothyroxine 150 mcg daily. [address] [address] CONSULTATION Name: ALENLAVERN THEODOREG Room #: 350-P [facility] IN M.R.#: [id number] Admission: 05/04/19 Attend Phys: Willard Roldan MD Discharge: Date of : 50 Report #: [id number] 4. Prednisone 5 mg daily. 5. Metoprolol 50 mg b.i.d. 6. Gabapentin 300 mg t.i.d. 7. Atorvastatin 40 mg daily. 8. Aspirin 81 mg daily. FAMILY HISTORY: Noncontributory. SOCIAL HISTORY: The patient lives by himself and has 4 children. Has not smoked in 20 years. Denies use of alcohol. PHYSICAL EXAMINATION: GENERAL: Pleasant male patient who is not in apparent pain or distress. VITAL SIGNS: Blood pressure is 124/58 mmHg, heart rate is 55 beats per minute, respirations 19 per minute, temperature of 36.4 degrees. CONSTITUTIONAL: He is sitting at the side of his bed, seems comfortable, not in apparent distress. HEENT: Anicteric sclerae. Intact extraocular motions. NECK: Supple, without JVD or carotid bruits. No appreciable thyromegaly. CHEST: Noted for limited air entry bilaterally with scattered wheezes, rales, but not crackles. HEART: Regular rate and rhythm with a systolic murmur. ABDOMEN: Obese, but soft and lax, nontender, no guarding, no organomegaly. Active bowel sounds. EXTREMITIES: Lower extremity exam, +1 ankle edema bilaterally with stasis dermatitis, but no skin breaks or ulcerations. NEUROLOGIC: Awake, alert and oriented to time, place and person. Grossly nonfocal. PSYCHIATRY: Awake, alert, interactive, pleasant. Normal mood and affect. LABORATORY RESULTS: Blood glucose values on arrival were pretty low at 44 and 45 mg/dL, but have progressively gone up with his most recent was 433 mg/dL. Otherwise, sodium 143, potassium 4.7, chloride 100, anion gap 5, BUN 91, creatinine 2.2, AST 29, total bilirubin 0.3, direct bilirubin 0.3, calcium 8.6, magnesium 2.6, alkaline phosphatase 79, ALT is 27, total protein 7.4, albumin 2.7, GFR 30. Troponin undetectable. Total cholesterol 105, triglycerides 72, HDL 55, LDL 42. BNP 2796, free T4 of 1.0, CRP 33.2. White blood count 11.3, hemoglobin 8.9, hematocrit 28.1, platelets 212. ESR 119. TSH 0.33. Hemoglobin A1c in 2017 was 8.3 by report. This was a 7.2 a few weeks ago. ASSESSMENT AND PLAN: 1. Type 2 diabetes mellitus. As noted above, the patient has a longstanding history of type 2 diabetes mellitus with multiple end-organ complications involving microvascular disease manifested by his diabetic nephropathy as well as macrovascular disease manifested by severe peripheral arterial disease and [facility] [address] [place] [address] CONSULTATION Name: LAVERN LOWRY Room #: 350-P ADM IN M.R.#: [id number] Admission: 05/04/19 Attend Phys: Willard Roldan MD Discharge: Date of : 50 Report #: [id number] coronary artery disease. The patient and I had a lengthy discussion about the necessity of controlling his blood glucose values adequately both short term and half-way to contain and manage these complications. I discussed the patient's most recent outpatient regimen with him and I expressed an interest in shifting towards a basal bolus insulin, whereby he would get somewhat better meal coverage with a pure fast-acting insulin instead of a mixed insulin and possibly resorting to a basal insulin analog again for a more consistent 24-hour basal insulin need coverage. In the immediate vicinity in the hospital, I will start the patient on Lantus insulin 30 units daily in addition to coverage with the scheduled Humalog supplemental scale of 10 units t.i.d. a.c. and providing a backup coverage with Humalog supplemental scale at moderate intensity as well. Blood glucose monitoring will commence a.c. and at bedtime, so as to assist in making further changes as needed going forward. 2. Hypothyroidism. The patient is on a stable dose of levothyroxine of 150 mcg daily. His free T4 of 1.0 supports the notion of adequate coverage by this dosage. I will leave that unchanged. 3. Hyperlipidemia. The patient's lipid panel obtained during this hospital stay is indicative of adequate control on the current regimen of atorvastatin, he is to continue with the same. 4. Congestive heart failure. The patient has baseline issues with congestive heart failure and seems to have maintained stability for this issue with the current regimen of furosemide, Aldactone, and metoprolol, he is to continue the same. 5. Chronic kidney disease. The patient has a baseline creatinine of 2.4 and he has practically a stage [address] William is following the patient for this issue. I certainly appreciate this consultation by Dr. Roldan. <ELECTRONICALLY SIGNED> By: Zeyad Quintana MD 05/06/19 0647 [id number] Zeyad Quintana MD /nt
[2019-05-06 07:40] VITALS: BP 131/40
--- NOTE | 2019-05-06 09:54 | 2DMMODE ---
[facility] [address] [place] [address] 2 D/M-MODE ECHOCARDIOGRAM Name: LAVERN LOWRY Room #: 350-P ADM IN M.R.#: [id number] Admission: 05/04/19 Attend Phys: Willard Roldan MD Discharge: Date of : 50 Report #: [id number] THIS REPORT FOR: //name// APPROVED REPORT Study performed: 05/06/2019 08:19:10 EXAM: Comprehensive 2D, Doppler, and color-flow Echocardiogram Patient Location: Echo lab Room #: 350 Status: routine BSA: 2.12 HR: 60 bpm BP: 131/40 mmHg Rhythm: NSR Other Information Study Quality: Adequate/Technically Difficult Technically limited study due to body habitus. Indications Congestive Heart Failure COPD Diabetes CAD Hypertension/HDD Echo Enhancing Agent Indication: Endocardial border delineation Agent(s) / Amount(s) Used: Optison 3 cc 2D Dimensions RVDd: 33.04 mm IVSd: 14.74 (7-11mm) LVOT Diam: 21.18 (18-24mm) LVDd: 59.63 mm PWd: 14.74 (7-11mm) Ascending Ao: 27.22 (22-36mm) LVDs: 37.83 (25-40mm) Aortic Root: 28.61 mm IVC: 22.00 mm Volumes Left Atrial Volume (Systole) Single Plane 4CH: 100.17 mL Single Plane 2CH: 78.29 mL LA ESV Index: 44.00 mL/m2 [facility] [place] [address] 2 D/M-MODE ECHOCARDIOGRAM Name: LAVERN LOWRY Room #: 350-P ADM IN M.R.#: [id number] Admission: 05/04/19 Attend Phys: Willard Roldan MD Discharge: Date of : 50 Report #: [id number] Aortic Valve AoV Peak Burak.: 4.64 m/s AO Peak Gr.: 86.05 mmHg LVOT Max P.32 mmHg AO Mean Gr.: 47.15 mmHg LVOT Mean P.29 mmHg AO V2 Mean: 3.24 m/s LVOT Max V: 1.04 m/s AO V2 VTI: 133.07 cm LVOT Mean V: 0.71 m/s JENA (VTI): 0.79 cm2 LVOT V1 VTI: 29.71 cm JENA Vmax: 0.79 cm2 AI Vmax: 3.50 m/s SV (LVOT): 104.65 mL AI [place]: 2.87 m/s2 AI PHT: 353.19 ms Mitral Valve MV Peak Gr.: 20.89 mmHg MV Mean Gr.: 6.49 mmHg MV Decel. Time: 484.86 ms MV Max Burak.: 2.28 m/s MV Mean Burak.: 1.13 m/s MV VTI: 743.68 mm MVA VTI: 140.72 mm2 MV PHT: 114.04 ms MVA (PHT): 1.93 cm2 IVRT: 62.28 ms Pulmonary Valve PV Peak Burak.: 0.94 m/s PV Peak Gr.: 3.51 mmHg Pulmonary Vein P Vein S: 0.46 m/s P Vein A: 0.16 m/s P Vein D: 0.43 m/s P Vein A Dur.: 117.6 msec P Vein S/D Ratio: 1.07 Tricuspid Valve TR Peak Burak.: 3.95 m/s RAP Estimate: 10.00 mmHg TR Peak Gr.: 62.47 mmHg PA Pressure: 72.00 mmHg Left Ventricle Left ventricle is at the upper limits of normal. Moderate concentric left ventricular hypertrophy. The left ventricular systolic function is normal. The left ventricular ejection fraction is within the normal range. LVEF is 60%. Moderate diastolic dysfunction is present (pseudonormal filling). Right Ventricle The right ventricle is normal size. The right ventricular systolic [facility] [address] [place] [address] 2 D/M-MODE ECHOCARDIOGRAM Name: LAVERN LOWRY Room #: 350-P [facility] IN M.R.#: [id number] Admission: 05/04/19 Attend Phys: Willard Roldan MD Discharge: Date of : 50 Report #: [id number] function is normal. Atria Left atrium is mildly dilated. The right atrium size is normal. Aortic Valve Aortic valve is moderate to severely calcified. Mild to moderate aortic regurgitation. There is severe valvular aortic stenosis. Calculated aortic valve area is 0.8 cm2 with maximum pressure gradient of 86 mmHg and mean pressure gradient of 47 mmHg. Mitral Valve Moderate to severe mitral annular calcification. Mild mitral regurgitation. Moderate mitral stenosis. Calculated mitral valve area is 1.9 cm2 with maximum pressure gradient of 21 mmHg and mean pressure gradient of 6.5 mmHg. Tricuspid Valve The tricuspid valve is normal in structure. Mild to moderate tricuspid regurgitation. PAP is estimated at 72 mmHg. Pulmonic Valve The pulmonary valve is normal in structure. There is no pulmonic valvular regurgitation. Great Vessels The aortic root is normal in size. IVC is mildly dilated and collapses >50% with inspiration. Pericardium There is no pericardial effusion. <Conclusion> Left ventricle is at the upper limits of normal. LVEF is 60%. Left atrium is mildly dilated. Aortic valve is moderate to severely calcified. Mild to moderate aortic regurgitation. There is severe valvular aortic stenosis. Calculated aortic valve area is 0.8 cm2 with maximum pressure gradient of 86 mmHg and mean pressure gradient of 47 mmHg. Moderate to severe mitral annular calcification. Mild mitral regurgitation. Moderate mitral stenosis. Calculated mitral valve area is 1.9 cm2 with maximum pressure gradient of 21 mmHg and mean pressure gradient [address] [address] 2 D/M-MODE ECHOCARDIOGRAM Name: LOWRYLAVERN JOSE ENRIQUE Room #: 350-P [facility] IN M.R.#: [id number] Admission: 05/04/19 Attend Phys: Willard Roldan MD Discharge: Date of : 50 Report #: [id number] of 6.5 mmHg. The tricuspid valve is normal in structure. Mild to moderate tricuspid regurgitation. PAP is estimated at 72 mmHg. There is no pericardial effusion. <ELECTRONICALLY SIGNED> By: Alvaro Costa MD 05/06/19 0954 3 3 Alvaro Costa MD /INF
[2019-05-06 13:46] LABS: GLYCOHEMOGLOBIN (HGB A1C) 7.6 % (4.8-5.6)
--- NOTE | 2019-05-06 14:43 | NUR ---
INITIAL ASSESSMENT: Received consult for discharge planning. ESTEFANY reviewed chart and spoke with nursing and attending physician. Pt was transferred to [facility] from [facility] due to acute on chronic respiratory failure/CHF. Pt is on IV abx and IV steroids. ESTEFANY met with pt at bedside. Introduced role of SW. Pt is alert/orientated x 4. Pt reports he lives at home alone in [place]. There is a ramp to enter the home. No steps inside. Prior to admission, pt was independent with ADLs. Pt has canes, walker, rollator walker and w/c. Pt has home O2 in place through [facility]. Pt is normally on 3L of O2. Pt has used [facility] in the past for home IV infusion and [facility] for home wound vac. Pt has been to [facility]. Pt used [facility], which is no longer in service. Pt states he has used another HH since [facility], but is unsure of provider. Pt is agreeable with having HH services. No preference for HH agency.Pt's PCP is Dr. Alhaji Reza in [place]. Pt has a private duty caregiver that comes in for 6 hours/day x 5 days/week from [phone]. Pt also has a solutions architect that comes in twice per week. Pt's children live in [place] and are available to assist pt as needed. Pt states he will have transportation home when discharged. retail planner to fax referral to [facility] tomorrow. Per Medicare.[employer], [facility] does service [place]. ESTEFANY spoke with Camelia at [facility] to notify of new referral. She will forward HH referral to [place] office. ESTEFANY is following to assist as needed with discharge planning.
[2019-05-06 15:40] VITALS: BP 157/64
--- NOTE | 2019-05-06 17:57 | HC ---
[facility] [place] [address] CONSULTATION Name: LAVERN LOWRY Room #: 350- ADM IN M.R.#: [id number] Admission: 05/04/19 Attend Phys: Willard Roldan MD Discharge: Date of : 50 Report #: [id number] THIS REPORT FOR: //name// CC: FAM unknown Willard HU DATE OF SERVICE: 05/05/2019 NEPHROLOGY CONSULTATION REASON FOR CONSULTATION: Chronic kidney disease and volume management. HISTORY OF PRESENT ILLNESS: This is a 68-year-old male with a complex medical history. He carries an ongoing diagnosis of chronic kidney disease, stage 3. We have seen him during prior hospitalizations and he has been followed most recently in the hospital by Dr. Olivier Cedillo of [facility]. The patient runs a baseline creatinine level between 1.8 and 2.0. He has been really quite stable at that level. He is chronically on diuretics in the form of furosemide, which he takes 80 mg in the morning and evening and 40 mg midday as well as spironolactone 25 mg daily. He has longstanding problems with heart failure and volume overload and he tells me that has actually kept him fairly well regulated. He tends to vary only a couple of pounds in weight, which he follows closely. He has not had recent edema. His most current problem is that he presented to an outside hospital more short of breath. That has been increasing over the past couple of days. Again, this is without change in edema. He wears BiPAP at night and he has continued to doing that. He wears oxygen at home all day. He states just sense that something was different. He has not had cough, fevers or chills. Mostly, just dyspnea. He was put on BiPAP last night and states his breathing better today. PAST MEDICAL HISTORY: Longstanding diabetes mellitus and hypertension. He has chronic kidney disease. Again, recent creatinine levels run about 2.0. He has coronary artery disease with coronary artery bypass graft surgery in 2002 and a single stent in 2014. He has peripheral vascular disease with right carotid endarterectomy and right fem-pop bypass previously. He had problems with recurrent pleural effusions and has bilateral thoracotomies with decortications. He still has a wound on his left chest that has been unhealed for the better part of the past 2-3 years. He has hypothyroidism and is on replacement for that. He also has hyperlipidemia and is on treatment for that. MEDICATIONS: As listed on admission include furosemide 80 mg twice a day with 40 mg midday as noted above; spironolactone 25 mg daily, which is on his office records, but not on his admission medication list, he has confirmed that he is taking that; levothyroxine 0.15 mg daily; aspirin 81 mg daily; atorvastatin [address] [address] CONSULTATION Name: LAVERN LOWRY Room #: 350-P [facility] IN M.R.#: [id number] Admission: 05/04/19 Attend Phys: Willard Roldan MD Discharge: Date of : 50 Report #: [id number] mg daily; gabapentin 300 mg t.i.d.; metoprolol 50 mg b.i.d.; famotidine 20 mg b.i.d.; couple of different inhalers. He has been started on meropenem as an antibiotic, prednisone 20 mg daily, insulin. ALLERGIES: Listed to ROSIGLITAZONE. FAMILY HISTORY: Positive for heart disease and diabetes. No renal disease in family. SOCIAL HISTORY: The patient is a . He lives in [place], [place]. He is retired. He has a son who is with him here at this time. REVIEW OF SYSTEMS: He tries to strictly avoid sodium in his diet. Follow his weight on a regular basis. Again, normally, it varies only a couple of pounds. He has not had much in the way of recent edema. He has had the increasing dyspnea. Also, no cough or sputum. He is unaware of chest pain or palpitations. Appetite has been okay. He denies nausea or vomiting. No fevers, chills or sweats. Normally, he has no trouble voiding urine. He wears oxygen all the time at home as well as the BiPAP at night. He reports no new medications or exposures. PHYSICAL EXAMINATION: GENERAL: A pleasant 68-year-old male who is resting comfortably in bed and appears in no distress at this time. VITAL SIGNS: Blood pressure 124/58, heart rate 55, temperature 97.5 degrees Fahrenheit, respiratory rate 19, oxygen saturation 98% on 3 liters per nasal cannula. HEENT: Shows pupils are equal and reactive. Sclerae nonicteric. Oral mucosa is moist. NECK: Veins are not distended. No adenopathy. CHEST: Shows exceedingly poor excursion. It is difficult to hear any breath sounds at all because of the very poor excursion. This is bilateral. The previous thoracotomy scars are noted and there is still a bandage over the one posteriorly on the left. CARDIOVASCULAR: Heart has a regular rate and rhythm with a grade 2 systolic murmur at the base. ABDOMEN: Obese, has active bowel sounds, is nontender. No abdominal wall edema. I cannot palpate organomegaly or masses. EXTREMITIES: Show no peripheral edema quite remarkably. His legs show very thin atrophic skin. He has diminished pedal pulses. Chest x-ray shows underinflated lungs with evidence of atelectasis and/or volume overload. LABORATORY DATA: From today, sodium 143, potassium 4.7, chloride 100, bicarbonate 38, BUN 91, creatinine 2.2, calcium 8.6, total protein 7.4, albumin [facility] [address] [place] [address] CONSULTATION Name: LAVERN LOWRY Room #: 350-P [facility] IN M.R.#: [id number] Admission: 05/04/19 Attend Phys: Willard Roldan MD Discharge: Date of : 50 Report #: [id number] 2.7. White count 11.3; hemoglobin 8.9; hematocrit 28.1; platelets 212,000. Urinalysis from yesterday, specific gravity 1.010, pH 5.5, trace glucose and blood gas from yesterday, pH 7.29, pCO2 82.1 and a pO2 of 116. ASSESSMENT: 1. Chronic kidney disease, stage 3. He is actually very near his baseline. Volume is fairly well controlled, which is quite remarkable. His electrolytes are fine. We will continue to follow on this. From a diuretic standpoint, he has been doing fairly well on his regimen, although I do not understand the 40 mg midday dose of furosemide. At this point, I will change him to furosemide 80 mg b.i.d. as well as spironolactone 25 mg once daily. He will continue on the sodium restriction. 2. Respiratory failure with recent problems with hypercapnia. He is running a low pH with the hypercapnia in spite of having a serum bicarbonate in the mid 30s, so I think this is a rather abrupt change. He is on antibiotics, inhalers and some steroids. Those can all be continued. He may need longer term BiPAP to help correct further. 3. Severe chronic obstructive pulmonary disease/underlying lung disease. 4. Coronary artery disease, previous stents. 5. Prior thoracotomies and pleural peels with probably some residual restrictive component. 6. Longstanding diabetes mellitus. It is remarkable that he had no dipstick proteinuria. 7. Hypothyroidism, on replacement. PLAN: 1. I will resume his oral diuretics as noted above. That will include the furosemide 80 mg b.i.d. and spironolactone 25 mg once daily. 2. Follow up on his labs. 3. Continue sodium restricted diet. 4. We will follow along the care of this pleasant patient. <ELECTRONICALLY SIGNED> By: Pepe William MD 05/06/19 1757 [id number] Pepe William MD /nt
[2019-05-06 19:10] VITALS: BP 142/61
--- NOTE | 2019-05-06 19:18 | NUR ---
ASSUMED CARE AT 0700. PT ON 3L NC. PT GETS SOB WITH ACTIVITY. PT'S O2 INCREASED FROM 3L TO 4L NC WHILE PT RECOVERED FROM BEING SOB. PT RESTED AND THEN DECREASED TO 3L NC. O2 SAT REMAINS MID 90%.
[2019-05-07 03:28] VITALS: BP 138/65
--- NOTE | 2019-05-07 04:33 | NUR ---
Up in the chair at shift change then ambulated to bathroom with assist before going back to bed. O2 at 3L/NC then requiring more up to 5L with activities per day RN report. Shortness of breath with exertion. He slept well with BIPAP on at 35%. Bed alarm on for safety. Voided per urinal. Will continue to monitor.
[2019-05-07 06:31] LABS: ALBUMIN 2.5 g/dL (3.4-5.0); CREATININE 2.2 mg/dL (0.7-1.3); PHOSPHORUS 3.7 mg/dL (2.5-4.9); POTASSIUM 4.5 mmol/L (3.5-5.1)
[2019-05-07 08:08] VITALS: BP 133/50
--- NOTE | 2019-05-07 09:53 | NUR ---
community planner spoke with [facility]ee A[facility]A to get the phone number for [facility] (that will serve [place], [place] where patient lives). [facility] phone [phone]. . DP faxed home health referral on patient, they will take a look at it. DP will follow up.
[2019-05-07 10:56] LABS: BE(vivo) 9.9 mmol/L (-2 to +3); HCO3 38.1 mmol/L (22.0-26.0); PO2 76.8 mmHg (80.0-100.0); sO2 93.8 % (92.0-98.0)
[2019-05-07 10:58] LABS: PCO2 74.9 mmHg (35.0-45.0); pH 7.324 (7.360-7.450)
[2019-05-07 11:44] VITALS: BP 135/58
--- NOTE | 2019-05-07 13:39 | NUR ---
PT ALERT AND ORIENTED TIMES FOUR. PT WAS MORE AWAKE THIS MORNING. PT NOW LETHARGIC BUT EASILY AROUSABLE. CRITICAL ABG CALLED TO . PT PLACED ON BIPAP NO OTHER NEW ORDERS GIVEN. PT TOLERATES MEDS BUT HAS A POOR APPETITE. VSS, 96%3L/BIPAP. SR ON TELE. WILL CONTINUE TO MONITOR.
--- NOTE | 2019-05-07 14:41 | NUR ---
Began care of pt at 0700.Pt was A&Ox4 but became lethargic and has been asleep most of the day. Significant desat to 82% on 3L NC while eating. ordered STAT ABG and pt was placed on BPAP in late morning. Tolerating BIPAP well, O2 sat currently 94% and pt is still sleeping. Will continue to monitor condition.
--- NOTE | 2019-05-07 15:15 | NUR ---
I have reviewed the student's documentation.
[2019-05-07 15:20] VITALS: BP 134/56
[2019-05-07 17:19] VITALS: BP 101/30
[2019-05-07 20:19] VITALS: BP 141/95
--- NOTE | 2019-05-07 22:06 | HC ---
[facility] [place] [address] CONSULTATION Name: LAVERN LOWRY Room #: 350- ADM IN M.R.#: [id number] Admission: 05/04/19 Attend Phys: Willard Rodlan MD Discharge: Date of : 50 Report #: [id number] THIS REPORT FOR: //name// CC: FAM unknown Willard HU REASON FOR CONSULTATION: Congestive heart failure. HISTORY OF PRESENT ILLNESS: This is a very pleasant 68-year-old gentleman, well known to [facility] with significant congestive heart failure, acute renal failure, was transferred from local hospital with increasing shortness of breath. The patient states that he has noted the progressive shortness of breath over quite some time and over the last several days or so became more prominent. On the day of admission, his shortness of breath was quite significant and his baseline nasal cannula did not prevent him from being tachypneic and short of breath. He subsequently denies having had any chest pain, pressure, tightness, heaviness. No fever, chills, night sweats. He has not had any productive cough, whatsoever. He states this is similar to what he has had in the past with his congestive heart failure exacerbating. He does have a contributing factor such as sleep apnea and chronic kidney disease. He is on home O2 at 3 liters during the day and 4 liters at bedtime. PAST MEDICAL HISTORY: Significant for: 1. Chronic kidney disease, at least stage III. 2. Diabetes mellitus. 3. Hypertension. 4. Congestive heart failure diagnosis in the past (no echo to determine a heart failure with preserved ejection fraction or heart failure with reduced ejection fraction). Last echo was 2 years ago. 5. Peripheral vascular disease. 6. Hypothyroidism. 7. Hyperlipidemia. 8. Hypertension. ALLERGIES: AVANDIA, which causes severe liver issues. PAST SURGICAL HISTORY: 1. Thoracotomy. 2. Aortocoronary bypass grafting x 1. 3. Fem-pop bypass in the right leg. 4. Right carotid endarterectomy. 5. Coronary stents. MEDICATIONS: At home are Xopenex, Glutose gel, scopolamine transdermal, Lantus, lispro, prednisone 20 mg daily, lactobacilli, Merrem, DuoNeb, acetaminophen, Neurontin, Lopressor, Pepcid, MiraLax, Lasix. [address] [address] CONSULTATION Name: ALENLAVERN JOSE ENRIQUE Room #: 350-P [facility] IN M.R.#: [id number] Admission: 05/04/19 Attend Phys: Willard Roldan MD Discharge: Date of : 50 Report #: [id number] REVIEW OF SYSTEMS: Except for symptoms previously mentioned and those commensurate with comorbid state, the 10-point review of systems is normal. LABORATORY DATA: Demonstrates H and H of 8.9 and 28.1 with a platelet count of 212,000. BUN and creatinine are 91 and 2.2. Estimated GFR of 30. Glucose random is 241. Troponin is less than 0.06. RADIOLOGIC DATA: Chest x-ray demonstrates cardiomegaly with vascular congestion noted without evidence of focal consolidation or effusion. Electrocardiogram, no acute findings are noted. PHYSICAL EXAMINATION: GENERAL: Well-developed, well-nourished male, resting comfortably, in no acute distress. Oxygen in hand. VITAL SIGNS: Temperature is 36.4, pulse is 55, respirations are 18-19, blood pressure 124/58, pulse ox on 3 liters is 98%. HEENT: Normocephalic, atraumatic. Pupils are equal, round, reactive to light and accommodation. Extraocular muscles are intact. Sclerae and conjunctivae are anicteric. NECK: JVD is normal. Carotid upstrokes are bilaterally symmetrical. No bruits are heard. No thyromegaly. No lymphadenopathy. LUNGS: Demonstrate prolongation of the expiratory phase with end-expiratory wheezes noted. Bilateral basilar breath sounds are depressed and decreased. CARDIAC: Demonstrates a regular rhythm. Normal first and second heart sounds. No ventricular or atrial gallops, no rubs noted. No murmurs. No lifts or heaves, PMI normal. ABDOMEN: Soft, nontender, nondistended. Normal bowel sounds. EXTREMITIES: Without cyanosis, clubbing or edema. Distal pulses are intact. DTR symmetrical. NEUROLOGIC: Cranial nerves 2-12 are grossly normal and symmetrical. PSYCHIATRIC: Alert, oriented with normal affect. SKIN: Warm and dry. IMPRESSION: 1. Dyspnea, appears to be acute decompensation of chronic heart failure. We will continue the diuresis since it has improved his oxygen saturation quite nicely. We discussed with him causes of heart failure and he does voice understanding. We will continue with diuresis and treatment accordingly. 2. Chronic hypoxic respiratory failure, as per primary care and Pulmonary and will likely require improved pulmonary toilet and optimization of medical regimen. 3. Chronic kidney disease with GFR being quite low. This will clearly be an issue with diuresis, but we will need to monitor and watch very closely. 4. Diabetes mellitus as per primary care. 5. Coronary artery disease, no evidence of decompensation on the current [facility] [address] [place] [address] CONSULTATION Name: LAVERN LOWRY Room #: 350-P ADM IN M.R.#: [id number] Admission: 05/04/19 Attend Phys: Willard Roldan MD Discharge: Date of : 50 Report #: [id number] medical regimen, continue as is. 6. Hypertension. We will continue to monitor to make sure that the patient is at target. 7. Dyslipidemia. I have discussed the [employer] step 1 diet with the patient. This is important, but in view of his diabetes, a [place] diet would be more appropriate since it is the recommendation of the [place] Diabetic and the [employer]. <ELECTRONICALLY SIGNED> By: Alvaro Costa MD 05/07/19 2206 [id number] Alvaro Costa MD /nt
[2019-05-08 04:23] VITALS: BP 132/45
[2019-05-08 06:32] LABS: CALCIUM 9.4 mg/dL (8.5-10.1); CREATININE 2.2 mg/dL (0.7-1.3)
[2019-05-08 06:36] LABS: POTASSIUM 5.6 mmol/L (3.5-5.1)
[2019-05-08 07:25] VITALS: BP 123/47
--- NOTE | 2019-05-08 07:36 | NUR ---
PT MAKING SLOW PROGRESS TOWARDS GOALS. ON O2 AT 4L PER NC. PT AGREEABLE TO WEAR BIPAP OVERNIGHT AND DID UNTIL 0330. PT AMBULATING TO TOILET WITH O2 AT 6L PER NC WITHOUT ANY SIGNIFICANT SOA. DIMINISHED LUNG SOUNDS, CRACKLES NOTED IN BOTH BASES UPON AM ASSESSMENT.
[2019-05-08 09:37] LABS: HEMATOCRIT 30.4 % (42.0-52.0); HEMOGLOBIN 9.7 gm/dL (14.0-18.0); MCH 28.6 pg (26.0-34.0); MCHC 32.1 g/dL (28.0-37.0); MCV 89.2 fL (80.0-100.0); RBC 3.4 mil/uL (4.50-6.00); RDW 16.3 % (10.5-14.5); WBC 8.1 thou/uL (4.0-11.0)
[2019-05-08 09:50] VITALS: BP 123/47
[2019-05-08 11:23] VITALS: BP 104/49
--- NOTE | 2019-05-08 15:13 | NUR ---
SW reviewed chart and spoke with nursing and attending physician. Pt is progressing towards goals for discharge. Pt's dtr called earlier to discuss discharge plan and stated that pt might need rehab before returning home. Pt requires 3L at rest and needed 6L when working with PT. Rest/exercise oximetry to be ordered to evaluate pt for additional home O2 needs. Pt is normally on 3L continuously. Pt's home O2 is through [facility] in [place]. SW met with pt at bedside to discuss discharge plan. SW discussed possibility of pt going to post-acute care. Pt declined and states he has been to [facility] in the past. Pt feels like he is strong enough to return home. Pt states that SW can call his dtr to discuss discharge. SW spoke with pt's dtr, Roro, via phone. Pt's dtr voiced concerns with pt's weakness and ability to be at home alone. SW explained that HH will be arranged and will be able to see pt after discharge. Pt's dtr contacted [facility] regarding pt's bipap. Per [facility], pt has not been wearing his bipap. ESTEFANY spoke with intake at [facility] to discuss pt's new O2 needs. Pt's current concentrator goes up to 5L. Pt will need a 10L concentrator if O2 needs are still greater than 5L. Plan is for pt to discharge home with HH tomorrow. ESTEFANY is following to assist as needed with discharge planning.
--- NOTE | 2019-05-08 15:21 | NUR ---
Assumed care approx. 0700 this AM. Patient short of breath with activity/exertion today. Patient desat noted between 79%-80's when ambulating to the bathroom this AM. Patient would probably benefit from rehab, although he is denying wanting to go to any other facility at this time from report from case management. Patient currently 3LNC but requires about 6LNC with activity. Onetime order of 80 mg IV lasix administered a short time ago; 40 mg scheduled IV lasix administered this AM. Kayexalate given per orders-pt noted to have bowel movements post administration. Discharge planning in progress--discharge most likely tomorrow if no changes. Patient slowly progressing toward plan of care goals.
[2019-05-08 15:44] VITALS: BP 121/52
[2019-05-08 20:32] VITALS: BP 140/59
[2019-05-09 05:30] VITALS: BP 149/54
--- NOTE | 2019-05-09 05:43 | NUR ---
PT MAKING SLOW PROGRESS TOWARDS GOALS. ON O2 AT 3L PER NC. TITRATE UP TO 6L FOR ACTIVITY. PT REPORTS MILD SOA WITH ACITIVITY WITH THOSE SETTINGS. BIPAP OVERNIGHT. PT REPORTED MINOR BLEEDING FROM HIS LEFT NOSTRIL. MINUTE AMOUNT OF BRIGHT RED BLOOD OBSERVED. PT PINCHING HIS NOSE. ENCOURAGED TO CONTINUE TO DO THIS NEEDED AND CALL IF THE AMOUNT INCREASES. PT CHECKED FREQUENTLY, REPORTEDLY ONLY MINIMAL DRAINING. ENCOURAGED TO NOT BLOW HIS NOSE UNTIL AFTERNOON. ADDED BUBBLER TO O2 CANNULA. CONTINUES TO HAVE CRACKLES IN BOTH BASES.
[2019-05-09 07:43] VITALS: BP 129/53
[2019-05-09 08:06] LABS: ANION GAP < 0 mmol/L (7-16); BUN 100 mg/dL (7-18); CALCIUM 8.6 mg/dL (8.5-10.1); CHLORIDE 98 mmol/L (98-107); CO2 44 mmol/L (21-32); CREATININE 2.3 mg/dL (0.7-1.3); GLUCOSE 205 mg/dL (74-106); POTASSIUM 4.9 mmol/L (3.5-5.1); SODIUM 140 mmol/L (136-145)
[2019-05-09 10:38] VITALS: BP 148/57
[2019-05-09] MEDS ORDERED: LASIX 40 MG TAB40 M1 PO (11:21)
[2019-05-09] MEDS ORDERED: LANTUS SUBQ (11:21)
--- NOTE | 2019-05-09 12:09 | NUR ---
DISCHARGE PLANNING. POST ACUTE RECOMMENDED AT DISCHARGE. PATIENT AGREEABLE TO PLAN AND REQUESTS PATIENT REFERRAL FAXED TO [facility]. CALL PLACED TO [facility] SPOKE WITH HENOK, CONTROLLER REPAIRER AND TESTER. HENOK TO REVIEW REFERRAL WITH NURSING TEAM AND WILL NOTIFY CM. FOLLOWING TO ASSIST.
--- NOTE | 2019-05-09 12:19 | NUR ---
SW reviewed chart and spoke with nursing and attending physician. Pt is now agreeable with going to a SNF for continued rehab services and medical mgmt. SW met with pt at bedside to discuss discharge plan. Pt states he is agreeable with going to [facility], as he has been there in the past. process planner to send referral. SW updated pt's dtr, Roro and Camelia with [facility]. ESTEFANY is following to assist as needed with discharge planning.
[2019-05-09 15:58] VITALS: BP 119/48
--- NOTE | 2019-05-09 16:21 | NUR ---
Assumed care approx. 0700 this AM. Patient ALOx4 and on 3-4LNC. Patient increased to 4LNC when desat to mid 80's at rest. Patient encouraged to take slow, deep breaths. Patient has been drowsy and napped much of the day. Patient up to walk with therapy and RT this shift. Patient standby for continued fatigue and weakness. No new changes at this time. Will continue to monitor. Plan for [facility] facility tomorrow. Patient progressing toward plan of care.
[2019-05-09 20:06] VITALS: BP 140/59
[2019-05-10 03:18] VITALS: BP 146/59
--- NOTE | 2019-05-10 04:55 | NUR ---
FOLLOWING POC WITH BREATHING TREATMENTS AND USING BIPAP DURING SLEEP. PT WANTED TO COME OFF BIPAP AT 0100 ON 4L NC. PT WENT BACK ON BIPAP AT 0200. PT CAN DESAT VERY QUICKLY WHEN MOVING TO RESTROOM. CONTINOUS PULSE OX IN PLACE AND NEW PROBE PLACED ON PT TOE. PT IS A/0X4 AND HAS SOME TREMORS. AWAITING DC TO REHAB NEAR [facility]. HOURLY ROUNDING.
[2019-05-10 07:09] VITALS: BP 132/54
--- NOTE | 2019-05-10 14:39 | NUR ---
DISCHARGE NOTE: ESTEFANY reviewed chart and spoke with nursing and attending physician. Pt is medically stable for discharge to post-acute today. [facility] is able to accept pt today and they can provide transportation. Discharge orders completed. environmental emergencies planner faxed discharge orders/summary to the facility for review. ESTEFANY met with pt at bedside to provide update and discuss discharge. Pt is aware and agreeable with plan. ESTEFANY spoke with pt's dtr, Roro, via phone to provide update. Roro will take pt's bipap over to the facility and see pt this evening. Nursing to call report. Chart copy requested. ESTEFANY updated Camelia at [facility]. No additional SW needs identified at this time, but is available to assist should needs arise.
[2019-05-10 15:43] VITALS: BP 152/77
--- NOTE | 2019-05-10 20:06 | NUR ---
ASSUMED CARE OF PT AT APPROX 0700. PT IS LAERT AND ORIENTED X4, MONITORED ON TELE AND ABLE TO MAINTAIN 02 SAT >90 ON NC. DENIES PAIN. C/O SOA WITH ACTIVITY. ALSO 02 DOES NEED INCREASED WITH ACTIVITY. ASSESSMENT CHARTED. RECIEVED DC ORDERS. COMPLETED DC. CALLED FACILITY 2 TIMES AND UNABLE TO GIVE REPORT. PT LEFT VIA REHAB TRANSPORTATION. PT HAS MET POC GOALS OF DC.
== END 2019-05-10 18:09 | DRG 291 ==
LOC: 3W 11:09 → ENTRNSPT 05-10 18:08 → 3W 05-10 18:09
PROVIDERS: Hospitalist; Internal Medicine Nephrology; ADMIT Internal Medicine
PROC: 5A09357 Assistance with Respiratory Ventilation, Less than 24 Consecutive Hours, Continuous Positive Airway Pressure (ICD-10-PCS; principal; 2019-05-04)
PROC: 5A09357 Assistance with Respiratory Ventilation, Less than 24 Consecutive Hours, Continuous Positive Airway Pressure (ICD-10-PCS; 2019-05-05)
PROC: 5A09357 Assistance with Respiratory Ventilation, Less than 24 Consecutive Hours, Continuous Positive Airway Pressure (ICD-10-PCS; 2019-05-06)
PROC: 5A09357 Assistance with Respiratory Ventilation, Less than 24 Consecutive Hours, Continuous Positive Airway Pressure (ICD-10-PCS; 2019-05-07)
PROC: 5A09357 Assistance with Respiratory Ventilation, Less than 24 Consecutive Hours, Continuous Positive Airway Pressure (ICD-10-PCS; 2019-05-08)
PROC: 5A09357 Assistance with Respiratory Ventilation, Less than 24 Consecutive Hours, Continuous Positive Airway Pressure (ICD-10-PCS; 2019-05-09)
PROC: 5A09357 Assistance with Respiratory Ventilation, Less than 24 Consecutive Hours, Continuous Positive Airway Pressure (ICD-10-PCS; 2019-05-10)
DX: I13.0 Hypertensive heart and chronic kidney disease with heart failure and stage 1 through stage 4 chronic kidney disease, or unspecified chronic kidney disease (principal); J96.21 Acute and chronic respiratory failure with hypoxia; I50.33 Acute on chronic diastolic (congestive) heart failure; J96.22 Acute and chronic respiratory failure with hypercapnia; N17.9 Acute kidney failure, unspecified; J44.1 Chronic obstructive pulmonary disease with (acute) exacerbation; I38 Endocarditis, valve unspecified; E11.22 Type 2 diabetes mellitus with diabetic chronic kidney disease; E66.01 Morbid (severe) obesity due to excess calories; N18.3 Chronic kidney disease, stage 3 (moderate); I25.10 Atherosclerotic heart disease of native coronary artery without angina pectoris; E03.9 Hypothyroidism, unspecified; E11.40 Type 2 diabetes mellitus with diabetic neuropathy, unspecified; E11.51 Type 2 diabetes mellitus with diabetic peripheral angiopathy without gangrene; E78.5 Hyperlipidemia, unspecified; G47.33 Obstructive sleep apnea (adult) (pediatric); I27.20 Pulmonary hypertension, unspecified; I35.0 Nonrheumatic aortic (valve) stenosis; E87.5 Hyperkalemia; I27.81 Cor pulmonale (chronic); Z23 Encounter for immunization; Z68.35 Body mass index [BMI] 35.0-35.9, adult; Z79.4 Long term (current) use of insulin; Z95.1 Presence of aortocoronary bypass graft; Z82.49 Family history of ischemic heart disease and other diseases of the circulatory system; Z83.3 Family history of diabetes mellitus; Z95.5 Presence of coronary angioplasty implant and graft; Z68.34 Body mass index [BMI] 34.0-34.9, adult; Z88.8 Allergy status to other drugs, medicaments and biological substances; Z87.891 Personal history of nicotine dependence
CPT/HCPCS: 10879

== ENCOUNTER 2019-05-14 14:34 | Inpatient (IN) | payer OTHER ==
[~2019-05-14] VITALS: Ht 185.4 cm; Wt 88.2 kg
[~2019-05-14 14:34] MED LIST changes: +DIAZEPAM2 MG PO; +LANTUS SUBQ; +LASIX 40 MG TAB40 M1 PO; +PREDNISONE 5 MG5 M1; +SPIRONOLACTONE25 M1 PO
--- NOTE | 2019-05-14 19:36 | NUR ---
PATIENT ARRIVED VIA [facility] FROM [place] AT APPROX 1820. PATIENT NOT RESPONDING TO EVEN PAINFUL STIMULI. [facility] REPORTS THAT THE PATIENT HAS BEEN "BUCKING THE VENT" SO HE WAS GIVEN SEDATION IN ROUTE. UPON PATIENT ARRIVAL THIS NURSE ATTEMPTED TO CALL DR FU i WAS TOLD HE WAS THE ACCEPTING PHYSICIAN, NO CALL RETURNED UNTIL 1929 AND WAS MADE AWARE THAT IT SHOULD HAVE BEEN DR JACOB. DR FU HAD BEEN PAGED TWICE BY ME AND ONCE BY THE UNIT SEC. FARM MARKETER RN TO GET ORDERS FOR PATIENT TRADITIONAL CHINESE HERBALIST.FEMORAL LINE DRESSING CHANGED BY IV TEAM AND STATED IT WAS OKAY TO USE THE LINE. PATIENT ON ALL MONITORS . NO ISSUES AT THIS TIME. WILL CONTINUE TO MONITOR AND CARE PER PLAN OF CARE.
[2019-05-14 20:00] VITALS: BP 108/39
[2019-05-14 20:03] LABS: HEMATOCRIT 21.9 % (42.0-52.0); HEMOGLOBIN 7.2 gm/dL (14.0-18.0); MCV 88.1 fL (80.0-100.0); RBC 2.48 mil/uL (4.50-6.00); RDW 15.7 % (10.5-14.5)
[2019-05-14 20:11] LABS: BE(vivo) 9.3 mmol/L (-2 to +3); HCO3 35.5 mmol/L (22.0-26.0); PCO2 60.3 mmHg (35.0-45.0); PO2 113.3 mmHg (80.0-100.0); pH 7.388 (7.360-7.450)
[2019-05-14 20:15] LABS: CREATININE 2.6 mg/dL (0.7-1.3); POTASSIUM 4.8 mmol/L (3.5-5.1)
[2019-05-14 20:21] LABS: ALBUMIN 2.3 g/dL (3.4-5.0); TOTAL BILIRUBIN 0.7 mg/dL (<0.1-1.0); TOTAL PROTEIN 6.5 g/dL (6.4-8.2)
[2019-05-14 21:00] VITALS: BP 137/56
--- NOTE | 2019-05-14 21:16 | NUR ---
DR FU CALLED BACK AT 193 AND STATED THAT PT WAS ADMITTED UNDER DR JACOB. RN CONTACTED Patti MEHTA NP AT 193 AND ORDERS GIVEN AT THAT TIME. SPOKE TO DR TONEY IN ICU AT 2014 REGARDING NEW CONSULT AND PT STATUS. FAMILY UPDATED AT BEDSIDE ON CURRENT PT STATUS AT 2029, QUESTIONS ANSWERED. WILL CONTINUT TO MONITOR PT.
[2019-05-14 22:00] VITALS: BP 163/63
[2019-05-14 23:00] VITALS: BP 109/38
[2019-05-15] VITALS (30 sets, daily range): BP systolic 11–174; BP diastolic 32–60
[2019-05-15] MEDS ORDERED: LANTUS SUBQ ×2 (01:42→01:44)
[2019-05-15] MEDS ORDERED: FUROSEMIDE 40 M40 MG PO (01:48)
[2019-05-15] MEDS ORDERED: NEURONTIN 300M300 M2 PO (01:50)
[2019-05-15] MEDS ORDERED: PREDNISOLONE 5 M5 M1 PO (01:53)
[2019-05-15] MEDS ORDERED: SPIRONOLACTONE25 MG PO (01:54)
[2019-05-15 05:41] LABS: HEMATOCRIT 20.6 % (42.0-52.0); HEMOGLOBIN 6.7 gm/dL (14.0-18.0)
[2019-05-15 05:54] LABS: CALCIUM 8.7 mg/dL (8.5-10.1); CREATININE 2.5 mg/dL (0.7-1.3); POTASSIUM 4.3 mmol/L (3.5-5.1)
[2019-05-15 07:29] LABS: % SATURATION 11 % (20-39); IRON 24 ug/dL (65-175); TIBC 209 ug/dL (250-450)
[2019-05-15 08:12] LABS: FOLIC ACID 18.8 ng/mL (8.6-58.9)
--- NOTE | 2019-05-15 14:16 | NUR ---
Case opened to follow for dc planning. Pt is currently in the ICU and intubated. Supportive visit provided to pt's son Trey at bedside. He lives in [place], [place] and drove down to be with the pt. Pt's Dtr Roro lives in [place] and is the primary emergency contact. The pt is known to cm from a recent inpt stay. He was dc'd to SNF at [facility] on 05/10/19. Pt's son indicates that they has provided the pt's home bipap to the facility and he was suppose to start therapy yesterday. Prior to his recent admission, the pt lived alone in his own home near [place]. He has a ramp to enter and had a rwalker, w/c and bipap at home. He has hx of chronic chf. He is a full code. Dtr to bring in a copy of his dpoa paperwork and adv directive. Pt's pcp is Dr. Alhaji Reza. A referral had been started with [facility] for when he went home from the snf. DC capacity planner to fax an update to the snf. Will follow along and ask for therapy evals once the pt is able to be extubated.
[2019-05-15 16:09] LABS: HEMATOCRIT 25.8 % (42.0-52.0); HEMOGLOBIN 8.3 gm/dL (14.0-18.0)
--- NOTE | 2019-05-15 19:29 | NUR ---
PATIENT RESTING TODAY ON THE VENT. TOLERATING WELL. UNEVENTFUL DAY. PATIENT UNABLE TO LAY ON RIGHT SIDE OR PATIENT IS UNABLE TO PULL GOOD VOLUMES. WOUND TO LEFT SHOULDER BLADE NOTED. NO FURTHER CONCERNS AT THIS TIME. WILL CONTINUE TO MONITOR AND CARE PER PLAN OF CARE.
--- NOTE | 2019-05-15 21:45 | NUR ---
PT HAVING GURGLING NOISE FROM THE ETT. RT CALLED AT BEDSIDE AT 2100. ETT CUFF CHECKED AND INFLATED. PT VENT VOLUME DROP FROM 400'S TO 250'S AND COMES RIGHT BACK TO 400'S.CHEST XRAY SHOWS ETT BELOW CLAVICULAR LINE. PT MAINTAINING SPO2 ABOVE 95%. LUNG SOUNDS COARSE. RESPIRATORY RATE OF 12. CALLED DR. MALLOY AT 2141 ABOUT THE GURGLING NOISE FROM ETT AND EXPLAINED ALL THE INTERVENTIONS TRIED BY THIS RN. DR. MALLOY TALKED TO RT AND ETT ADVANCED TO 24@TEETH BY RT MELBA.NO MORE GURGLING NOISE.WILL CONTINUE TO MONITOR.
--- NOTE | 2019-05-15 22:36 | NUR ---
VAT CONSULED TO PLACE A CL SO FEMORAL LINE CAN BE REMOVED. RTLIJPOWERLINE PLACED WITH TIP AT THE ATRIAL APPENDAGE. PLEASE SEE INSERTION NI FOR DETAILS
[2019-05-16] VITALS (43 sets, daily range): BP systolic 103–176; BP diastolic 42–145
[2019-05-16 04:08] LABS: CALCIUM 8.8 mg/dL (8.5-10.1); CREATININE 2.4 mg/dL (0.7-1.3); MAGNESIUM 2.3 mg/dL (1.8-2.4); POTASSIUM 4.2 mmol/L (3.5-5.1)
[2019-05-16 04:39] LABS: BE(vivo) 14.8 mmol/L (-2 to +3); HCO3 41.1 mmol/L (22.0-26.0); PO2 123.2 mmHg (80.0-100.0); pH 7.417 (7.360-7.450); sO2 98.4 % (92.0-98.0)
[2019-05-16 04:40] LABS: PCO2 65.3 mmHg (35.0-45.0)
[2019-05-16 05:28] LABS: HEMATOCRIT 23.2 % (42.0-52.0); HEMOGLOBIN 7.5 gm/dL (14.0-18.0); MCH 28.6 pg (26.0-34.0); MCHC 32.5 g/dL (28.0-37.0); RBC 2.64 mil/uL (4.50-6.00); WBC 10.9 thou/uL (4.0-11.0)
--- NOTE | 2019-05-16 14:03 | NUR ---
FAXED CLINICAL UPDATE TO [facility] SPOKE WITH THE RECORDS ADMINISTRATOR SHE RECEIVED UPDATE. DP TO FOLLOW.
--- NOTE | 2019-05-16 16:30 | NUR ---
PATIENT REMAINS INTUBATED AT THIS TIME, CURRENTLY ON A CPAP TRIAL, PENDING ABG RESULTS. PATIENT WENT FOR CT SCAN AT 1345 AND TOLERATED IT WELL. SEDATION IN MINIMAL AT THIS TIME FOR CPAP TRIAL. PATIENT SON IS AT BEDSIDE. NO OTHER CONCERNS AT THIS TIME. WILL CONTINUE TO MONITOR.
[2019-05-16 17:05] LABS: BE(vivo) 15.4 mmol/L (-2 to +3); HCO3 42.8 mmol/L (22.0-26.0); PO2 120.1 mmHg (80.0-100.0); pH 7.394 (7.360-7.450); sO2 98.2 % (92.0-98.0)
[2019-05-16 17:06] LABS: PCO2 71.6 mmHg (35.0-45.0)
[2019-05-17] VITALS (66 sets, daily range): BP systolic 102–183; BP diastolic 45–121
[2019-05-17 03:08] LABS: HEMATOCRIT 26.7 % (42.0-52.0); HEMOGLOBIN 8.6 gm/dL (14.0-18.0)
[2019-05-17 03:20] LABS: CALCIUM 9.2 mg/dL (8.5-10.1); MAGNESIUM 2.2 mg/dL (1.8-2.4); POTASSIUM 3.9 mmol/L (3.5-5.1)
--- NOTE | 2019-05-17 06:44 | NUR ---
PT GOING FOR EGD THIS AM. CONSENT SIGNED BY LUCILLE IN CHART.
--- NOTE | 2019-05-17 11:41 | NUR ---
ASSUMED CARE OF PT AT 0645. PLAN FOR EGD TODAY. CPAP AFTER EGD. NO NEW COMPLAINTS. DAUGHTER SPOKE TO JERAD ABOUT PLAN.
[2019-05-17 12:10] LABS: MCH 29.2 pg (26.0-34.0); MCHC 32.8 % (28.0-37.0); RBC 2.97 mil/uL (4.50-6.00); RDW 16.4 % (10.5-14.5); WBC 10.9 thou/uL (4.0-11.0)
[2019-05-17 16:45] LABS: BE(vivo) 15.7 mmol/L (-2 to +3); HCO3 42.9 mmol/L (22.0-26.0); PO2 118.5 mmHg (80.0-100.0); pH 7.419 (7.360-7.450); sO2 98.2 % (92.0-98.0)
[2019-05-17 16:47] LABS: PCO2 67.8 mmHg (35.0-45.0)
[2019-05-17 23:10] LABS: HAV IgM AB (ANTI-HAV IgM) Negative (Negative); HEPATITIS B SURFACE AG Negative (Negative); HEPATITIS C VIRUS AB 0.1 (0.0-0.9)
[2019-05-18] VITALS (26 sets, daily range): BP systolic 93–143; BP diastolic 46–74
[2019-05-18 02:08] LABS: HAV IgM AB (ANTI-HAV IgM) Negative (Negative); HEPATITIS B SURFACE AG Negative (Negative); HEPATITIS C VIRUS AB 0.1 (0.0-0.9)
[2019-05-18 05:15] LABS: MCH 28.2 pg (26.0-34.0); MCHC 31.2 g/dL (28.0-37.0); MCV 90.1 fL (80.0-100.0); RBC 3.55 mil/uL (4.50-6.00); RDW 16.1 % (10.5-14.5); WBC 11.7 thou/uL (4.0-11.0)
[2019-05-18 05:24] LABS: CALCIUM 9.6 mg/dL (8.5-10.1); CREATININE 2.3 mg/dL (0.7-1.3); MAGNESIUM 2.3 mg/dL (1.8-2.4); POTASSIUM 3.9 mmol/L (3.5-5.1)
--- NOTE | 2019-05-18 08:12 | NUR ---
No event tonight. Pt remains and vent. Follow commands appropriately. VSS. Plan for CPAP trail this am.
--- NOTE | 2019-05-18 10:45 | NUR ---
0800-assessment Pt was lightly sedated. Propofol gtt 35. Coarse LS. Murmur. SR/PAC. No OG tube at this time. No edema. VSS. Family was at bedside. 0945 Lasix was not administered by film processing shift supervisor RN due to high sodium. Talked to Dr. Jiang re lasix and elevated sodium level. Dr. Jiang discontinued lasix.
--- NOTE | 2019-05-18 11:26 | P ---
[facility] [place] [address] PROCEDURE REPORT Name: LAVERN LOWRY Room #: 243-P [facility] IN M.R.#: [id number] Admission: 05/14/19 Attend Phys: Willard Roldan MD Discharge: Date of : 50 Report #: [id number] THIS REPORT FOR: //name// CC: FAM unknown Willard [facility] DATE OF SERVICE: 05/17/2019 PROCEDURE PERFORMED: Upper endoscopy. HISTORY OF PRESENT ILLNESS: The patient is a 68-year-old male with respiratory failure, currently sedated on a ventilator in the ICU. GI was consulted for anemia and Hemoccult positive stools. The patient is unable to give any history. His daughter is present. No previous history of GI bleed that she is aware of. The patient has received 1 unit of packed cells on 05/15/2019. His last hemoglobin was 8.6 today, was 7.5 yesterday. The patient is on Pepcid at this time. Plan is for EGD. DESCRIPTION OF PROCEDURE: The risks and benefits of the procedure were explained to the patient's family, those risks including but not limited to bleeding, perforation and the risk of sedation. They understood these risks and gave informed consent. The procedure was performed in the ICU. Again, the patient is already sedated on propofol at this time and is on a ventilator. Next, using a standard Olympus upper endoscope, the scope was placed in the patient's mouth and advanced under direct vision through the esophagus, stomach and into the second portion of the duodenum. Of note, an OG tube is in place. The tip of the tube was actually in the duodenum, so this was brought back up into the patient's stomach. The esophagus was normal throughout. The GE junction was normal. In the stomach, there was a small amount of fluid. This was aspirated away. There is a diffuse mild gastritis, several linear ulcerations, chronic appearing were in the stomach. No signs of bleeding. There was no blood throughout the exam today. The pylorus was normal and patent. The duodenal bulb, first and second portion were all normal. The scope was then withdrawn and the procedure terminated with the patient tolerated the procedure well. IMPRESSION: Gastritis with linear gastric ulcers. No active bleeding at this time. Possible etiology, however, of heme positive stools and anemia. OG was left in place today in the patient's stomach. RECOMMENDATIONS: 1. We will discontinue Pepcid and start IV Protonix once a day. 2. Continue to monitor hemoglobin. 3. At some point, the patient needs a colonoscopy as well. [address] [address] PROCEDURE REPORT Name: LAVERN LOWRY Room #: 243-P [facility] IN M.R.#: [id number] Admission: 05/14/19 Attend Phys: Willard Roldan MD Discharge: Date of : 50 Report #: [id number] Thank you for allowing me to participate in his care. <ELECTRONICALLY SIGNED> By: Adriel Auguste MD 05/18/19 1126 [id number] Adriel Auguste MD /nt
--- NOTE | 2019-05-18 16:11 | NUR ---
1235-OG tube in. Placement was confirmed by auscultation & KUB @1249. 1300-LIMS was resumed. Greenish bile drainage was suctioned. 1430-Propofol was titrated to 10mcg for sedation vacation. Pt tried to touch his ET tube and OG tube. Back to sedation @35 mcg of Propofol.
[2019-05-19] VITALS (24 sets, daily range): BP systolic 102–162; BP diastolic 47–71
[2019-05-19 05:06] LABS: HEMATOCRIT 31.6 % (42.0-52.0); MCH 28.4 pg (26.0-34.0); MCHC 31.6 g/dL (28.0-37.0); MCV 89.9 fL (80.0-100.0); RBC 3.51 mil/uL (4.50-6.00); RDW 16.3 % (10.5-14.5); WBC 9.9 thou/uL (4.0-11.0)
[2019-05-19 05:12] LABS: CALCIUM 9.3 mg/dL (8.5-10.1); MAGNESIUM 2.6 mg/dL (1.8-2.4); POTASSIUM 4.1 mmol/L (3.5-5.1)
--- NOTE | 2019-05-19 07:36 | NUR ---
TITRATING DOWN DIPRIVAN THROUGHOUT THE NIGHT. CPAP TRIAL THIS AM.
[2019-05-19 07:42] LABS: BE(vivo) 12.9 mmol/L (-2 to +3); HCO3 39.3 mmol/L (22.0-26.0); PCO2 60.5 mmHg (35.0-45.0); PO2 95.5 mmHg (80.0-100.0); pH 7.431 (7.360-7.450); sO2 97.3 % (92.0-98.0)
--- NOTE | 2019-05-19 10:05 | NUR ---
0700-Pt's propofol was turned off for sedation vacation. RT initiated C-PAP mode @0645. Pt was awake and followed commands appropriately. LS coarse. Tachycardia (102-106) w/ murmur. 0740-RT checked Blood gas and Dr. Esquivel acmowledged extubation. 08-Pt was extubated. Suctioned secreation. Pt requested ice chips. 09-Dr. Jiang at bedside. Notified sodium level, tachycardia and decreased UO. 09- was notified for consult as Dr. Jiang requested 944-08/01 NS was administered per order. Pt took pill w/ apple sauce. Coughed w/ water.
[2019-05-20] VITALS (14 sets, daily range): BP systolic 99–155; BP diastolic 49–78
--- NOTE | 2019-05-20 05:06 | NUR ---
AOX4. FOLLOWS COMMANDS. DENIES PAIN. VSS. AFEBRILE. ON BIPAP FOR SLEEP, TOLERATED DURING THE NIGHT.NO COMPLAINS PRESENTLY.WILL CONTINUE TO MONITOR PT.
--- NOTE | 2019-05-20 14:48 | NUR ---
FOLLOWING FOR DC PLANNING. CLINICAL INFO REVIEWED. PT EXTUBATED 05/18/19 AND ON 2 L NC O2 AND SLEEPS WITH BIPAP (HAS BIPAP AT HOME TOO). ADMIT FROM SKILLED ERHAB AT [facility] WITH PLAN TO RETURN WHEN MEDICALLY STABLE. REQUESTED DC FOOD SERVICE STEWARD FAX THERAPY EVALS AND PROGRESS NOTE FROM TODAY TO FACILITY ADMISSIONS FOR POSSIBLE RETURN TO SKILLED NEXT 1-2 DAYS.
--- NOTE | 2019-05-20 15:47 | NUR ---
ASSESSMENTS AND INTERVENTIONS DOCCUMENTED. PATIENT AND FAMILY UPDATED ON PLAN OF CARE. PATIENT WORKING WITH OT AND PT. PATIENT TRANSFERRED TO AT 1545.
[2019-05-20 18:36] LABS: HEMATOCRIT 29.3 % (42.0-52.0); HEMOGLOBIN 9.5 gm/dL (14.0-18.0); MCHC 32.3 g/dL (28.0-37.0); MCV 89.5 fL (80.0-100.0); RBC 3.27 mil/uL (4.50-6.00); RDW 16.1 % (10.5-14.5)
[2019-05-20 19:07] LABS: CALCIUM 8.6 mg/dL (8.5-10.1); CREATININE 2.2 mg/dL (0.7-1.3); MAGNESIUM 2.3 mg/dL (1.8-2.4); POTASSIUM 4.2 mmol/L (3.5-5.1)
--- NOTE | 2019-05-20 20:16 | NUR ---
pt was transfered from ICU, pt is A&OX3, PT is continuing o2 2L/MIN/NC, PT'S VS and o2sat are stable,
--- NOTE | 2019-05-21 04:14 | NUR ---
SLEPT MOST OF SHIFT. TURNS SELF. REMAINS DROWSY. ASSIST TO REPOSITION NEEDED. TAKING FLUIDS WELL. WORKING ON GOALS AND PLAN OF CARE FOR NOC. DENIES COMPLAINTS OF PAIN THIS SHIFT. REMAINS WITH SHORTNESS OF AIR WITH ACTIVTIY. PROGRESSING SLOWLY TOWARDS DISCHARGE GOALS. CONTINUE TO ASSES CLOSELY.
[2019-05-21 04:19] VITALS: BP 118/58
[2019-05-21 05:37] LABS: HEMATOCRIT 27.8 % (42.0-52.0); HEMOGLOBIN 9.1 gm/dL (14.0-18.0); MCHC 32.6 g/dL (28.0-37.0); MCV 88.8 fL (80.0-100.0); RBC 3.13 mil/uL (4.50-6.00); RDW 15.9 % (10.5-14.5)
[2019-05-21 06:06] LABS: ALBUMIN 2.3 g/dL (3.4-5.0); CALCIUM 8.7 mg/dL (8.5-10.1); DIRECT BILIRUBIN 0.2 mg/dL (<0.1-0.3); MAGNESIUM 2.3 mg/dL (1.8-2.4); PHOSPHORUS 4.2 mg/dL (2.5-4.9); POTASSIUM 3.9 mmol/L (3.5-5.1); TOTAL BILIRUBIN 0.4 mg/dL (<0.1-1.0); TOTAL PROTEIN 6.6 g/dL (6.4-8.2)
[2019-05-21 07:54] VITALS: BP 111/54
--- NOTE | 2019-05-21 11:24 | NUR ---
Human Resources Compensation Analyst [facility] called inquiring as to when patient will be discharged. Patient was up to chair and walked to door with PT; patient is working steadily towards discharge goals.
[2019-05-21 11:51] VITALS: BP 113/53
--- NOTE | 2019-05-21 14:20 | NUR ---
DISCHARGE PLANNING. PATIENT ADMITTED FROM [facility]. PLAN IS FOR PATIENT TO RETURN TO [facility]. POSSIBLY TODAY, PENDING ATTENDING DISCHARGE ORDERS. CALL PLACED TO HENOK, VP AD SALES WEST FOR [facility]. HENOK IS ACCEPTING OF PATIENT AT DISCHARGE. HOWEVER, HAS NO TRANSPORTATION SERVICES AT THIS TIME. CLINICAL INFORMATION FAXED TO HENOK PER REQUEST. HENOK TO FORWARD CLINICALS TO ADMITTING PHYSICIAN, DR PALENCIA, FOR ACCEPTANCE BACK TO [facility]. UNIT CM NOTIFIED OF ABOVE. FOLLOWING.
[2019-05-21 16:42] VITALS: BP 112/58
[2019-05-21 19:54] VITALS: BP 101/56
[2019-05-22 04:12] VITALS: BP 115/57
--- NOTE | 2019-05-22 06:13 | NUR ---
PT WAS ON BIPAP FROM [id number] THEN BACK TO NASAL CANNULA. PT UP TO BSC WITH X1. PT HAD BM OVERNIGHT. PT HOB UP TO HELP WITH BREATHING AND PT TAKES PILLS SLOWLY WITH THIN LIQUIDS AND STILL COUGHS. PT COULD DC TO REHAB IN [place], [place]. HOURLY ROUNDING.
[2019-05-22 07:28] VITALS: BP 121/53
[2019-05-22 07:45] LABS: HEMATOCRIT 27.3 % (42.0-52.0); HEMOGLOBIN 8.8 gm/dL (14.0-18.0); MCH 28.6 pg (26.0-34.0); MCHC 32.4 g/dL (28.0-37.0); MCV 88.3 fL (80.0-100.0); RBC 3.09 mil/uL (4.50-6.00); RDW 15.8 % (10.5-14.5)
[2019-05-22 08:02] LABS: ALBUMIN 2.3 g/dL (3.4-5.0); CALCIUM 8.8 mg/dL (8.5-10.1); CREATININE 2.1 mg/dL (0.7-1.3); MAGNESIUM 2.2 mg/dL (1.8-2.4); PHOSPHORUS 3.7 mg/dL (2.5-4.9)
[2019-05-22 08:19] VITALS: BP 121/53
--- NOTE | 2019-05-22 11:59 | NUR ---
DISCHARGE NOTE: ESTEFANY reviewed chart and spoke with nursing and attending physician. Pt is medically stable for discharge back to [facility] today. ESTEFANY received call from pt's dtr, Roro, regarding discharge plan. Roro states she spoke with rent and miscellaneous remittance clerk, who states pt is stable for discharge. Roro has pt's bipap and will take to the SNF. Awaiting final discharge orders/summary at this time. party planner to coordinate. Chart copy ordered. ESTEFANY is following to finalize discharge.
[2019-05-22] MEDS ORDERED: LASIX 40 MG TAB40 M1 PO (12:51)
[2019-05-22] MEDS ORDERED: PULMICORT0.5 MG/21 INH (12:53)
[2019-05-22] MEDS ORDERED: PROTONIX40 M2 PO (12:54)
--- NOTE | 2019-05-22 15:00 | NUR ---
PT SENT BACK TO DISCHARGE AT [facility] PER EMS..PRINCE REMOVED AND [facility] REMOVED...
--- NOTE | 2019-05-31 12:58 | HC ---
[facility] [place] [address] CONSULTATION Name: LAVERN LOWRY Room #: 353-P [facility] IN M.R.#: [id number] Admission: 05/14/19 Attend Phys: Willard Roldan MD Discharge: 05/22/19 Date of : 50 Report #: [id number] THIS REPORT FOR: //name// CC: FAM unknown Willard HU DATE OF SERVICE: 05/22/2019 HISTORY OF PRESENT ILLNESS: The patient is a 68-year-old male, who was previously admitted to [facility] from 05/04/2019 to 05/10/2019 with acute on chronic hypoxemic respiratory failure, congestive heart failure, elevated troponin, severe pulmonary hypertension, and left lower lobe infiltrate. He was diuresed was felt to be stabilized and discharged to a [facility]p facility. He apparently refused the BiPAP at night and ran into trouble with acute mental status changes. Gamal coma scale of 9, sats in the 70s, was minimally responsive, intubated in the ER in [place], and life-flighted to [facility]. He was treated for acute on chronic respiratory failure, acute on chronic diastolic heart failure. There was concern regarding a GI bleed and EGD showed multiple clean based ulcers. Hemoglobin is being followed. Cardiology and Nephrology has been involved regarding his heart failure. He is doing much better now and we are seeing him in rehabilitation medicine consultation. PAST MEDICAL HISTORY: Severe aortic stenosis, moderate mitral stenosis, moderate tricuspid regurgitation, and pulmonary hypertension. He has had prior coronary artery bypass grafting x 1. He has a history of diabetes mellitus, hyperlipidemia, carotid endarterectomy, right fem-pop bypass, and chronic kidney disease. He has had prior bilateral thoracotomies with decortication. His prior history also includes CHF, chronic kidney disease, diabetes, and hypertension. MEDICATIONS: Please see the full medication listing. ALLERGIES: ROSIGLITAZONE. HABITS: No note of any alcohol or tobacco abuse. SOCIAL HISTORY: Lives in a house alone in the [place], [place] area, ranch-style with ramp. No assistive device, 4-wheeled walker in the community. No assistive device in the house. He has 7 children with at least some of them in the area. REVIEW OF SYSTEMS: No current complaints of chest pain, shortness of breath or abdominal discomfort. [address] [address] CONSULTATION Name: LAVERN LOWRY Room #: 353-P [facility] IN ..#: [id number] Admission: 05/14/19 Attend Phys: Willard Roldan MD Discharge: 05/22/19 Date of : 50 Report #: [id number] PHYSICAL EXAMINATION: GENERAL: A 68-year-old male in no obvious distress. He is alert, appears pleasant. HEENT: Appeared to be benign. Cranial nerves grossly intact. Facies are symmetric. VITAL SIGNS: His temperature is 97.7, pulse 64, respirations 18, and blood pressure 121/53. NEUROLOGIC: He has functional range of motion of both upper extremities with strength grade 4-/5. DTRs are trace to 1. Lower extremities, no focal calf swelling, functional range of motion of strength is grade 4-/5. He does have exogenous obesity. Functionally, he is min assist with sit to stand. Gait 150 feet min assist with a front-wheeled walker. ASSESSMENT: A 68-year-old white male with the following problem list: 1. Medical complexity with generalized debilitation. 2. Acute on chronic hypoxemic respiratory failure, improved/resolved. 3. Acute on chronic diastolic heart failure. 4. Gastrointestinal bleed, likely upper with clean based ulcers on esophagogastroduodenoscopy. 5. Chronic renal insufficiency, stage 3. 6. Diabetes mellitus type 2. 7. Obstructive sleep apnea, needs BiPAP. PLAN: [facility] beds are tight. Note that case management is involved and is making arrangements for him to go to the usp facility in [place], [place]. I am in agreement with this plan when medically cleared. Thank you for asking us to assist in this patient's care. <ELECTRONICALLY SIGNED> By: Max Macdonald MD 05/31/19 [id number] Max Macdonald MD /nt
== END 2019-05-22 15:44 | DRG 207 ==
LOC: ICU 14:34 → 3W 18:38
PROVIDERS: Hospitalist; Internal Medicine; Nurse Practitioner; Nurse Practitioner Acute Care; Pediatrics; ADMIT Internal Medicine
PROC: 5A1955Z Respiratory Ventilation, Greater than 96 Consecutive Hours (ICD-10-PCS; principal; 2019-05-14)
PROC: 06HY33Z Insertion of Infusion Device into Lower Vein, Percutaneous Approach (ICD-10-PCS; principal; 2019-05-14)
PROC: 0BH17EZ Insertion of Endotracheal Airway into Trachea, Via Natural or Artificial Opening (ICD-10-PCS; principal; 2019-05-14)
PROC: 30233N1 Transfusion of Nonautologous Red Blood Cells into Peripheral Vein, Percutaneous Approach (ICD-10-PCS; 2019-05-15)
PROC: 0DJ08ZZ Inspection of Upper Intestinal Tract, Via Natural or Artificial Opening Endoscopic (ICD-10-PCS; 2019-05-17)
PROC: 5A09357 Assistance with Respiratory Ventilation, Less than 24 Consecutive Hours, Continuous Positive Airway Pressure (ICD-10-PCS; 2019-05-17)
PROC: 5A09357 Assistance with Respiratory Ventilation, Less than 24 Consecutive Hours, Continuous Positive Airway Pressure (ICD-10-PCS; 2019-05-19)
PROC: 5A09357 Assistance with Respiratory Ventilation, Less than 24 Consecutive Hours, Continuous Positive Airway Pressure (ICD-10-PCS; 2019-05-20)
PROC: 5A09357 Assistance with Respiratory Ventilation, Less than 24 Consecutive Hours, Continuous Positive Airway Pressure (ICD-10-PCS; 2019-05-21)
DX: J96.21 Acute and chronic respiratory failure with hypoxia (principal); I50.33 Acute on chronic diastolic (congestive) heart failure; K29.71 Gastritis, unspecified, with bleeding; K25.4 Chronic or unspecified gastric ulcer with hemorrhage; I13.0 Hypertensive heart and chronic kidney disease with heart failure and stage 1 through stage 4 chronic kidney disease, or unspecified chronic kidney disease; N17.9 Acute kidney failure, unspecified; E87.0 Hyperosmolality and hypernatremia; J96.22 Acute and chronic respiratory failure with hypercapnia; N18.3 Chronic kidney disease, stage 3 (moderate); I25.10 Atherosclerotic heart disease of native coronary artery without angina pectoris; J44.9 Chronic obstructive pulmonary disease, unspecified; K21.9 Gastro-esophageal reflux disease without esophagitis; I27.81 Cor pulmonale (chronic); D50.9 Iron deficiency anemia, unspecified; E03.9 Hypothyroidism, unspecified; R13.10 Dysphagia, unspecified; E66.9 Obesity, unspecified; E78.5 Hyperlipidemia, unspecified; G47.33 Obstructive sleep apnea (adult) (pediatric); I08.3 Combined rheumatic disorders of mitral, aortic and tricuspid valves; E11.22 Type 2 diabetes mellitus with diabetic chronic kidney disease; E11.51 Type 2 diabetes mellitus with diabetic peripheral angiopathy without gangrene; I27.20 Pulmonary hypertension, unspecified; Z95.1 Presence of aortocoronary bypass graft; Z79.84 Long term (current) use of oral hypoglycemic drugs; Z88.8 Allergy status to other drugs, medicaments and biological substances; Z82.49 Family history of ischemic heart disease and other diseases of the circulatory system; Z83.3 Family history of diabetes mellitus; Z99.81 Dependence on supplemental oxygen; Z87.891 Personal history of nicotine dependence; Z68.25 Body mass index [BMI] 25.0-25.9, adult
CPT/HCPCS: 10078; 10879; 85076

== ENCOUNTER → 2019-09-16 | Outpatient (CLI) | payer OTHER ==
[~2019-09-16] MED LIST changes: +FUROSEMIDE 40 M40 MG PO; +NEURONTIN 300M300 M2 PO; +PREDNISOLONE 5 M5 M1 PO; +PROTONIX40 M2 PO; +PULMICORT0.5 MG/21 INH; +SPIRONOLACTONE25 MG PO
== END ==
LOC: SJCVCIMAG 08:00
DX: I70.203 Unspecified atherosclerosis of native arteries of extremities, bilateral legs (principal); I25.10 Atherosclerotic heart disease of native coronary artery without angina pectoris; I27.20 Pulmonary hypertension, unspecified; E11.21 Type 2 diabetes mellitus with diabetic nephropathy; E11.22 Type 2 diabetes mellitus with diabetic chronic kidney disease; I13.0 Hypertensive heart and chronic kidney disease with heart failure and stage 1 through stage 4 chronic kidney disease, or unspecified chronic kidney disease; I50.30 Unspecified diastolic (congestive) heart failure; N18.3 Chronic kidney disease, stage 3 (moderate); E78.5 Hyperlipidemia, unspecified; G47.33 Obstructive sleep apnea (adult) (pediatric); Z79.4 Long term (current) use of insulin; Z79.899 Other long term (current) drug therapy; Z87.891 Personal history of nicotine dependence